=== PATIENT | female | born 1975 | race Caucasian/White ===

== ENCOUNTER 2017-06-15 11:17 | Emergency (ER) | payer SELFPAY ==
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
== END 2017-06-15 14:43 | disposition home or self-care (01) ==
LOC: ER 11:17
DX: M54.2 Cervicalgia (principal); M25.552 Pain in left hip; V49.49XA Driver injured in collision with other motor vehicles in traffic accident, initial encounter; F17.210 Nicotine dependence, cigarettes, uncomplicated; Z88.5 Allergy status to narcotic agent
CPT/HCPCS: 72125; 72131; 99284

== ENCOUNTER 2019-09-17 10:24 | Emergency (ER) | payer SELFPAY ==
[2019-09-17] MEDS ORDERED: FENTANYL CITR 100 MCG/2 ML ONE ×2 (11:01→12:01)
[2019-09-17] MEDS ORDERED: ONDANSETRON 4 MG/2 ML VIAL ONE (11:01)
[2019-09-17] MEDS ORDERED: NA CHLORIDE 0.9% 1,000 ML ONE (11:01)
[2019-09-17 11:02] LABS: Absolute Lymphocytes (CBC) 1.5 K/uL (0.7-4.9); Basophils % 1.3 % (0-1.3); Hematocrit 40.7 % (36.0-45.0); Lymphocytes % 18.3 % (15.3-44.8); MPV 8.9 fL (7.6-11.3); RBC Red Blood Cell Count 5.29 M/uL (3.86-4.86)
[2019-09-17 11:21] LABS: Albumin 3.8 g/dL (3.4-5.0); Bilirubin Direct 2.2 mg/dL (0-0.2); Bilirubin Total 2.7 mg/dL (0.2-1.0); Protein, Total 7.3 g/dL (6.4-8.2)
--- NOTE | 2019-09-17 11:24 | RAD REPORT ---
EXAM DESCRIPTION: US - Abdomen Exam Limited - 09/17/2019 11:18 am CLINICAL HISTORY: ABD PAIN COMPARISON: No comparisons FINDINGS: Numerous small less than 5 mm gallstones are present collecting in the dependent portion o f the gallbladder wall. There is no wall thickening or pericholecystic fluid. No common duct stone or biliary tree dilatation identified. IMPRESSION: Numerous small gallstones with no acute gallbladder wall finding. No duct stone or biliary tree dilatation identifiable.
[2019-09-17] MEDS ORDERED: PROMETHAZINE INJ 25 MG/ML AMP ONE ×2 (11:59→15:04)
[2019-09-17] MEDS ORDERED: NA CHLORIDE 0.9% 250 ML ONE (12:02)
--- NOTE | 2019-09-17 12:24 | EDPHYS ---
Physician Documentation [facility] Name: Rachel King Age: 43 yrs Sex: Female : 1975 Arrival Date: 09/17/2019 Time: 10:26 Bed 16 Private MD: ED Physician Todd Pool HPI: 09/16 11:55 This 43 yrs old Female presents to ER via Ambulatory with complaints of kb Abdominal Pain, Nausea/Vomiting. 11:55 The patient presents with abdominal pain in the right upper quadrant. Onset: The kb symptoms/episode began/occurred 2 day(s) ago. The symptoms radiate to right back. Associated signs and symptoms: Pertinent positives: nausea and vomiting, Pertinent negatives: anorexia, blood in stools, chest pain, constipation, diarrhea, dysuria, fever, headache, hematuria, palpitations, shortness of breath, vaginal discharge, vomiting blood. The symptoms are described as constant. Modifying factors: The symptoms are alleviated by nothing, the symptoms are aggravated by pressure. Severity of pain: At its worst the pain was severe in the emergency department the pain is unchanged. The patient has not experienced similar symptoms in the past. The patient has been recently seen by a physician: the ER physician, out of Town, yesterday, with similar presenting complaints, and apparently given a diagnosis of gallstones. 12:03 Pt reports RUQ pain that radiates to back, nausea and vomiting. States she was seen at [facility] ER last night and discharged with gallstones. States pain has been unbearable today and she has been unable to tolerate anything by mouth. . Historical: - Allergies: 11:11 Codeine; jr10 - Home Meds: 11:11 levothyroxine oral [Active]; jr10 - PMHx: 11:11 Thyroid problem; jr10 - Immunization history:: Adult Immunizations up to date. - Social history:: Smoking status: Patient reports the use of cigarette tobacco products, smokes one pack cigarettes per day. ROS: 11:53 Constitutional: Negative for fever, chills, and weight loss, Cardiovascular: Negative kb for chest pain, palpitations, and edema, Respiratory: Negative for shortness of breath, cough, wheezing, and pleuritic chest pain, Back: Negative for injury and pain, MS/Extremity: Negative for injury and deformity, Skin: Negative for injury, rash, and discoloration, Neuro: Negative for headache, weakness, numbness, tingling, and seizure. 11:53 Abdomen/GI: Positive for abdominal pain, nausea and vomiting, Negative for diarrhea, constipation, abdominal cramps, abdominal distension, anorexia. Exam: 11:53 Head/Face: Normocephalic, atraumatic. Chest/axilla: Normal chest wall appearance and kb motion. Nontender with no deformity. No lesions are appreciated. Cardiovascular: Regular rate and rhythm with a normal S1 and S2. No gallops, murmurs, or rubs. Normal PMI, no JVD. No pulse deficits. Respiratory: Lungs have equal breath sounds bilaterally, clear to auscultation and percussion. No rales, rhonchi or wheezes noted. No increased work of breathing, no retractions or nasal flaring. Skin: Warm, dry with normal turgor. Normal color with no rashes, no lesions, and no evidence of cellulitis. MS/ Extremity: Pulses equal, no cyanosis. Neurovascular intact. Full, normal range of motion. Neuro: Awake and alert, GCS 15, oriented to person, place, time, and situation. Cranial nerves II-XII grossly intact. Motor strength 5/5 in all extremities. Sensory grossly intact. Cerebellar exam normal. Normal gait. 11:53 Constitutional: The patient appears alert, awake, in obvious pain, uncomfortable. 11:53 Abdomen/GI: Inspection: abdomen appears normal, Bowel sounds: normal, in all quadrants, Palpation: soft, in all quadrants, moderate abdominal tenderness, in the right upper quadrant. 18:36 ECG was reviewed by the Attending Physician. kdr Vital Signs: 10:40 BP 146 / 71; Pulse 44; Resp 20; Temp 98.2(O); Pulse Ox 100% on R/A; Pain 10/10; jr10 11:59 BP 180 / 84; Pulse 44; Resp 24; Pulse Ox 100% on R/A; Pain 8/10; jr10 12:36 BP 156 / 94; Pulse 48; Resp 18; Pulse Ox 100% on R/A; ks7 12:42 Pulse Ox 100% ; ks7 13:18 BP 105 / 93; Pulse 46; Resp 24; Pulse Ox 100% on R/A; Pain 9/10; jr10 14:30 BP 110 / 95; Pulse 46; Resp 20; Pulse Ox 100% on R/A; Pain 8/10; jr10 MDM: 10:32 Patient medically screened. 11:42 Data reviewed: vital signs, nurses notes. Data interpreted: Pulse oximetry: on room air kb is 100 %. Interpretation: normal. Physician consultation: German Torres MD was contacted at 11:35, regarding consult, patient's condition, and will see patient in inpatient room. 11:43 Physician consultation: Geremias Pickard MD was contacted at 11:40, regarding admission, kb to the medical/surgical unit. patient's condition, would like consultation with . Wants me to confirm that Marcel will consult prior to admitting pt. 11:43 Physician consultation: He Rod MD was contacted at 11:42, regarding consult, kb patient's condition, message left with staff, awaiting call back. 11:51 Physician consultation: He Rod MD was contacted at 11:51, after a discussion of kb the case, a recommendation for transfer for higher level of care is made, Dr Rod states pt has obstructive jaundice and needs an ERCP. He is unable to do ERCP and requests pt be transferred. 11:52 Counseling: I had a detailed discussion with the patient and/or guardian regarding: the kb historical points, exam findings, and any diagnostic results supporting the discharge/admit diagnosis, lab results, radiology results, the need to transfer to another facility, for higher level of care, [facility] does not immediately have the required specialist. 12:42 ED course: Pt accepted for transfer by [facility] hospitalist and for consult by [facility] GI. Hospitalist wants pt swabbed for COVID here and swab sent with pt to be tested at their facility. . 09/16 10:42 Order name: Basic Metabolic Panel; Complete Time: 11:35 09/16 10:42 Order name: CBC with Diff; Complete Time: 11:17 kb 09/16 10:42 Order name: Hepatic Function; Complete Time: 11:35 kb 09/16 10:42 Order name: Lipase; Complete Time: 11:35 09/16 12:45 Order name: COVID-19 09/16 10:42 Order name: US Abdomen Limited; Complete Time: 11:35 09/16 10:42 Order name: IV Saline Lock; Complete Time: 11:11 kb 09/16 10:42 Order name: Labs collected and sent; Complete Time: 11:11 kb 09/16 13:12 Order name: EKG; Complete Time: 13:12 jr10 09/16 13:12 Order name: EKG - Nurse/Tech; Complete Time: 13:12 jr10 EC:36 Rate is 45 beats/min. Rhythm is regular, Sinus bradycardia with No ectopy. QRS [place] is kdr Normal. AL interval is normal. QRS interval is normal. QT interval is normal. No Q waves. Clinical impression: Sinus bradycardia. Administered Medications: 10:56 Drug: NS 0.9% 1000 ml Route: IV; Rate: 1000 ml; Site: left forearm; jr10 14:10 Follow up: Response: No adverse reaction; IV Status: Completed infusion jr10 10:56 Drug: Zofran (Ondansetron) 4 mg Route: IVP; Site: left forearm; jr10 11:25 Follow up: Response: No adverse reaction jr10 11:11 Drug: fentaNYL (PF) 50 mcg Route: IVP; Site: left forearm; jr10 11:25 Follow up: Response: No adverse reaction jr10 11:58 Drug: Phenergan 12.5 mg Route: IVP; Site: left forearm; jr10 12:42 Follow up: Pulse Ox 100% ; pt still nauseous ks7 13:17 Follow up: Response: No adverse reaction jr10 11:58 Drug: fentaNYL (PF) 50 mcg Route: IVP; Site: left forearm; jr10 13:17 Follow up: Response: No adverse reaction jr10 12:55 Drug: Zosyn 3.375 grams Route: IVPB; Infused Over: 60 mins; Site: left forearm; jr10 14:10 Follow up: Response: No adverse reaction; IV Status: Completed infusion jr10 14:55 Drug: Phenergan 12.5 mg {Note: given via AQUILES Michael.} Route: IVP; Site: left forearm; jr10 Disposition: 16:34 Co-signature as Attending Physician, Todd Pool MD I agree with the assessment and kdr plan of care. Disposition: 09/17/19 12:23 Transfer ordered to [facility]. Diagnosis are Cholelithiasis, Abnormal results of liver function studies. - Reason for transfer: Higher level of care. - Accepting physician is [facility]. - Condition is Stable. - Problem is new. - Symptoms are unchanged. Signatures: Dispatcher [employer] Charity Sheikh, UNDERGRADUATE ADVISOR-C UNDERGRADUATE ADVISOR-Todd Loya MD MD kdr Rivera, Jessica RN RN jr10 Iliana Palumbo RN ks7 Corrections: (The following items were deleted from the chart) 14:57 12:23 09/17/2019 12:23 Transfer ordered to [facility]. jr10 Diagnosis is Cholelithiasis; Abnormal results of liver function studies. Reason for transfer: Higher level of care. Accepting physician is [facility]. Condition is Stable. Problem is new. Symptoms are unchanged. kb
--- NOTE | 2019-09-17 12:24 | ER ---
Nurse's Notes [facility] Name: Rachel King Age: 43 yrs Sex: Female : 1975 Arrival Date: 09/17/2019 Time: 10:26 Bed 16 Private MD: Diagnosis: Cholelithiasis;Abnormal results of liver function studies Presentation: 09/16 10:40 Chief complaint: Patient states: Pt presents to the ED from home with c/o RUQ abd pain jr10 and n/v x2 days. States that she was seen at [facility] yesterday and dx with gallstones. Reports hx of gallstones and has been unable to follow up with general surgeon. Coronavirus screen: Client denies travel out of the [place] in the last 14 days. At this time, the client does not indicate any symptoms associated with coronavirus-19. Ebola Screen: No symptoms or risks identified at this time. Initial Sepsis Screen: Does the patient meet any 2 criteria? No. Patient's initial sepsis screen is negative. Does the patient have a suspected source of infection? No. Patient's initial sepsis screen is negative. Risk Assessment: Do you want to hurt yourself or someone else? Patient reports no desire to harm self or others. Onset of symptoms was September 15, 2019. 10:40 Method Of Arrival: Ambulatory jr10 10:40 Acuity: TWILA 2 jr10 Historical: - Allergies: 11:11 Codeine; jr10 - Home Meds: 11:11 levothyroxine oral [Active]; jr10 - PMHx: 11:11 Thyroid problem; jr10 - Immunization history:: Adult Immunizations up to date. - Social history:: Smoking status: Patient reports the use of cigarette tobacco products, smokes one pack cigarettes per day. Screenin:40 Abuse screen: Denies threats or abuse. Denies injuries from another. Nutritional jr10 screening: No deficits noted. Tuberculosis screening: No symptoms or risk factors identified. Fall Risk No fall in past 12 months (0 pts). No secondary diagnosis (0 pts). IV access (20 points). Ambulatory Aid- None/Bed Rest/Nurse Assist (0 pts). Gait- Normal/Bed Rest/Wheelchair (0 pts) Mental Status- Oriented to own ability (0 pts). Assessment: 10:40 General: Appears distressed, uncomfortable, Behavior is restless. Pain: Complains of jr10 pain in posterior aspect of right lateral abdomen and right upper quadrant Pain radiates to right mid back and right low back Pain currently is 10 out of 10 on a pain scale. Quality of pain is described as crampy, Pain began 2-3 days ago. Is continuous, Alleviated by nothing. Noted to be grimacing, guarding, moaning, restless, Also complains of nausea, diaphoresis. Neuro: No deficits noted. Cardiovascular: No deficits noted. Respiratory: No deficits noted. Airway is patent Respiratory effort is even, unlabored, Respiratory pattern is regular, symmetrical. GI: Abdomen is non-distended, Bowel sounds present X 4 quads. Abd is soft Abdomen is tender to palpation in right upper quadrant Guarding noted Reports intolerance of fluids, intolerance of food, nausea, vomiting, since x2 days. : No deficits noted. No signs and/or symptoms were reported regarding the genitourinary system. EENT: No deficits noted. No signs and/or symptoms were reported regarding the EENT system. Derm: Skin is intact, Skin is clammy, Skin is pale. Musculoskeletal: No deficits noted. No signs and/or symptoms reported regarding the musculoskeletal system. Vital Signs: 10:40 BP 146 / 71; Pulse 44; Resp 20; Temp 98.2(O); Pulse Ox 100% on R/A; Pain 10/10; jr10 11:59 BP 180 / 84; Pulse 44; Resp 24; Pulse Ox 100% on R/A; Pain 8/10; jr10 12:36 BP 156 / 94; Pulse 48; Resp 18; Pulse Ox 100% on R/A; ks7 12:42 Pulse Ox 100% ; ks7 13:18 BP 105 / 93; Pulse 46; Resp 24; Pulse Ox 100% on R/A; Pain 9/10; jr10 14:30 BP 110 / 95; Pulse 46; Resp 20; Pulse Ox 100% on R/A; Pain 8/10; jr10 ED Course: 10:26 Patient arrived in ED. ag5 10:31 Char[facility] Westbrook [facility]C [facility] kb 10:31 Todd Pool MD is Attending Physician. kb 10:35 Supriya Scruggs RN is Primary Nurse. jr10 10:40 Arm band placed on. jr10 10:40 Patient has correct armband on for positive identification. Bed in low position. Call jr10 light in reach. Side rails up X2. Pulse ox on. NIBP on. 10:40 Inserted saline lock: 20 gauge in left forearm, using aseptic technique. IV is patent, jr10 is intact, with good blood return, Flushed. 11:00 Triage completed. jr10 11:14 No provider procedures requiring assistance completed. jr10 11:18 US Abdomen Limited In Process Unspecified. EDMS 14:56 Patient transferred, IV remains in place. intact, No redness/swelling at site. Pressure jr10 dressing applied. Administered Medications: 10:56 Drug: NS 0.9% 1000 ml Route: IV; Rate: 1000 ml; Site: left forearm; jr10 14:10 Follow up: Response: No adverse reaction; IV Status: Completed infusion jr10 10:56 Drug: Zofran (Ondansetron) 4 mg Route: IVP; Site: left forearm; jr10 11:25 Follow up: Response: No adverse reaction jr10 11:11 Drug: fentaNYL (PF) 50 mcg Route: IVP; Site: left forearm; jr10 11:25 Follow up: Response: No adverse reaction jr10 11:58 Drug: Phenergan 12.5 mg Route: IVP; Site: left forearm; jr10 12:42 Follow up: Pulse Ox 100% ; pt still nauseous ks7 13:17 Follow up: Response: No adverse reaction jr10 11:58 Drug: fentaNYL (PF) 50 mcg Route: IVP; Site: left forearm; jr10 13:17 Follow up: Response: No adverse reaction jr10 12:55 Drug: Zosyn 3.375 grams Route: IVPB; Infused Over: 60 mins; Site: left forearm; jr10 14:10 Follow up: Response: No adverse reaction; IV Status: Completed infusion jr10 14:55 Drug: Phenergan 12.5 mg {Note: given via RN. Alec} Route: IVP; Site: left forearm; jr10 Intake: Outcome: 12:23 ER care complete, transfer ordered by MD. flores 14:55 Transferred by [facility] to [facility], Transfer form completed. jr10 14:55 Condition: stable 14:55 Instructed on the need for transfer, Demonstrated understanding of instructions. 14:57 Patient left the ED. jr10 Signatures: Dispatcher [employer] EDMS Charity Westbrook, [employer]-C [employer]-Bia Cary ag5 Iliana Palumbo, RN RN ks7 Supriya Scruggs RN RN jr10
[2019-09-17] MEDS ORDERED: PIPER/TAZO/NS 3.375gm 3.375 GM/100 ML BAG ONE (12:53)
--- OUTSIDE RECORDS SUMMARY | 2019-09-17 13:09 | XMS REPORT | Continuity of Care Document ---
:1975 Author Organization [facility] t Address [address] [place] [address] Care Team Providers Name Role Phone Doctor Unassigned, Name Attending Clinician Unavailable Zarate DO Attending Clinician Problems This patient has no known problems. Allergies, Adverse Reactions, Alerts This patient has no known allergies or adverse reactions. Medications This patient has no known medications. Procedures This patient has no known procedures. Encounters Start End Encounter Admission Attending Care Care Encounter Source Date/Time Date/Time Type Type Clinicians Facility Department ID 2018-10-03 2018-10-03 Orders Doctor ARNOLD [id number] 00:00:00 00:00:00 Only Unassigned, ABRIL [id number] [facility] [id number] 2018-09-16 2018-09-16 Emergency BERNADINE Zarate [id number] 08:27:28 11:43:00 Georges Finnegan [id number] [place] [id number] [place] [id number] Results This patient has no known results.
[2019-09-17 15:03] VITALS: TEMP 98.2; O2SAT 100
[2019-09-17 15:09] VITALS: BP 110/95
== END 2019-09-17 14:57 | disposition short-term general hospital (02) ==
LOC: ER 10:24
DX: K80.20 Calculus of gallbladder without cholecystitis without obstruction (principal); Z20.828 Contact with and (suspected) exposure to other viral communicable diseases; E07.9 Disorder of thyroid, unspecified; F17.210 Nicotine dependence, cigarettes, uncomplicated; Z88.5 Allergy status to narcotic agent
CPT/HCPCS: 36415; 76705; 80048; 80076; 83690; 85025; 93005; 96361; 96365; 96375; 99285; J2405; J2543; J2550; J3010; J7030; J7050; U0003

== ENCOUNTER 2019-10-30 17:03 | Emergency (ER) | payer SELFPAY ==
--- OUTSIDE RECORDS SUMMARY | 2019-10-30 17:05 | XMS REPORT | Clinical Summary ---
:1975 Author Organization [facility] Address [address] [place] [address] Care Team Providers Name Role Phone Unavailable Primary Care Provider Unavailable Allergies Active Allergy Reactions Severity Noted Date Comments Codeine Itching 09/17/2019 Per pt takes be nadryl with med Medications Medication Sig Dispensed Refills Start Date End Date Status ferrous sulfate 325 Take 1 tablet 60 tablet 0 09/23/201909/221 Active (65 FE) MG EC (325 mg tablet total) by mouth 2 (two) times daily. levothyroxine Take 300 mcg 0 09/23/2019 Di scontinued (SYNTHROID, by mouth LEVOTHROID) 300 MCG Every morning tablet on an empty stomach. levothyroxine Take 4 30 tablet 0 09/23/2019 09/23/2019 Disc ontinued (SYNTHROID, tablets (300 LEVOTHROID) 75 MCG mcg total) by tablet mouth Every morning on an empty stomach. promethazine Take 1 tablet 30 tablet 0 09/23/2019 09/30/2019 E xpired (PHENERGAN) 12.5 MG (12.5 mg tablet total) by mouth every 6 (six) hours as needed for Nausea for up to 7 days. docusate sodium Take 1 10 capsule 0 09/23/2019 10/03/2019 E xpired (COLACE) 100 MG capsule (100 capsule mg total) by mouth 2 (two) times daily for 10 days. levothyroxine Take 1 tablet 30 tablet 0 09/23/2019 10/23/2019 (SYNTHROID, (125 mcg LEVOTHROID) 125 MCG total) by tablet mouth Every morning on an empty stomach for 30 days. Active Problems Problem Noted Date Choledocholithiasis 09/17/2019 Encounters Date Type Specialty Care Team Description 09/22/2019 Anesthesia Event Eric Toledo, ALENA 09/22/2019 Surgery Robin Mack LAPAROSCOPY, C HOLECYS MD TECTOMY 09/18/2019 Anesthesia Event Gastroenterology Darrell Mehta MD 09/18/2019 Surgery Gastroenterology Rafael Patrick ERCP,PANC STEVE Corona MD STENT 09/18/2019 Travel 09/17/2019 [facility] Internal Athreya, Choledochol ithiasis; - Encounter Medicine Meng Hypothyroidism (acquired) 09/23/2019 MD Karma Vera Fang-Ying, MD Adio, Debbie Knapp MD after 10/29/2018 Family History Medical History Relation Name Comments Diabetes Father Cancer Maternal Grandmother Diabetes Maternal Grandmother Diabetes Mother Relation Name Status Comments Father Maternal Grandmother Mother Social History Tobacco Use Types Packs/Day Years Used Date Current Every Day Smoker 1 30 Smokeless Tobacco: Never Used Tobacco Cessation: Counseling Given: No Comments: Pt willing to quit as verbaliz ed. Alcohol Use Drinks/Week oz/Week Comments No Alcohol Habits Answer Date Recorded How often do you have a drink containing alcohol? Never 09/17/2019 How many drinks containing alcohol do you have on a typical Not asked day when you are drinking? How often do you have six or more drinks on one occasion? No t asked Sex Assigned at Date Recorded Not on file Job Start Date Occupation Industry Not on file Not on file Not on file Travel History Travel Start Travel End No recent travel history available. 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 HEPATIC FUNCTION Routine 09/23/2019 4:19 Results for this PANEL AM CDT procedure are i n the results section. CBC W/PLT COUNT & Routine 09/23/2019 4:19 Result s for this AUTO DIFFERENTIAL AM CDT procedure are in the results section. BASIC METABOLIC PANEL Routine 09/23/2019 4:19 Re sults for this (7) AM CDT procedure are i n the results section. TRANSFUSION SERVICE 09/22/2019 6:00 REPORT - SCAN PM CDT TISSUE EXAM AP Routine 09/22/2019 3:43 Results for this PM CDT procedure are i n the results section. LAPAROSCOPY,CHOLECYST 09/22/2019 2:00 Choledoch olithiasis ECTOMY PM CDT Choledochitis (CELLAVISION MANUAL Routine 09/22/2019 4:38 Resu lts for this DIFF) AM CDT procedure are i n the results section. CBC WITH PLATELET Routine 09/22/2019 4:38 Result s for this COUNT + MANUAL DIFF AM CDT procedur e are in the results section. PROTHROMBIN TIME/INR Routine 09/22/2019 4:38 Res ults for this AM CDT procedure are i n the results section. HEPATIC FUNCTION Routine 09/22/2019 4:38 Results for this PANEL AM CDT procedure are i n the results section. BASIC METABOLIC PANEL Routine 09/22/2019 4:38 Re sults for this (7) AM CDT procedure are i n the results section. CBC W/PLT+MANUAL DIFF Routine 09/22/2019 4:38 Re sults for this AM CDT procedure are i n the results section. TYPE AND SCREEN, Routine 09/21/2019 5:36 Results for this AUTOMATED PM CDT procedure are i n the results section. T4, FREE Routine 09/21/2019 5:36 Results for this PM CDT procedure are i n the results section. BASIC METABOLIC PANEL Routine 09/21/2019 5:20 Re sults for this (7) AM CDT procedure are i n the results section. HEPATIC FUNCTION Routine 09/21/2019 5:20 Results for this PANEL AM CDT procedure are i n the results section. TRANSFUSION SERVICE 09/20/2019 6:01 REPORT - SCAN PM CDT COMPREHENSIVE Routine 09/20/2019 5:23 Results fo r this METABOLIC PANEL AM CDT procedure ar e in the results section. CBC (HEMOGRAM ONLY) Routine 09/20/2019 5:23 Resu lts for this AM CDT procedure are i n the results section. FERRITIN Routine 09/20/2019 5:23 Results for this AM CDT procedure are i n the results section. IRON, TIBC, % SAT. Routine 09/20/2019 5:23 Resul ts for this (WITHOUT FERRITIN) AM CDT procedure are in the results section. T4, FREE Routine 09/20/2019 5:23 Results for this AM CDT procedure are i n the results section. TRANSFUSION SERVICE 09/19/2019 6:01 REPORT - SCAN PM CDT XR CHEST 1 VIEW Routine 09/19/2019 3:49 Results for this PORTABLE/BEDSIDE PM CDT procedure a re in the results section. CBC (HEMOGRAM ONLY) Routine 09/19/2019 4:34 Resu lts for this AM CDT procedure are i n the results section. ABORH, MANUAL STAT 09/19/2019 4:33 Results fo r this AM CDT procedure are i n the results section. HEPATIC FUNCTION Routine 09/19/2019 4:33 Results for this PANEL AM CDT procedure are i n the results section. BASIC METABOLIC PANEL Routine 09/19/2019 4:33 Re sults for this (7) AM CDT procedure are i n the results section. FL ERCP Routine 09/18/2019 6:10 Results for this PM CDT procedure are i n the results section. ERCP,BALLOON SWEEPING 09/18/2019 3:00 Imaging abnorma lity PM CDT ERCP,PAPILLOTOMY 09/18/2019 3:00 Imaging abnormality PM CDT PROCEDURE W/ C-ARM 09/18/2019 3:00 Imaging abnormalit y PM CDT ERCP,PANCREATIC STENT 09/18/2019 3:00 Imaging abnorma lity PM CDT ECG 12-LEAD Routine 09/18/2019 12:01 Results for this PM CDT procedure are i n the results section. CBC W/PLT COUNT & Routine 09/18/2019 5:25 Result s for this AUTO DIFFERENTIAL AM CDT procedure are in the results section. TYPE AND SCREEN, Routine 09/18/2019 5:25 Results for this AUTOMATED AM CDT procedure are i n the results section. T4, FREE Routine 09/18/2019 5:25 Results for this AM CDT procedure are i n the results section. TSH/FREE T4 IF Routine 09/18/2019 5:25 Results f or this INDICATED AM CDT procedure are i n the results section. CBC W/PLT COUNT & Routine 09/18/2019 5:25 Result s for this AUTO DIFFERENTIAL AM CDT procedure are in the results section. HEPATIC FUNCTION Routine 09/18/2019 5:25 Results for this PANEL AM CDT procedure are i n the results section. BASIC METABOLIC PANEL Routine 09/18/2019 5:25 Re sults for this (7) AM CDT procedure are i n the results section. SARS-COV2/RT-PCR Routine 09/18/2019 12:57 Results for this ([facility] REF LAB[facility]) AM CDT procedure are in the results section. SCREEN, Routine 09/18/2019 12:14 Result s for this URINE AM CDT procedure are i n the results section. COMPREHENSIVE Routine 09/17/2019 5:39 Results fo r this METABOLIC PANEL PM CDT procedure ar e in the results section. CBC (HEMOGRAM ONLY) Routine 09/17/2019 5:39 Resu lts for this PM CDT procedure are i n the results section. after 10/29/2018 Results REPORT OF PROCEDURE - ENDOSCOPY URL (10/01/2019 2:25 PM CDT) Narrative Performed At This result has an attachment that is no t available. RHYTHM STRIP - SCAN (09/24/2019 1:40 PM CDT) Narrative Performed At This result has an attachment that is no t available. CBC with platelet count + automated diff (09/23/2019 4:19 AM CDT)Only the most recent of2 resultswithin the time period is included. WBC 9.0 3.5 - 10.5 K/L [facility] RBC 4.69 3.93 - 5.22 M/L [facility] Hemoglobin 11.4 11.2 - 15.7 GM/DL [facility] Hematocrit 38.8 34.1 - 44.9 % [facility] CENTER MCV 82.7 79.4 - 94.8 fL [facility] MCH 24.3 (L) 25.6 - 32.2 pg [facility] MCHC 29.4 (L) 32.2 - 35.5 GM/DL [facility] RDW 18.0 (H) 11.7 - 14.4 % [facility] CENTER Platelets 180 150 - 450 K/CU MM [facility] MPV 10.4 9.4 - 12.3 fL [facility] nRBC 0 0 - 0 /100 WBC [facility] % Neutros 79 % [facility] % Lymphs 12 % [facility] % Monos 7 % [facility] CENTER % Eos 0 % [facility] % Baso 1 % [facility] # Neutros 7.11 (H) 1.56 - 6.13 K/L [facility] # Lymphs 1.10 (L) 1.18 - 3.74 K/L [facility] # Monos 0.65 (H) 0.24 - 0.36 K/L [facility] # Eos 0.03 (L) 0.04 - 0.36 K/L [facility] # Baso 0.08 0.01 - 0.08 K/L [facility] Immature Granulocytes-Relative 0 0 - 1 % C HI [facility] Specimen Blood Performing Organization Address City/State/Zipcode Phone Number [facility] [address] [place] [address] CENTER Hepatic function panel (09/23/2019 4:19 AM CDT)Only the most recent of5 results within the time period is included. Protein, Total 6.5 6.0 - 8.3 gm/dL [facility] Albumin 4.1 3.5 - 5.0 g/dL [facility] Total Bilirubin 0.5 0.2 - 1.2 mg/dL [facility] Bilirubin, Direct 0.3 0.1 - 0.5 mg/dL [facility] Alkaline Phosphatase 105 40 - 150 U/L [facility] AST 27 5 - 34 U/L [facility] ALT 95 (H) 6 - 55 U/L [facility] Specimen Blood Narrative Performed At Section Hand ID - HALI [facility] Performing Organization Address City/State/Zipcode Phone Number [facility] [address] [place] [address] CENTER Basic Metabolic Panel (09/23/2019 4:19 AM CDT)Only the most recent of5 results within the time period is included. Sodium 138 136 - 145 meq/L [facility] Potassium 4.4 3.5 - 5.1 meq/L [facility] Chloride 106 98 - 107 meq/L [facility] CO2 25 22 - 29 meq/L [facility] BUN 5 (L) 7 - 21 mg/dL [facility] Creatinine 0.79 0.57 - 1.25 mg/dL [facility] Glucose 109 (H) 70 - 105 mg/dL [facility] Calcium 9.5 8.4 - 10.2 mg/dL [facility] EGFR 79Comment: ESTIMATED GFR IS mL/min/1.73 sq m [facility] NOT ACCURATE CREATININE [facility] CLEARANCE IN PREDICTING GLOMERULAR FILTRATION RATE. ESTIMATED GFR IS NOT APPLICABLE FOR DIALYSIS PATIENTS. Specimen Blood Narrative Performed At Section Hand ID - HALI [facility] Performing Organization Address City/State/Zipcode Phone Number [facility] [address] [place], [place] [phone] CENTER TRANSFUSION SERVICE REPORT - SCAN (09/22/2019 6:00 PM CDT)Only the most recent of3 resultswithin the time period is included. Narrative Performed At This result has an attachment that is no t available. Tissue Exam (09/22/2019 3:43 PM CDT) Case Report Surgical Pathology Report Case: [id number] [facility] Authorizing Provider:Robin Arauz MDCollected: 09/22/2019 03:43 PM [facility] Ordering Location: [facility] Received:09/22/2019 06:13 PM SERVICES Pathologist: Elio Cox MD Specimen:Gallbladder DIAGNOSIS A. GALLBLADDER, CHOLECYSTECTOMY: [facility] - CHRONIC CHOLECYSTITIS [facility] - NEGATIVE FOR DYSPLASIA OR MALIGNANCY Signing Pathologist Direct Phone Line: [phone] CPT Code(s) 35012 [facility] ER CLINICAL HISTORY Choledochitis, choledocholithiasis. [facility] SPECIMEN SOURCE Gallbladder [facility] ER GROSS DESCRIPTION Received in formalin labeled C [facility] with the patient's name, [facility] accession number and "gallbladder" is a 6.7 x 2.1 x 1.5 cm intact gallbladder with a 0.2 cm in length x 0.2 cm in diameter attached cystic duct. The serosa is martin-yellow, smooth and hyperemic. The specimen is opened to reveal approximately 4 mL of yellow sludge-like bile. Calculi are not identified. The mucosa is martin and trabeculated. The wall measures 0.2 cm thick. [employer] sections are submitted in A1-A2, with the inked cystic duct margin in A1. PA/ew MICROSCOPIC DESCRIPTION Performed. [facility] ER Specimen Tissue Performing Organization Address City/State/Zipcode Phone Number [facility] [address] [place] [address] [place] CBC with platelet count + manual diff (09/22/2019 4:38 AM CDT) WBC 5.0 3.5 - 10.5 K/L [facility] RBC 4.26 3.93 - 5.22 M/L [facility] Hemoglobin 10.6 (L) 11.2 - 15.7 GM/DL [facility] Hematocrit 35.3 34.1 - 44.9 % [facility] MCV 82.9 79.4 - 94.8 fL [facility] MCH 24.9 (L) 25.6 - 32.2 pg [facility] MCHC 30.0 (L) 32.2 - 35.5 GM/DL [facility] RDW 17.7 (H) 11.7 - 14.4 % [facility] Platelets 179 150 - 450 K/CU MM [facility] MPV 11.3 9.4 - 12.3 fL [facility] nRBC 0 0 - 0 /100 WBC [facility] Specimen Blood Performing Organization Address City/State/Zipcode Phone Number [facility] [address] [place] [address] [place] Manual Differential (09/22/2019 4:38 AM CDT) % Neutros 57 % [facility] % Lymphs 29 % [facility] % Monos 7 % [facility] % Eos 1 % [facility] % Bands 6 0 - 10 % [facility] % Atypical Lymphs 2 (H) 0 - 0 % [facility] # Neutros 2.85 1.56 - 6.13 K/ul [facility] # Lymphs 1.45 1.18 - 3.74 K/ul [facility] # Monos 0.35 0.24 - 0.36 K/uL [facility] # Eos 0.05 0.04 - 0.36 K/uL [facility] # Bands 0.30 0.00 - 0.80 K/uL [facility] # Atypical Lymphs 0.10 (H) 0.00 - 0.00 K/uL [facility] Total Counted 100 [facility] RBC Morphology Normal [facility] WBC Morphology Normal [facility] Platelet Morphology Normal [facility] Artifact Present [facility] Platelet Conc Adequate [facility] Specimen Blood Narrative Performed At Section Hand ID - Marleni Overholt [facility] User comments: Slide comments: Performing Organization Address City/State/Zipcode Phone Number [facility] [address] [place] [address] CENTER Prothrombin time/INR (09/22/2019 4:38 AM CDT) Protime 13.8 11.9 - 14.2 seconds [facility] INR 1.09 <=5.90 [facility] Specimen Blood Narrative Performed At Effective 07/03/2018: PT Reference Range [facility] Change New: 11.9-14.2Previous: 11.7-14.7 RECOMMENDED COUMADIN/WARFARIN INR THERAPY RANGES STANDARD DOSE: 2.0-3.0Includes: PROPHYLAXIS for venous thrombosis, systemic embolization; TREATMENT for venous thrombosis and/or pulmonary embolus. HIGH RISK: Target INR is 2.5-3.5 for patients wiht mechanical heart valves. Performing Organization Address [facility] Phone Number [address] [address] CENTER Type and screen, automated (09/21/2019 5:36 PM CDT)Only the most recent of2 resultswithin the time period is included. ABO/RH AUTOMATED (BEAKER) O POSITIVE [facility] Ab Scrn NEGATIVE [facility] Specimen Blood Performing Organization Address [facility] Phone Number [address] [address] T4, free (09/21/2019 5:36 PM CDT)Only the most recent of3 resultswithin the time period is included. Free T4 0.67 (L) 0.70 - 1.48 ng/dL [facility] Specimen Blood Narrative Performed At Section Hand ID - DB [facility] Performing Organization Address [facility] Phone Number [address] [address] CENTER Iron, TIBC, % sat. (without ferritin) (09/20/2019 5:23 AM CDT) Iron 20.0 (L) 40.0 - 160.0 ug/dL [facility] TIBC 305 250 - 450 ug/dL [facility] Iron % Saturation 7 (L) 20 - 55 % [facility] Specimen Blood Narrative Performed At Section Hand ID - LORELEI M [facility] Performing Organization Address [facility] Phone Number [place] [phone] [place] [address] [place] CBC (Hemogram only) (09/20/2019 5:23 AM CDT)Only the most recent of3 results within the time period is included. WBC 6.0 3.5 - 10.5 K/L [facility] RBC 4.27 3.93 - 5.22 M/L [facility] Hemoglobin 10.4 (L) 11.2 - 15.7 GM/DL [facility] Hematocrit 34.9 34.1 - 44.9 % [facility] MCV 81.7 79.4 - 94.8 fL [facility] MCH 24.4 (L) 25.6 - 32.2 pg [facility] MCHC 29.8 (L) 32.2 - 35.5 GM/DL [facility] RDW 17.3 (H) 11.7 - 14.4 % [facility] Platelets 184 150 - 450 K/CU MM [facility] MPV 10.7 9.4 - 12.3 fL [facility] nRBC 0 0 - 0 /100 WBC [facility] Specimen Blood Performing Organization Address City/[facility]/Zipcode Phone Number [address] [address] CENTER Ferritin (09/20/2019 5:23 AM CDT) Ferritin 8.29 5.00 - 275.00 ng/mL [facility] Specimen Blood Narrative Performed At Section Hand SANTIAGO Mercedes [facility] Performing Organization Address City/[facility]/Zipcode Phone Number [address] [address] CENTER Comprehensive metabolic panel (09/20/2019 5:23 AM CDT)Only the most recent of2 resultswithin the time period is included. Protein, Total 5.3 (L) 6.0 - 8.3 gm/dL [facility] Albumin 3.3 (L) 3.5 - 5.0 g/dL [facility] Alkaline Phosphatase 122 40 - 150 U/L [facility] Total Bilirubin 0.5 0.2 - 1.2 mg/dL [facility] Sodium 138 136 - 145 meq/L [facility] Potassium 3.8 3.5 - 5.1 meq/L [facility] Chloride 112 (H) 98 - 107 meq/L [facility] CO2 19 (L) 22 - 29 meq/L [facility] BUN 10 7 - 21 mg/dL [facility] Creatinine 0.74 0.57 - 1.25 mg/dL [facility] ER Glucose 74 70 - 105 mg/dL [facility] Calcium 8.0 (L) 8.4 - 10.2 mg/dL [facility] AST 33 5 - 34 U/L [facility] ALT 179 (H) 6 - 55 U/L [facility] EGFR 85Comment: ESTIMATED GFR mL/min/1.73 sq m [facility] IS NOT ACCURATE [facility] CREATININE CLEARANCE IN PREDICTING GLOMERULAR FILTRATION RATE. ESTIMATED GFR IS NOT APPLICABLE FOR DIALYSIS PATIENTS. Specimen Blood Narrative Performed At Section Hand SANTIAGO - LORELEI Mercedes [facility] CENTER Performing Organization Address City/State/Zipcode Phone Number [facility] [address] [place] [address] CENTER XR chest 1 view portable / bedside (09/19/2019 3:49 PM CDT) Specimen Narrative Performed At FINAL REPORT [facility] TECHNIQUE: Frontal view of the chest. INDICATION: pre-op screening with h/o to bacco COMPARISON:None DISCUSSION: Limited evaluation due to portable techn ique. Lines and hardware: None Heart and mediastinum: Unremarkable Lungs and pleura: No focal airspace cons olidation. No pleural effusion. No pneumothorax. Soft tissues and bones: No acute abnorma lity. IMPRESSION: Negative for acute intrathoracic process . Signed: Kim Mcneill MD Report Verified Date/Time:09/19/2019 16:03:48 Reading Location: [address] Reading Room Procedure Note Interface, External Ris In - 09/19/2019 4:06 PM CDT FINAL REPORT TECHNIQUE: Frontal view of the chest. INDICATION: pre-op screening with h/o to bacco COMPARISON:None DISCUSSION: Limited evaluation due to portable techn ique. Lines and hardware: None Heart and mediastinum: Unremarkable Lungs and pleura: No focal airspace cons olidation. No pleural effusion. No pneumothorax. Soft tissues and bones: No acute abnorma lity. IMPRESSION: Negative for acute intrathoracic process . Signed: Kim Mcneill MD Report Verified Date/Time: 09/19/2019 1 6:03:48 Reading Location: [address] Reading Room Performing Organization Address City/State/Zipcode Phone Number RIS ABORH, manual (09/19/2019 4:33 AM CDT) ABO Grouping O [facility] Rh Factor POS [facility] Specimen Blood Performing Organization Address City/[facility]/Zipcode Phone Number [facility] [address] [place] [address] [place] Endoscopic Retrograde Cholangiopancreatography (09/18/2019 6:10 PM CDT) Specimen Narrative Performed At Fluoroscopic unit utilized for a procedure performed i n the OR.No GE RIS interpretation was requested.Refer to the operativ e report for findings.Refer to PACS for patient radiation dose information. Procedure Note Interface, External Ris In - 09/18/2019 6:38 PM CDT Fluoroscopic unit utilized for a procedu re performed in the OR. No interpretation was requested. Refer to the operative r eport for findings. Refer to PACS for patient radiation dose information. Performing Organization Address City/[facility] Phone Number GE RIS ECG 12 lead (09/18/2019 12:01 PM CDT) Specimen Narrative Performed At Ventricular Rate 51 BPM GE MUSE Atrial Rate 51 BPM P-R Interval 136 ms QRS Duration 88 ms Q-T Interval 496 ms QTC Calculation(Bazett) 457 ms P [place] 66 degrees R [place] 61 degrees T [place] 55 degrees Sinus bradycardia Otherwise normal ECG No previous ECGs available Confirmed by MD Park Roberto ([id number]) on 09/17 2:22:36 PM Procedure Note Interface, External Ris In - 09/18/2019 2:22 PM CDT Ventricular Rate 51 BPM Atrial Rate 51 BPM P-R Interval 136 ms QRS Duration 88 ms Q-T Interval 496 ms QTC Calculation(Bazett) 457 ms P [place] 66 degrees R [place] 61 degrees T [place] 55 degrees Sinus bradycardia Otherwise normal ECG No previous ECGs available Confirmed by MD Park Roberto ([id number]) on 09/18/2019 2:22:36 PM Performing Organization Address [facility] Phone Number GE MUSE TSH/Free T4 If Indicated (09/18/2019 5:25 AM CDT) TSH 8.511 (H) 0.350 - 4.940 uIU/mL [facility] Specimen Blood Narrative Performed At Section Hand ID - [facility]AL [facility]ENTER Performing Organization Address [facility]/Zipcode Phone Number [facility] MEDICAL [address] [place] [phone] CENTER SARS-CoV2/RT-PCR (Asymptomatic ONLY) (09/18/2019 12:57 AM CDT) SARS-COV2/RT-PCR Negative Not Detected, Negative, [facility] See external report for MEDICAL CENTER linked test SARS-COV-2 PERFORMING LAB [facility] Specimen Other Narrative Performed At Negative result for this test determines that [facility] SARS-CoV-2 RNA was not present in the specimen above the Limit of Detection (LOD).However, Negative results do not preclude SARS-CoV-2 infection and should not be used as the sole basis for treatment or patient management decisions. Negative results must be combined with clinical observations, patient history, and epidemiological information. A false negative result may occur if a specimen is improperly collected, transported or handled.A false negative result should be considered if patient's recent exposures or clinical presentation indicate that COVID-19 (SARS-CoV-2) is likely and diagnostic tests for other causes of illness are negative.Re-testing should be considered in cases of suspected false negatives. The limit of detection for this assay is 800 copies/mL. This SARS CoV-2 test is a real-time RT-PCR test intended for the qualitative detection of nucleic acid from SARS-CoV-2 in a nasopharyngeal swab specimen collected from individuals suspected of COVID-19 by their healthcare provider. This test has not been Food and Drug Administration (FDA) cleared or approved.This is a modified version of an approved Emergency Use Authorization (EUA) and is in the process of review by the FDA. Once authorized by the FDA, the issued EUA will be effective until the declaration that circumstances exist justifying the authorization of the emergency use of in vitro diagnostic tests for detection and/or diagnosis of COVID-19 is terminated under Section 564(b)(2) of the Act or the EUA is revoked under Section 564(g) of the Act. Fact Sheet for Healthcare Providers: https://www.[employer].com/sites/default/files/pro duct/documents/Fact_Sheet_HC_Providers_Lyra_SA RS-CoV-2.pdf Fact Sheet for Healthcare Patients: https://www.[employer].com/sites/default/files/pro duct/documents/Fact_Sheet_Patients_Lyra_SARS-C oV-2.pdf Performing Laboratory: [place] [address] [place] [address] Performing Organization Address City/State/Zipcode Phone Number [facility] [address] [place] [address] [place] Screen, urine (09/18/2019 12:14 AM CDT) Preg Test, Ur Negative [facility] Specimen Urine Performing Organization Address [facility]/Zipcode Phone Number [facility] [address] [place] [address] [place] after 10/29/2018 Insurance Payer Benefit Plan / Group Subscriber ID Type Phone A ddress CDC REVIEW CDC REVIEW xxxxxxxx [address] [place], [place] [phone] Advance Directives For more information, please contact:[address] [phone] Code Status Date Activated Date Inactivated Comments Full Code 09/17/2019 5:09 PM 09/23/2019 4:14 PM This code status was determined by: Patient
--- OUTSIDE RECORDS SUMMARY | 2019-10-30 17:07 | XMS REPORT | Continuity of Care Document ---
:1975 Author Organization [facility] t Address [address] [place] [address] Care Team Providers Name Role Phone JODY MIN Attending Clinician Unavailable Jody Min MD Attending Clinician Jayson SHAVER Attending Clinician Jordan SHAVER, RVenkatesh Attending Clinician Paris CARVAJAL Attending Clinician Martina SHAVER Attending Clinician Segundo Mehta MD Attending Clinician Cj Patrick MD Attending Clinician Doctor Unassigned, Name Attending Clinician Unavailable Singer MIN Attending Clinician JAYSON Admitting Clinician Unavailable Payers Payer Name Policy Type Policy Number Effective Date Expiration Date S ource [facility] REVIEWCDC xxxxxxxx [facility] RE[facility]PO Located within [facility] [id number] Center Problems Condition Condition Condition Status Onset Resolution Last Treating Co mments Source Name Details Category Date Date Treatment Clinician Date Choledocho Choledocho Disease Active C [facility] lithiasis lithiasis 09-16 [facility] - 00:00: Medical 00 Center Allergies, Adverse Reactions, Alerts Allergy Allergy Status Severity Reaction(s) Onset Inactive Treating Comm ents Source Name Type Date Date Clinician Codemeron Propensi Active Itching 2020-[address] [address] [facility] - adverse 00:00: benadryl Medical reaction 00 with [facility] s Family History Family Member Diagnosis Comments Start Date Stop Date Source Natural father Diabetes [facility] Maternal grandmother Cancer [facility] Maternal grandmother Diabetes [facility] Natural mother Diabetes [facility] Social History Social Habit Start Date Stop Date Quantity Comments [facility] History SDOH [facility] - Alcohol Binge Medical [facility] Sex Assigned At [facility] Cigarettes smoked 2019-09-23 2019-09-23 [facility] - current (pack per 00:00:00 00:00:00 [facility] Center day) - Reported Cigarette 2019-09-23 2019-09-23 [facility] - pack-years 00:00:00 00:00:00 [facility] Tobacco Comment 2019-09-18 2019-09-18 Pt willing to [facility] - 00:00:00 00:00:00 quit as [facility] Center verbalized. History SDOH 2019-09-17 2019-09-[address] [facility] - Alcohol Frequency 00:00:00 00:00:00 [facility] Smoking Status Start Date Stop Date Source Current every day smoker 2019-09-23 00:00:00 [facility] Medications Ordered Filled Start Stop Current Ordering Indication Dosage Frequency Signature Comments Components Source Medication Medication Date Date Medication? Clinician (SIG) Name Name levothyroxi 2020- No 300ug Take [address] ne 09-22 mcg by [facility] - (SYNTHROID, 11:39: 00:00 mouth Medi gian LEVOTHROID) 20 :00 [facility] 300 MCG morning on tablet an empty stomach. ferrous 2020- Yes 325mg Q.5D Take [address] sulfate 325 09-22 tablet [facility] - (65 FE) MG 00:00: 23:59 (325 mg Med ical EC tablet 00 :00 total) by Cente r mouth 2 (two) times daily. levothyroxi 2020- No 125ug Take [address] ne 09-22 tablet [facility] - (SYNTHROID, 00:00: 23:59 (125 mcg M edical LEVOTHROID) 00 :00 total) by [facility]ha ter 125 MCG mouth tablet Every morning on an empty stomach for 30 days. docusate No 100mg Q.5D Take 1 [facility] sodium 09-22 capsule [facility] - (COLACE) 00:00: 23:59 (100 mg Medic al 100 MG 00 :00 total) by Center capsule mouth 2 (two) times daily for 10 days. promethazin No 12.5mg Take [address] e 09-22 tablet [facility] - (PHENERGAN) 00:00: 23:59 (12.5 mg M edical 12.5 MG 00 :00 total) by Center tablet mouth every 6 (six) hours as needed for Nausea for up to 7 days. levothyroxi No 300ug Take [address] ne 09-22 tablets [facility] - (SYNTHROID, 00:00: 00:00 (300 mcg M edical LEVOTHROID) 00 :00 total) by [facility] ter 75 MCG mouth tablet Every morning on an empty stomach. Vital Signs Vital Name Observation Time Observation Value Comments Source Respiratory rate 2019-09-23 13:36:00 18 /min [facility] Oxygen saturation in 2019-09-23 13:36:00 97 /min [facility] Arterial blood by Medical Ce nter Pulse oximetry Systolic blood 2019-09-23 11:37:00 123 mm[Hg] [facility] Diastolic blood 2019-09-23 11:37:00 64 mm[Hg] [facility] Heart rate 2019-09-23 11:37:00 61 /min [facility] Body temperature 2019-09-23 11:37:00 36.39 Gela [facility] Body height 2019-09-18 14:25:00 167.6 cm [facility] Body weight Measured 2019-09-18 14:25:00 80.831 kg [facility] BMI 2019-09-18 14:25:00 28.76 kg/m2 [facility] Procedures Procedure Date / Time Performed Performing Clinician [facility] e REPORT OF PROCEDURE - 2019-10-01 14:25:33 Rafael Patrick [facility] ENDOSCOPY [facility] RHYTHM STRIP - SCAN 2019-09-24 13:40:36 Provider, Default [facility] BASIC METABOLIC PANEL (7) 2019-09-23 04:19:00 Debbie Ortega [facility] HEPATIC FUNCTION PANEL 2019-09-23 04:19:00 Kunal Smith [facility] CBC W/PLT COUNT & AUTO 2019-09-23 04:19:00 Debbie Ortega [facility] TRANSFUSION SERVICE 2019-09-22 18:00:34 Provider, Default [facility] REPORT - SCAN [facility] TISSUE EXAM 2019-09-22 15:43:00 Robin Mack [facility] LAPAROSCOPY,CHOLECYSTECTO 2019-09-22 14:00:00 Robin Mack [facility] CBC W/PLT+MANUAL DIFF 2019-09-22 04:38:00 [facility] BASIC METABOLIC PANEL (7) 2019-09-22 04:38:00 Anahi Metz [facility] HEPATIC FUNCTION PANEL 2019-09-22 04:38:00 [facility]/INR 2019-09-22 04:38:00 [facility] WITH PLATELET COUNT + 2019-09-22 04:38:00 [facility]FF [facility] (CELLAVISION MANUAL DIFF) 2019-09-22 04:38:00 Anahi Metz [facility] T4, FREE 2019-09-21 17:36:00 Al-ZamudioCaitlin [facility] TYPE AND SCREEN, 2019-09-21 17:36:00 Isaías [facility] AUTOMATED [facility] HEPATIC FUNCTION PANEL 2019-09-21 05:20:00 Isaías [facility] BASIC METABOLIC PANEL (7) 2019-09-21 05:20:00 Stas Parada [facility] TRANSFUSION SERVICE 2019-09-20 18:01:24 Provider, Default [facility] REPORT - SCAN Scanning [facility] T4, FREE 2019-09-20 05:23:00 Isabella, Ana [facility] IRON, TIBC, % SAT. 2019-09-20 05:23:00 Stas Parada [facility] (WITHOUT FERRITIN) Medical Cente r FERRITIN 2019-09-20 05:23:00 JaysonStas [facility] CBC (HEMOGRAM ONLY) 2019-09-20 05:23:00 Jayson WilliammarcellaBetsey [facility] COMPREHENSIVE METABOLIC 2019-09-20 05:23:00 Stas Parada [facility] TRANSFUSION SERVICE 2019-09-19 18:01:56 Provider, Default [facility] REPORT - SCAN Scanning [facility] XR CHEST 1 VIEW 2019-09-19 15:49:00 JaysonStas [facility] PORTABLE/BEDSIDE Medical Center CBC (HEMOGRAM ONLY) 2019-09-19 04:34:00 JaysonStas [facility] BASIC METABOLIC PANEL (7) 2019-09-19 04:33:00 JaysonRejiBetsey I [facility] HEPATIC FUNCTION PANEL 2019-09-19 04:33:[address] [facility] S [facility] ABORH, MANUAL 2019-09-19 04:33:00 Jo Ann Chavira [facility] [place] ERCP 2019-09-18 18:10:00 Easton Murry [facility] ERCP,PANCREATIC STENT 2019-09-18 15:00:00 Rafael Patrick [facility] PROCEDURE W/ C-ARM 2019-09-18 15:00:00 Raafel Patrick [facility] ERCP,PAPILLOTOMY 2019-09-18 15:00:00 Rafael Patrick [facility] ERCP,BALLOON SWEEPING 2019-09-18 15:00:00 Rafael Patrick [place] [facility] ECG 12-LEAD 2019-09-18 12:01:19 Stas Parada [facility] BASIC METABOLIC PANEL (7) 2019-09-18 05:25:00 William ParadaOralia SNEED I [facility] HEPATIC FUNCTION PANEL 2019-09-18 05:25:00 William [facility] TSH/FREE T4 IF INDICATED 2019-09-18 05:25:00 [facility] T4, FREE 2019-09-18 05:25:00 Jayson [facility] TYPE AND SCREEN, 2019-09-18 05:25:00 Easton Murry [facility] CBC W/PLT COUNT & AUTO 2019-09-18 05:25:00 [facility] SARS-COV2/RT-PCR ([facility] & 2019-09-18 00:57:00 Mason Murry [facility] REF LABS) [facility] SCREEN, URINE 2019-09-18 00:14:00 William ParadaBetsey [facility] CBC (HEMOGRAM ONLY) 2019-09-17 17:39:00 William ParadaBetsey [facility] COMPREHENSIVE METABOLIC 2019-09-17 17:39:00 Jayson [facility] Encounters Start End Encounter Admission Attending Care Care Encounter Source Date/Time Date/Time Type Type Clinicians Facility Department ID 2018-10-03 2018-10-03 Orders Doctor CLAYTON [id number] 00:00:00 00:00:00 Only Unassigned, ABRIL [id number] [place] [facility] [id number] 2018-09-16 2018-09-16 Emergency Zarate, [facility] [id number] 08:27:28 11:43:00 Georges Finnegan [id number] [place] [id number] [place] [id number] Results Test Description Test Time Test Comments Results Result Comments Source Tissue Exam 2019-09-26 09:38:00 Test Item Value Reference Range Interpretation Comme nts Case Report (test code = 104) Surgical Pathology Report Case: [id number] Authorizing Provider: Robin Mack MD Collected: 09/22/2019 03:43 PM Ordering Location: [facility] Received: 09/22/2019 06:13 PM SERVICES Pathologist: Elio Cox MD Specimen: Gallbladder DIAGNOSIS (test code = 3220) j5inrZXyDADzs0tfUEDesFLhXwVyVsEwSbFsHe pc xLZuMSulzeMyCKncn5XmQ9MeZxJoOVsooyRjCEBz EwhknrakODWrGAI7wlQsJLKkOEjsMXDiZPqnOr4j qSTrxNuoXyRxLXRza8qbupROrqkmkCh6zMsyI43b j8N3VfmyW7xrJBEmHPIaE2BmKI0cKIMnUlz4IWF6 ZNZ5VNIwFDKrR2WsVA6iQFNjwKCjMNc0e8bszOth VGUrFNR5f5zvDVbysqWjOF3koa2skSc2d7zzbrQz HYOvSNZrfUJABMDfF0OczZusJs4kuWc2sWayXivv DKN9Ztd1XJ2qey95ugj1iSraRYQdgtyeBsZ2QVmg GESvlgsqDJl4QXxnRDVdiBdmOQveEBFyeprvKJnu TFVdiZfbDHryMSZmAmpbQRscZWMiYTJ4GAesu607 WSO3CAqho7zgo5ouvOZfGxk3WRTsIyMiRfreDAhe p7Qrk5hrYNDnwy4xMNL0jMBdkKoao4G4qXKkMYLu fBEepqFdMFAbFmO5VBgcYP5ows47NGTeBKG6zw0t dBFpuRqcrtGhmRIoLDamA5IpGWPap018MHOxU5Vl OMJco5G0tzErUuAiEDOhgXG8sjO6ROFhMQn6hZTi nvD2ssYuzWRzJ9auyF49EmVrwEHyL3QzlR43DvEp kOJfC9CtfZ44AkMkxOFtJ7MzpX36DaDguSMyUICo aFBaNo0ocRKhsTRrl4VuqQRuDWggR77et430GQNk ucKyX3emsSIjvdjwlVKvfegbLXsdpyB0UHYvHQFx YWluXGYwXGZzMjBcbGFuZzEwMzNcaGljaFxmMFxk MlYyPRChTFhwJ0rwJyIlOdZtKAESVmWOMMvVRrkJ LVXGGuwrM0cQRPAYRQKVYTBZU38POfiiQKAbXJ1s BFDIGa0NAZVcI0yIVYCTVXULFTOXBrBfqUWmFLNn WJNAIZnVVTuMJLKIV5XbTItLAJkSA3bEVJ3KFG9R TDeIGnXUR9jajXRsJWDdwu09VEA6EnHhi3X5MJL8 RYJqLXCvh0goWRCbvHUzAbOoZaTwKvSvJnrenVKj VUYsLiOlr1ltj921vMSis3wqBKZvWjV6iOIxMTMp bSRxB301DNVxWTghl9yqx4VrIWTdqQNaa6N9KYUO seizzDl8qUfzL70bd0K8TiipT9ssBHLrGDThN2Pw IW3sOHEfVni8ATG5HTB2RHTpPJEzK5CrFF1hWMNh eADiZMj7a1szhOzbAEDrAQC9u0xaKXarpeZpZW4j fz8hgZv8e8okljVlNLCiNLEhhZRFGDUoW5RvzFmv Nv6duZg0mUcdTtbuUEH4Bmh4MV9qgw69dnc6zWig PUXhgeutTtD9QPsxEECbffecZAj1FXjfQUAjzCI5 DVRtzTSkB7RyROOvEZ9nqrv1KHU7ONwwKDNrFlQ4 CRMyzOEjFCAdgYceBDdeq563EEO7PqHdYD8eB1Ph g4S0mF7foQFlEKVpgYZzYhJmDWVaxy6kmOVwCAgp d3DoFQN1guY2mFNwgHEqSFCiBvG4CUnxGH5baj20 QAZjRKQ5vp4ymDMuzLjrxqAsvIQdWRhdU0TjVUFm o564DXFnK5PmVXVbd9W8wiUqNoGdBMBffJB1axV4 TDTlFL7ntiesx2omUZdeKNmnITVmozV4hqT5NLGy oSDuR3YjqM5qCWAnCA8ojjjtu7zvDQR4XTleCIMu NYN1XhBoNOZvv7Srgpq3KnJgt2KbsKDiLKmpV23q t577ZZUyhlIxX4aqrUTnsfqhxTPnlfxnOQljguB1 FKHaYMhruivrWYDrFUlvB5bcTgJhGJZbpEegCQoc m3TpHJZsETJvOdGwzXYkTIScZxh3MLAgqUBpHTTy RdPeQ5rogmymQwUVYSSba2hdU7mzjVVDyJVsO3Ym KKijdrJzQKypDVajFTBzRLH2EG3lNNCkEGMsxf15 CPT Code(s) (test code = 3357) e0yimBCoHQWhoOXfSlMpHNSzUPQfq6ouMRYy bGFu ZyJbHpLuPiSgSsrsmCBsFZLjKhYwr2flh755pCAo j4ieUQKlVeB6rMMzJJXzrDEhK982w0daj6avvxOv eTN4FJUbHZK6VXeanjDxqmD1SAfqbFBeUqN2AEvm xyRwDAwhmnYlxiKfRrt2UBYzL012WNX4tFzht4cu KRK6HBKmZWVaVkQuEz6maBSpW309ELJvZYZHTCKh eWe8VLAgwuSaykEroXWVz027T657g1wsOKUxhsNm yMxGdoecy6qiQ060AGDdaWNhviVxGhVuBNAhdHPo cQB2CAGkJP9zqpieZtYjJI2fcxlsQpOvAM2kbfp3 JsYsCP2wpzroLjHlSRkoCIWkgswxFNBfq7Zggmsj QY7jM5Yra5L9gU6siONpICYyoWYvXbXzGDLwme4v fUNyGOkfb1FhVDZ7riO7nGXazJFmLHRbHT79Ahhp m3UaNjtyCBQ2JFUlvxYjz0Bre5jlTmMuyjGgF3no G9UrBEMkUMTaJIQwLeClinZlj0Rmw8WvaYXhoQp0 a3sjXGEcCRCpoOnqj0mxMYT0CGLiQ9N8aDOso7zo RQqrTCTvtPO1piuzRWhcXSWfyyP4hygvCKqiXXEn fSQ7qaghRVmhNVJgJhU9isjtMHcqKEUjVBL6CMcy a120TXD2DBnvRbwaLKvwLDWcsqOkcxMulEtuSQPv ODTtOEjbPOFkKJsyBAXiSLQhMmWquWuxqXukaI9r DoJdCxKqGLwdXA4mTNOxV7zroUJyEPJxDXSlW6kr CyUyuP0mkQznTCprknOvMPn9FpD4PGEuud4= CLINICAL HISTORY (test code = 3356) i4dqhWEkCKZcsLDsSxJyBCHvRVNhn2h cZGVmbGFu ShFpBqFvVoHfIvlxkJZgZWBoOxPwc2cwo936iYUx r9swQJElIoW8zEEmLGRigVEnU890i0ctb9ipbyOo jMP0FAQcSXQ7SPtpmqLyuxY8RZtdxSKzLhN5KPvt wuXtKCiowxQtcwFgIhg3QFXcS486ETI7aEzlw1kj YIM9KWBsNLCrCuAiSe8zsYDpH743VGXkHSUUAETy dYk2NTQafeKjjsWqyYFQi171Z000j4jfNDNbcdSq aNqUbszsv0hnK082LKLpeDKjnxZhFpAyWWEsrEJx dIE8QDOuEQ0mdmsjYhJlZZ2xldwxMhUnUB2ovil0 QjWuSU7klogxTuQyFMsjBVXurrxtFQXnf3Ryndlr LU0uE3Sym2T4dJ5voVBePCTbqFKzUaYpMLCzuq1x uVApHYvmk4CwSBN3bhL4bEAbqWNsSCUsIN72Ojaa o7JgNgqiUNK1JNZekcXvx3Ryu3iqEfVrndIoM7sr V7QfFRMoUAThEOZfVvUcmeHom3Lsm5FrwUFjbWr8 t8wvQKJaHICwrYouj4mqSBU7TLMlT9X8yKHzy2uz QKlyTMXbsVP5dsofXKqcEVJiriJ3zrrkZSoxEZMi xEG2ycoxQPdlJIZrPyF3qxloBElfTOVaDQI1USqg s692LWM7KSzyGifbZNhzVQDlpkRftcRrqFhfTBAx RFFlQQlaGPCjZDpzEWKaVUVmHnQcfYghoRrgsJ4q OxTjAfGgNSwaWW6eBNOgR8koaLHtPXAlIDFlU0ky UsZjhH7wsEmaAOrebaTcAVGdr2vkIA9dkYb9rSQi GBYlt0ieOB4uoW9hlIWznLSyvEZpVMGnmf2= SPECIMEN SOURCE (test code = 3377) r4fqdNGbYXMgaGKfEwLcKMOzINHnv9rw ZGVmbGFu LdNeKuGdOuYkFqpxlKAoTOQqUyWyt2qij154bCFk y8uvYAEyMmS4dWQbKCOyrMEiN370o1itl3wxrzNk eFF2QZRzBNU9FFvgweNmmrR4DYszhGLqCkK4WSvp qaQyCMvpovEikfHrQdk8XNMtI028MFP6oPnfu2yl RUS9TBVsWRCiEfNgHj8pzLLyK291XXQwKWRSTUDy aUy2STKjedEcoxQxkXXDd853A698i1mnWHVcyePp aEcOualkp9pjF583XBEpfXSnlpZgYlMnKLZxdDEy dUL2VEDsSB2xgbpiRgWaCI6enhmaFyIgBI3saxu3 JzKgIU7jyemnMrXgKVumCHHehusaHJKca5Rfbgfb RT1qS9Zvh9B7tM2zcMMlKCDucOJaWsLuFPDmhz9o iAYoRDswe6SiGUV8mgN1wGUhkQZsRFGnBT34Nvjd t2TzCzaiASJ3FPJdwrQbf4Kre1fmPiUpwxLmX4jx L3GvSLHvLNNzGCOdPmVqghLap5Gtu3OubGXngFu7 m9zpIZQzQVNrfLwbn0xkMQP6AMHrH2H4pMUnc7lq BSnvDRDstQI1zybpECuqJFIxqkA5ylnaXWqhUWQr rSJ2fvwmAMsfPQMzBkU1ocvbSFrcJELpXSR6EHyl j070VSY6EKbmSpkpFGqcVMOgrzSickPjmNtwNKNb HPUeWCzwSZSzELdmJENoKBEaWiHyeYbadFlieY5h HfCrCjZkUSysHL7vDLYjK4ydsZOhSZThAXVeR1ue AuWhwR7jeLeoQZsqrxSfOKbwdKmpaXXvNIUmIGsh YXJ9 GROSS DESCRIPTION (test code = 3366) d1qewJAcRXIwxWTgRvLbDQKeSHThu2 lcZGVmbGFu [file] sUW9NE2cabyfegRxmdNFMP6tADXiQGxiVDPojh8= MICROSCOPIC DESCRIPTION (test code = v7rqdYSePCRzsJBmHkJuVNLqBPFnh3 [place] [address]) YyXqLrRjHiDaUisjfIZuQMUsUbFid7gwv291vCNk s6odJVFoSmF6kACpRIVmpDCmW423VELtYYhwh4tq v7DuPNNmzMGxp6F0LCGDoymiwVe3qIqcL61ut7L7 TyltT3shAJQjQFviQOOuRHytsSTcWAL4RABmQEG9 DIrtrgSnjrD7VVcetHAsPkO1MVs0e1zqwJedQHRm OGU3b6hnQUzlitAmCX4phb6ytFu3s5ndirYpSDNv LXUmsIVUQBTxD5NodBupSe5axRz1qPokMtnbBNG1 Sre1PD3gxm67gxt2qYphUFKpzrfcSwV3FXkzPTEf ntimQNc1JCttXKXiuMdcPZpfHVWrcjzcSNeyBVKc qLxkIMruJQTcQvhrODofTXWySCN1DSetg980DQU2 AMsla2pmj5efcIOtWwf9UHMdArVpGckpCQpoo4Ja d0ucTXMpnc4pOIR9bUBvyGlbh0D9kDDsBOSxiQJa lwZpAIBecm06sPBnwZGsiBXldy9afkKikCZijOCa MEQ4zQDhhzBoRCJsvGEvJEEeVE1xdBMkMMMqaL2c ifcwFYYyBrPkqadlRGQuuNhlelQnHp4baMbuFBE6 XIydB9htoT1jKeP1WSpvT6hjdH7sQTj9ZApgqLQ8 DCEadR7jTS1ibtkwl0skHiIbWH3lntqfp2yaHcKv BQ0lyzx9m7hcAuMzNP4oxqpez2emWtBcGArhCKXc bdpvABJvj5TgibchIIYow7WdU7PivLwjH06ozEwo T03mSSIbuXvshK7joFvlsE2lNuVdCyKhWBzxxStl bGFpblxmMFxmczIwXHBsYWluXGYxXGZzMjAgUGVy Dv4prHTsLyqnOCLdeVTseV== [facility] [id number] 09:38:00Surgical Pathology Report Case: [id number] Authorizing Provider: Robin Mack MD Collected: 09/22/2019 03:43 PM Ordering Location: [facility] Received: 09/22/2019 06:13 PM SERVICES Pathologist: Elio Cox MD Specimen: Gallbladder A. GALLBLADDER, CHOLECYSTECTOMY: - CHRONIC CHOLECYSTITIS - NEGATIVE FOR DYSPLASIA OR MALIGNANCY Signing Pathologist Direct Phone Line: [phone] signed by Elio Cox MD on 09/26/2019 at 9:38 [id number], choledocholithiasis.Gallbladder Received in formalin labeled with the patient's name, accession number and "gallbladder" is a 6.7 x 2.1 x 1.5 cm intact gallbladder with a 0.2 cm in length x 0.2 cm in diameter attached cystic duct. The serosa is martin-yellow, smooth and hyperemic. The specimen is opened to reveal approximately 4 mL of yellow sludge-like bile. Calculi are notidentified. The mucosa is martin and trabeculated. The wall measures 0.2 cm thick. Gis Engineer sections are submitted in A1-A2, with the inked cystic duct margin in A1. PA/ew Performed.Basic Metabolic [id number] 05:15:00 Test Item Value Reference Range Interpretation Comments Sodium (test code = 138 meq/L 589-082 3116-2) Potassium (test code = 4.4 meq/L 3.5-5.1 2823-3) Chloride (test code = 106 meq/L 98-107 2075-0) CO2 (test code = 25 meq/L 22-29 8-9) BUN (test code = 5 mg/dL 7-21 L 3094-0) Creatinine (test code 0.79 mg/dL 0.57-1.25 = 2160-0) Glucose (test code = 109 mg/dL 70-105 H 2345-7) Calcium (test code = 9.5 mg/dL 8.4-10.2 88626-9) EGFR (test code = 79 mL/min/1.73 sq m [place] [address]-0) NOT ACCURATE CREATININE CLEARANCE IN PREDICTING GLOMERULAR FILTRATION RATE . ESTIMATED GFR I S NOT APPLICABLE FOR DIALYSIS PATIENTS. LUL (test code = LUL) Handle Maker ID - EDASI Lab Interpretation Abnormal (test code = 05744-6) [facility] [id number] 05:15:00 Test Item Value Reference Range Interpretation Comments Protein, Total (test code 6.5 6.0- 8.3 gm/dL = 2885-2) Albumin (test code = 4.1 g/dL 3.5-5 22551-8) Total Bilirubin (test code 0.5 mg/dL 0.2-1.2 = 1974-2) Bilirubin, Direct (test 0.3 mg/dL 0.1-0.5 code = 1967-7) Alkaline Phosphatase (test 105 U/L 40-150 code = 6768-6) AST (test code = 1920-8) 27 U/L 5-34 ALT (test code = 1742-6) 95 U/L 6-55 H LUL (test code = LUL) Handle Maker ID - EDASI Lab Interpretation (test Abnormal code = 20321-6) [facility] [id number] 05:15:00 Test Item Value Reference Range Interpretation Comments TOTAL PROTEIN (BEAKER) (test code = 6.5 gm/dL 6.0-8.3 770) ALBUMIN (BEAKER) (test code = 1145) 4.1 g/dL 3.5-5.0 BILIRUBIN TOTAL (BEAKER) (test code 0.5 mg/dL 0.2-1.2 = 377) BILIRUBIN DIRECT (BEAKER) (test 0.3 mg/dL 0.1-0.5 code = 706) ALKALINE PHOSPHATASE (BEAKER) (test 105 U/L 40-150 code = 346) AST (SGOT) (BEAKER) (test code = 27 U/L 5-34 353) ALT (SGPT) (BEAKER) (test code = 95 U/L 6-55 H 347) Handle Maker ID - EDASIBASIC METABOLIC [id number] 05:15:00 Test Item Value Reference Range Interpretation Comments SODIUM (BEAKER) 138 meq/L 136-145 (test code = 381) POTASSIUM (BEAKER) 4.4 meq/L 3.5-5.1 (test code = 379) CHLORIDE (BEAKER) 106 meq/L 98-107 (test code = 382) CO2 (BEAKER) (test 25 meq/L 22-29 code = 355) BLOOD UREA NITROGEN 5 mg/dL 7-21 L (BEAKER) (test code = 354) CREATININE (BEAKER) 0.79 mg/dL 0.57-1.25 (test code = 358) GLUCOSE RANDOM 109 mg/dL 70-105 H (BEAKER) (test code = 652) CALCIUM (BEAKER) 9.5 mg/dL 8.4-10.2 (test code = 697) EGFR (BEAKER) (test 79 mL/min/1.73 ESTIMA ADOLPH GFR IS code = 1092) sq m NOT ACCURATE CREATININE CLEARANCE IN PREDICTING GLOMERULAR FILTRATION RATE . ESTIMATED GFR I S NOT APPLICABLE FOR DIALYSIS PATIEN TS. Handle Maker ID - EDASICBC with platelet count + automated [id number] 04:51:00 Test Item Value Reference Range Interpretation Comments WBC (test code = 6690-2) 9.0 3.5- 10.5 K/L RBC (test code = 789-8) 4.69 3.93- 5.22 M/L MCHC (test code = 786-4) 29.4 32.2- 35.5 GM/DL L Hematocrit (test code = 4544-3) 38.8 % 34.1-44.9 MCV (test code = 787-2) 82.7 fL 79.4-94.8 MCH (test code = 785-6) 24.3 pg 25.6-32.2 L RDW (test code = 788-0) 18.0 % 11.7-14.4 H Platelets (test code = 777-3) 180 150- 450 K/CU MM MPV (test code = 75348-2) 10.4 fL 9.4-12.3 nRBC (test code = 413) 0 0- 0 /100 WBC % Neutros (test code = 429) 79 % % Lymphs (test code = 430) 12 % % Monos (test code = 431) 7 % % Eos (test code = 432) 0 % % Baso (test code = 437) 1 % # Neutros (test code = 670) 7.11 1.56- 6.13 K/L H # Lymphs (test code = 414) 1.10 1.18- 3.74 K/L L # Monos (test code = 415) 0.65 0.24- 0.36 K/L H # Eos (test code = 416) 0.03 0.04- 0.36 K/L L # Baso (test code = 417) 0.08 0.01- 0.08 K/L Immature Granulocytes-Relative 0 % 0-1 (test code = 2801) Lab Interpretation (test code = Abnormal 69402-1) [facility] W/PLT COUNT & AUTO [id number] 04:51:00 Test Item Value Reference Range Interpretation Comments WHITE BLOOD CELL COUNT (BEAKER) 9.0 K/ L 3.5-10.5 (test code = 775) RED BLOOD CELL COUNT (BEAKER) 4.69 M/ L 3.93-5.22 (test code = 761) HEMOGLOBIN (BEAKER) (test code = 11.4 GM/DL 11.2-15.7 410) HEMATOCRIT (BEAKER) (test code = 38.8 % 34.1-44.9 411) MEAN CORPUSCULAR VOLUME (BEAKER) 82.7 fL 79.4-94.8 (test code = 753) MEAN CORPUSCULAR HEMOGLOBIN 24.3 pg 25.6-32.2 L (BEAKER) (test code = 751) MEAN CORPUSCULAR HEMOGLOBIN CONC 29.4 GM/DL 32.2-35.5 L (BEAKER) (test code = 752) RED CELL DISTRIBUTION WIDTH 18.0 % 11.7-14.4 H (BEAKER) (test code = 412) PLATELET COUNT (BEAKER) (test 180 K/CU MM 150-450 code = 756) MEAN PLATELET VOLUME (BEAKER) 10.4 fL 9.4-12.3 (test code = 754) NUCLEATED RED BLOOD CELLS 0 /100 WBC 0-0 (BEAKER) (test code = 413) NEUTROPHILS RELATIVE PERCENT 79 % (BEAKER) (test code = 429) LYMPHOCYTES RELATIVE PERCENT 12 % (BEAKER) (test code = 430) MONOCYTES RELATIVE PERCENT 7 % (BEAKER) (test code = 431) EOSINOPHILS RELATIVE PERCENT 0 % (BEAKER) (test code = 432) BASOPHILS RELATIVE PERCENT 1 % (BEAKER) (test code = 437) NEUTROPHILS ABSOLUTE COUNT 7.11 K/ L 1.56-6.13 H (BEAKER) (test code = 670) LYMPHOCYTES ABSOLUTE COUNT 1.10 K/ L 1.18-3.74 L (BEAKER) (test code = 414) MONOCYTES ABSOLUTE COUNT (BEAKER) 0.65 K/ L 0.24-0.36 H (test code = 415) EOSINOPHILS ABSOLUTE COUNT 0.03 K/ L 0.04-0.36 L (BEAKER) (test code = 416) BASOPHILS ABSOLUTE COUNT (BEAKER) 0.08 K/ L 0.01-0.08 (test code = 417) IMMATURE GRANULOCYTES-RELATIVE 0 % 0-1 PERCENT (BEAKER) (test code = 2801) Manual [id number] 10:54:00 Test Item Value Reference Range Interpretation Comments % Neutros (test code = 57 % 6) % Lymphs (test code = 29 % 7) % Monos (test code = 7 % 8) % Eos (test code = 2819) 1 % % Bands (test code = 6 % 0-10 2825) % Atypical Lymphs (test 2 % 0-0 H code = 2829) # Neutros (test code = 2.85 K/ul 1.56-6.13 2830) # Lymphs (test code = 1.45 K/ul 1.18-3.74 2831) # Monos (test code = 0.35 K/uL 0.24-0.36 2832) # Eos (test code = 2834) 0.05 K/uL 0.04-0.36 # Bands (test code = 0.30 K/uL 0-0.8 2840) # Atypical Lymphs (test 0.10 K/uL 0-0 H code = 2858) Total Counted (test code 100 = 1351) RBC Morphology (test Normal code = 762) WBC Morphology (test Normal code = 487) Platelet Morphology Normal (test code = 486) Artifact (test code = Present 3432) Platelet Conc (test code Adequate = 3438) LUL (test code = LUL) Handle Maker ID - Marleni OverholtUser comments: Slide comments: Lab Interpretation (test Abnormal code = 84129-6) [facility](CELLAVISION MANUAL DIFF)2019-09-22 10:54:00 Test Item Value Reference Range Interpretation Comments NEUTROPHILS - REL 57 % (CELLAVISION)(BEAKER) (test code = 2816) LYMPHOCYTES - REL 29 % (CELLAVISION)(BEAKER) (test code = 2817) MONOCYTES - REL 7 % (CELLAVISION)(BEAKER) (test code = 2818) EOSINOPHILS - REL 1 % (CELLAVISION)(BEAKER) (test code = 2819) BANDS - REL (CELLAVISION)(BEAKER) 6 % 0-10 (test code = 2826) ATYPICAL LYMPHOCYTES - REL 2 % 0-0 H (CELLAVISION)(BEAKER) (test code = 2829) NEUTROPHILS - ABS 2.85 K/ul 1.56-6.13 (CELLAVISION)(BEAKER) (test code = 2830) LYMPHOCYTES - ABS 1.45 K/ul 1.18-3.74 (CELLAVISION)(BEAKER) (test code = 2831) MONOCYTES - ABS 0.35 K/uL 0.24-0.36 (CELLAVISION)(BEAKER) (test code = 2832) EOSINOPHILS - ABS 0.05 K/uL 0.04-0.36 (CELLAVISION)(BEAKER) (test code = 2834) BANDS - ABS (CELLAVISION)(BEAKER) 0.30 K/uL 0.00-0.80 (test code = 2840) ATYPICAL LYMPHOCYTES - ABS 0.10 K/uL 0.00-0.00 H (CELLAVISION)(BEAKER) (test code = 2858) TOTAL COUNTED (BEAKER) (test code = 100 1351) RBC MORPHOLOGY (BEAKER) (test code Normal = 762) WBC MORPHOLOGY (BEAKER) (test code Normal = 487) PLT MORPHOLOGY (BEAKER) (test code Normal = 486) ARTIFACT (CELLAVISION)(BEAKER) Present (test code = 3432) PLATELET CONCENTRATION Adequate (CELLAVISION)(BEAKER) (test code = 3438) Handle Maker ID - Marleni OverholtUser comments: Slide comments:HEPATIC FUNCTION PANEL 2019-09-22 06:01:00 Test Item Value Reference Range Interpretation Comments TOTAL PROTEIN (BEAKER) (test code = 5.8 gm/dL 6.0-8.3 L 770) ALBUMIN (BEAKER) (test code = 1145) 3.6 g/dL 3.5-5.0 BILIRUBIN TOTAL (BEAKER) (test code 0.5 mg/dL 0.2-1.2 = 377) BILIRUBIN DIRECT (BEAKER) (test 0.2 mg/dL 0.1-0.5 code = 706) ALKALINE PHOSPHATASE (BEAKER) (test 98 U/L 40-150 code = 346) AST (SGOT) (BEAKER) (test code = 19 U/L 5-34 353) ALT (SGPT) (BEAKER) (test code = 102 U/L 6-55 H 347) Handle Maker ID - EDASIBASIC METABOLIC [id number] 06:01:00 Test Item Value Reference Range Interpretation Comments SODIUM (BEAKER) 140 meq/L 136-145 (test code = 381) POTASSIUM (BEAKER) 3.5 meq/L 3.5-5.1 (test code = 379) CHLORIDE (BEAKER) 108 meq/L 98-107 H (test code = 382) CO2 (BEAKER) (test 23 meq/L 22-29 code = 355) BLOOD UREA NITROGEN 5 mg/dL 7-21 L (BEAKER) (test code = 354) CREATININE (BEAKER) 0.77 mg/dL 0.57-1.25 (test code = 358) GLUCOSE RANDOM 83 mg/dL 70-105 (BEAKER) (test code = 652) CALCIUM (BEAKER) 8.7 mg/dL 8.4-10.2 (test code = 697) EGFR (BEAKER) (test 81 mL/min/1.73 ESTIMA ADOLPH GFR IS code = 1092) sq m NOT ACCURATE CREATININE CLEARANCE IN PREDICTING GLOMERULAR FILTRATION RATE . ESTIMATED GFR I S NOT APPLICABLE FOR DIALYSIS PATIEN TS. Handle Maker ID - EDASIProthrombin time/[id number] 05:46:00 Test Item Value Reference Range Interpretation Comments Protime (test code = 13.8 11.9- 14.2 5902-2) seconds INR (test code = 1.09 <=5.90 6301-6) LUL (test code = LUL) Effective 07/03/2018: PT Reference Range ChangeNew: 11.9-14.2 Previous: 11.7-14.7 RECOMMENDED COUMADIN/WARFARIN INR THERAPY RANGESSTANDARD DOSE: 2.0-3.0 Includes: PROPHYLAXIS for venous thrombosis, systemic embolization; TREATMENT for venous thrombosis and/or pulmonary embolus.HIGH RISK: Target INR is 2.5-3.5 for patients wiht mechanical heart valves. Lab Interpretation Normal (test code = 29644-1) [facility]PROT[facility]OM[facility]/[id number] 05:46:00 Test Item Value Reference Range Interpretation Comments PROTIME (BEAKER) (test code = 13.8 seconds 11.9-14.2 759) INR (BEAKER) (test code = 370) 1.09 <=5.90 Effective 07/03/2018: PT Reference Range ChangeNew: 11.9-14.2 Previous: 11.7- 14.7RECOMMENDED COUMADIN/WARFARIN INR THERAPY RANGESSTANDARD DOSE: 2.0-3.0 Includes: PROPHYLAXIS for venous thrombosis, systemic embolization; TREATMENT for venous thrombosis and/or pulmonary embolus.HIGH RISK: Target INR is2.5-3.5 for patients wiht mechanical heart valves.CBC with platelet count + manual diff 2019-09-22 05:29:00 Test Item Value Reference Range Interpretation Comments WBC (test code = 6690-2) 5.0 3.5- 10.5 K/L RBC (test code = 789-8) 4.26 3.93- 5.22 M/L MCHC (test code = 786-4) 30.0 32.2- 35.5 GM/DL L Hematocrit (test code = 4544-3) 35.3 % 34.1-44.9 MCV (test code = 787-2) 82.9 fL 79.4-94.8 MCH (test code = 785-6) 24.9 pg 25.6-32.2 L RDW (test code = 788-0) 17.7 % 11.7-14.4 H Platelets (test code = 777-3) 179 150- 450 K/CU MM MPV (test code = 90341-3) 11.3 fL 9.4-12.3 nRBC (test code = 413) 0 0- 0 /100 WBC Lab Interpretation (test code = Abnormal 91334-7) [facility] WITH PLATELET COUNT + MANUAL [id number] 05:29:00 Test Item Value Reference Range Interpretation Comments WHITE BLOOD CELL COUNT (BEAKER) 5.0 K/ L 3.5-10.5 (test code = 775) RED BLOOD CELL COUNT (BEAKER) 4.26 M/ L 3.93-5.22 (test code = 761) HEMOGLOBIN (BEAKER) (test code = 10.6 GM/DL 11.2-15.7 L 410) HEMATOCRIT (BEAKER) (test code = 35.3 % 34.1-44.9 411) MEAN CORPUSCULAR VOLUME (BEAKER) 82.9 fL 79.4-94.8 (test code = 753) MEAN CORPUSCULAR HEMOGLOBIN 24.9 pg 25.6-32.2 L (BEAKER) (test code = 751) MEAN CORPUSCULAR HEMOGLOBIN CONC 30.0 GM/DL 32.2-35.5 L (BEAKER) (test code = 752) RED CELL DISTRIBUTION WIDTH 17.7 % 11.7-14.4 H (BEAKER) (test code = 412) PLATELET COUNT (BEAKER) (test 179 K/CU MM 150-450 code = 756) MEAN PLATELET VOLUME (BEAKER) 11.3 fL 9.4-12.3 (test code = 754) NUCLEATED RED BLOOD CELLS 0 /100 WBC 0-0 (BEAKER) (test code = 413) Type and screen, [id number] 19:19:00 Test Item Value Reference Range Interpretation Comments ABO/RH AUTOMATED (BEAKER) (test O POSITIVE code = 2260) Ab Scrn (test code = 890-4) NEGATIVE [facility]4, [id number] 18:30:00 Test Item Value Reference Range Interpretation Comments Free T4 (test code = 3024-7) 0.67 ng/dL 0.7-1.48 L LUL (test code = LUL) Handle Maker ID - DB Lab Interpretation (test Abnormal code = 11039-9) [facility], [id number] 18:30:00 Test Item Value Reference Range Interpretation Comments FREE T4 (BEAKER) (test code = 655) 0.67 ng/dL 0.70-1.48 L Handle Maker ID - DBHEPATIC FUNCTION [id number] 07:34:00 Test Item Value Reference Range Interpretation Comments TOTAL PROTEIN (BEAKER) (test code = 5.3 gm/dL 6.0-8.3 L 770) ALBUMIN (BEAKER) (test code = 1145) 3.3 g/dL 3.5-5.0 L BILIRUBIN TOTAL (BEAKER) (test code 0.4 mg/dL 0.2-1.2 = 377) BILIRUBIN DIRECT (BEAKER) (test 0.3 mg/dL 0.1-0.5 code = 706) ALKALINE PHOSPHATASE (BEAKER) (test 99 U/L 40-150 code = 346) AST (SGOT) (BEAKER) (test code = 20 U/L 5-34 353) ALT (SGPT) (BEAKER) (test code = 124 U/L 6-55 H 347) Handle Maker ID - PIAYA LBASIC METABOLIC [id number] 07:34:00 Test Item Value Reference Range Interpretation Comments SODIUM (BEAKER) 138 meq/L 136-145 (test code = 381) POTASSIUM (BEAKER) 3.4 meq/L 3.5-5.1 L (test code = 379) CHLORIDE (BEAKER) 109 meq/L 98-107 H (test code = 382) CO2 (BEAKER) (test 20 meq/L 22-29 L code = 355) BLOOD UREA NITROGEN 5 mg/dL 7-21 L (BEAKER) (test code = 354) CREATININE (BEAKER) 0.82 mg/dL 0.57-1.25 (test code = 358) GLUCOSE RANDOM 108 mg/dL 70-105 H (BEAKER) (test code = 652) CALCIUM (BEAKER) 8.0 mg/dL 8.4-10.2 L (test code = 697) EGFR (BEAKER) (test 75 mL/min/1.73 ESTIMA ADOLPH GFR IS code = 1092) sq m NOT ACCURATE CREATININE CLEARANCE IN PREDICTING GLOMERULAR FILTRATION RATE . ESTIMATED GFR I S NOT APPLICABLE FOR DIALYSIS PATIEN TS. Handle Maker ID - PIAYA LComprehensive metabolic [id number] 07:34:00 Test Item Value Reference Range Interpretation Comments Protein, Total (test 5.3 6.0- 8.3 gm/dL L code = 2885-2) Albumin (test code = 3.3 g/dL 3.5-5 L 11789-0) Alkaline Phosphatase 122 U/L 40-150 (test code = 6768-6) Total Bilirubin (test 0.5 mg/dL 0.2-1.2 code = 1975-2) Sodium (test code = 138 meq/L 618-341 6606-2) Potassium (test code = 3.8 meq/L 3.5-5.1 2823-3) Chloride (test code = 112 meq/L 98-107 H 2075-0) CO2 (test code = 19 meq/L 22-29 L 2028-9) BUN (test code = 10 mg/dL 7-21 3094-0) Creatinine (test code 0.74 mg/dL 0.57-1.25 = 2160-0) Glucose (test code = 74 mg/dL 70-105 2345-7) Calcium (test code = 8.0 mg/dL 8.4-10.2 L 54899-2) AST (test code = 33 U/L 5-34 1920-8) ALT (test code = 179 U/L 6-55 H 1742-6) EGFR (test code = 85 mL/min/1.73 [place] [address]-7) NOT ACCURATE CREATININE CLEARANCE IN PREDICTING GLOMERULAR FILTRATION RATE . ESTIMATED GFR I S NOT APPLICABLE FOR DIALYSIS PATIENTS. LUL (test code = LUL) Handle Maker ID - LORELEI M Lab Interpretation Abnormal (test code = 79849-1) [facility] HospitalCOMPREHENSIVE METABOLIC [id number] 07:34:00 Test Item Value Reference Range Interpretation Comments TOTAL PROTEIN 5.3 gm/dL 6.0-8.3 L (BEAKER) (test code = 770) ALBUMIN (BEAKER) 3.3 g/dL 3.5-5.0 L (test code = 1145) ALKALINE PHOSPHATASE 122 U/L 40-150 (BEAKER) (test code = 346) BILIRUBIN TOTAL 0.5 mg/dL 0.2-1.2 (BEAKER) (test code = 377) SODIUM (BEAKER) (test 138 meq/L 136-145 code = 381) POTASSIUM (BEAKER) 3.8 meq/L 3.5-5.1 (test code = 379) CHLORIDE (BEAKER) 112 meq/L 98-107 H (test code = 382) CO2 (BEAKER) (test 19 meq/L 22-29 L code = 355) BLOOD UREA NITROGEN 10 mg/dL 7-21 (BEAKER) (test code = 354) CREATININE (BEAKER) 0.74 mg/dL 0.57-1.25 (test code = 358) GLUCOSE RANDOM 74 mg/dL 70-105 (BEAKER) (test code = 652) CALCIUM (BEAKER) 8.0 mg/dL 8.4-10.2 L (test code = 697) AST (SGOT) (BEAKER) 33 U/L 5-34 (test code = 353) ALT (SGPT) (BEAKER) 179 U/L 6-55 H (test code = 347) EGFR (BEAKER) (test 85 mL/min/1.73 ESTIMA ADOLPH GFR IS code = 1092) sq m NOT ACCURATE CREATININE CLEARANCE IN PREDICTING GLOMERULAR FILTRATION RATE . ESTIMATED GFR I S NOT APPLICABLE FOR DIALYSIS PATIEN TS. Handle Maker SANTIAGO MOSELEY [id number] 07:12:00 Test Item Value Reference Range Interpretation Comments Ferritin (test code = 8.29 ng/mL 5-275 2276-4) LUL (test code = LUL) Handle Maker SANTIAGO Sanderson LORELEI Mercedes Lab Interpretation (test Normal code = 09990-6) [facility], [id number] 07:12:00 Test Item Value Reference Range Interpretation Comments FREE T4 (BEAKER) (test code = 655) 0.49 ng/dL 0.70-1.48 L Handle Maker ID Maria E MOSELEY [id number] 07:12:00 Test Item Value Reference Range Interpretation Comments FERRITIN (BEAKER) (test code = 8.29 ng/mL 5.00-275.00 361) Handle Maker ID - LORELEI Rupa, TIBC, % sat. (without ferritin)2019-09-20 06:49:00 Test Item Value Reference Range Interpretation Comments Iron (test code = 2498-4) 20.0 ug/dL 40-160 L TIBC (test code = 2500-7) 305 ug/dL 250-450 Iron % Saturation (test 7 % 20-55 L code = 2502-3) LUL (test code = LUL) Handle Maker ID Maria E MOSELEY M Lab Interpretation (test Abnormal code = 96429-5) [facility] % SAT. (WITHOUT FERRITIN)2019-09-20 06:49:00 Test Item Value Reference Range Interpretation Comments IRON (BEAKER) (test code = 547) 20.0 ug/dL 40.0-160.0 L TOTAL IRON BINDING CAPACITY 305 ug/dL 250-450 (BEAKER) (test code = 769) IRON % SATURATION (2) (BEAKER) 7 % 20-55 L (test code = 2590) Handle Maker ID Maria E MOSELEY [facility] (Hemogram only)2019-09-20 06:23:00 Test Item Value Reference Range Interpretation Comments WBC (test code = 6690-2) 6.0 3.5- 10.5 K/L RBC (test code = 789-8) 4.27 3.93- 5.22 M/L MCHC (test code = 786-4) 29.8 32.2- 35.5 GM/DL L Hematocrit (test code = 4544-3) 34.9 % 34.1-44.9 MCV (test code = 787-2) 81.7 fL 79.4-94.8 MCH (test code = 785-6) 24.4 pg 25.6-32.2 L RDW (test code = 788-0) 17.3 % 11.7-14.4 H Platelets (test code = 777-3) 184 150- 450 K/CU MM MPV (test code = 01097-1) 10.7 fL 9.4-12.3 nRBC (test code = 413) 0 0- 0 /100 WBC Lab Interpretation (test code = Abnormal 48970-0) [facility] (HEMOGRAM ONLY)2019-09-20 06:23:00 Test Item Value Reference Range Interpretation Comments WHITE BLOOD CELL COUNT (BEAKER) 6.0 K/ L 3.5-10.5 (test code = 775) RED BLOOD CELL COUNT (BEAKER) 4.27 M/ L 3.93-5.22 (test code = 761) HEMOGLOBIN (BEAKER) (test code = 10.4 GM/DL 11.2-15.7 L 410) HEMATOCRIT (BEAKER) (test code = 34.9 % 34.1-44.9 411) MEAN CORPUSCULAR VOLUME (BEAKER) 81.7 fL 79.4-94.8 (test code = 753) MEAN CORPUSCULAR HEMOGLOBIN 24.4 pg 25.6-32.2 L (BEAKER) (test code = 751) MEAN CORPUSCULAR HEMOGLOBIN CONC 29.8 GM/DL 32.2-35.5 L (BEAKER) (test code = 752) RED CELL DISTRIBUTION WIDTH 17.3 % 11.7-14.4 H (BEAKER) (test code = 412) PLATELET COUNT (BEAKER) (test 184 K/CU MM 150-450 code = 756) MEAN PLATELET VOLUME (BEAKER) 10.7 fL 9.4-12.3 (test code = 754) NUCLEATED RED BLOOD CELLS 0 /100 WBC 0-0 (BEAKER) (test code = 413) RAD, CHEST, 1 VIEW, NON [id number] 16:03:00Reason for exam:->pre-op screening with h/o tobaccoShould this be performed at the bedside?->YesFINAL REPORT TECHNIQUE: Frontal view of the chest. INDICATION: pre-op screening with h/o tobacco COMPARISON:None DISCUSSION:Limited evaluation due to portable technique. Lines and hardware: NoneHeart and mediastinum: UnremarkableLungs and pleura: No focal airspace consolidation.No pleural effusion. No pneumothorax.Soft tissues and bones: No acute abnormality. IMPRESSION:Negative for acute intrathoracic process. Signed: Kim Mcneill MDReport Verified Date/Time: 09/19/2019 16:03:48 Reading Location: [facility] B1 C013T Transitional Reading Room XR chest 1 view portable / [id number] 16:03:00 Interface, External Ris In - 09/19/2019 4:06 PM CDTFINAL REPORT TECHNIQUE: Frontal view of the chest. INDICATION: pre-op screening with h/o tobacco COMPARISON:None DISCUSSION:Limited evaluation due to portable technique. Lines and hardware: NoneHeart and mediastinum: UnremarkableLungs and pleura: No focal airspace consolidation. No pleural effusion. No pneumothorax.Soft tissues and bones: No acute abnormality. IMPRESSION:Negative for acute intrathoracic process. Signed: Kim Mcneill MDReport Verified Date/Time: 09/19/2019 16:03:48 Reading Location: [facility] C013T Transitional Reading Room [facility]2019-09-19 06:39:00 Test Item Value Reference Range Interpretation Comments WHITE BLOOD CELL COUNT (BEAKER) 7.6 K/ L 3.5-10.5 (test code = 775) RED BLOOD CELL COUNT (BEAKER) 4.04 M/ L 3.93-5.22 (test code = 761) HEMOGLOBIN (BEAKER) (test code = 10.1 GM/DL 11.2-15.7 L 410) HEMATOCRIT (BEAKER) (test code = 33.4 % 34.1-44.9 L 411) MEAN CORPUSCULAR VOLUME (BEAKER) 82.7 fL 79.4-94.8 (test code = 753) MEAN CORPUSCULAR HEMOGLOBIN 25.0 pg 25.6-32.2 L (BEAKER) (test code = 751) MEAN CORPUSCULAR HEMOGLOBIN CONC 30.2 GM/DL 32.2-35.5 L (BEAKER) (test code = 752) RED CELL DISTRIBUTION WIDTH 17.0 % 11.7-14.4 H (BEAKER) (test code = 412) PLATELET COUNT (BEAKER) (test 191 K/CU MM 150-450 code = 756) MEAN PLATELET VOLUME (BEAKER) 10.7 fL 9.4-12.3 (test code = 754) NUCLEATED RED BLOOD CELLS 0 /100 WBC 0-0 (BEAKER) (test code = 413) BASIC METABOLIC [id number] 06:03:00 Test Item Value Reference Range Interpretation Comments SODIUM (BEAKER) 137 meq/L 136-145 (test code = 381) POTASSIUM (BEAKER) 3.4 meq/L 3.5-5.1 L (test code = 379) CHLORIDE (BEAKER) 110 meq/L 98-107 H (test code = 382) CO2 (BEAKER) (test 22 meq/L 22-29 code = 355) BLOOD UREA NITROGEN 9 mg/dL 7-21 (BEAKER) (test code = 354) CREATININE (BEAKER) 0.77 mg/dL 0.57-1.25 (test code = 358) GLUCOSE RANDOM 106 mg/dL 70-105 H (BEAKER) (test code = 652) CALCIUM (BEAKER) 7.9 mg/dL 8.4-10.2 L (test code = 697) EGFR (BEAKER) (test 81 mL/min/1.73 ESTIMA ADOLPH GFR IS code = 1092) sq m NOT ACCURATE CREATININE CLEARANCE IN PREDICTING GLOMERULAR FILTRATION RATE . ESTIMATED GFR I S NOT APPLICABLE FOR DIALYSIS PATIEN TS. Handle Maker ID - LORELEI MABORH, [id number] 06:01:00 Test Item Value Reference Range Interpretation Comments ABO Grouping (test code = 2588) O Rh Factor (test code = 2589) POS [facility] [id number] 05:55:00 Test Item Value Reference Range Interpretation Comments TOTAL PROTEIN (BEAKER) (test code = 5.4 gm/dL 6.0-8.3 L 770) ALBUMIN (BEAKER) (test code = 1145) 3.4 g/dL 3.5-5.0 L BILIRUBIN TOTAL (BEAKER) (test code 0.7 mg/dL 0.2-1.2 = 377) BILIRUBIN DIRECT (BEAKER) (test 0.5 mg/dL 0.1-0.5 code = 706) ALKALINE PHOSPHATASE (BEAKER) (test 148 U/L 40-150 code = 346) AST (SGOT) (BEAKER) (test code = 74 U/L 5-34 H 353) ALT (SGPT) (BEAKER) (test code = 249 U/L 6-55 H 347) Handle Maker SANTIAGO GUTIERREZ, [id number] 18:10:00Reason for exam:->ercp Fluoroscopic unit utilized for a procedure performed in the OR. No interpretation was requested. Refer to the operative report for findings. Refer to PACS for patient radiation dose information.FL Endoscopic Retrograde [id number] 18:10:00Interface, External Ris In 09/18/2019 6:38 PM CDTFluoroscopic unit utilized for a procedure performed in the OR. No interpretation was requested. Refer to the operative report for findings. Referto PACS for patient radiation dose information.[facility] HospitalECG 12 [id number] 14:22:38Interface, External Ris In 09/18/2019 2:22 PM CDTVentricular Rate 51 BPMAtrial Rate 51 BPMP-R Interval 136 msQRS Duration 88 msQ-T Interval 496 msQTC Calculation(Bazett) 457 msP [place] 66 degreesR [place] 61 degreesT [place] 55 degreesSinus bradycardiaOtherwise normal ECGNo previous ECGs availableConfirmedby MD Park Roberto ([id number]) on 09/18/2019 2:22:36 [facility] (Asymptomatic ONLY)2019-09-18 09:39:00 Test Item Value Reference Range Interpretation Comments SARS-COV2/RT-PCR Negative Not Detected, (test code = Negative, See 23557-2) external report for linked test SARS-COV-2 [facility] PERFORMING LAB (test code = 40708-9) LUL (test code = Negative result for this LUL) test determines that SARS-CoV-2 RNA was not present in the specimen above the Limit of Detection (LOD). However, Negative results do not preclude SARS-CoV-2 infection and should not be used as the sole basis for treatment or patient management decisions. Negative results must be combined with clinical observations, patient history, and epidemiological information. A false negative result may occur if a specimen is improperly collected, transported or handled. A false negative result should be considered if patient's recent exposures or clinical presentation indicate that COVID-19 (SARS-CoV-2) is likely and diagnostic tests for other causes of illness are negative. Re-testing should be considered in cases of suspected [...] Food and Drug Administration (FDA) cleared or approved. This is a modified version of an approved [...] of the Act. Fact Sheet for Healthcare Providers:https://www.[employer]/sites/default/f hilario/product/documents/F act_Sheet_HC_Providers_L lne_TWYA-FjD-7.pdf Fact Sheet for Healthcare Patients:https://www.[employer]/sites/default/fi les/product/documents/Fa ct_Sheet_Patients_Lyra_S ARS-CoV-2.pdf [place] [place] [place] [address] [facility] ([facility])2019-09-18 09:39:00 Test Item Value Reference Range Interpretation Comments SARS-COV2/RT-PCR (test Negative Not Detected, Negative, code = 2483037) See external report for linked test SARS-COV-2 PERFORMING LAB [facility] (test code = 3767152) Negative result for this test determines that SARS-CoV-2 RNA was not present in the specimen above the Limit of Detection (LOD). However, Negative results do not preclude SARS-CoV-2 infection and should not be used as the sole basis for treatment or patient management decisions. Negative results mustbe combined with clinical observations, patient history, and epidemiological information. A false negative result may occur if a specimen is improperly collected, transported or handled. A false negative result should be considered if patient's recent exposures or clinical presentation indicate that COVID-19 (SARS-CoV-2) is likely and diagnostic tests for other causes of illness are negative. Re-testing should be considered in cases of suspected false negatives.The limit of detection for this assay is 800 copies/mL.This SARS CoV-2 test is a real-time RT-PCR test intended for the qualitative detection of nucleic acid from SARS-CoV-2 in a nasopharyngeal swab specimen collected from individuals suspected of COVID-19 by their healthcare provider.This test has not been Food and Drug Administration (FDA) cleared or approved. This is a modified version of an approved [...] is revoked under Section 564(g) of the Act.Fact Sheet for Healthcare Providers:https://www.EVIIVO.[employer]/sites/default/files/product/documents/Fact_Shee c_MU_Kffguvcpw_Fgzc_DAMA-TsM-7.pdfFact Sheet for Healthcare Patients:https://www.[employer]/sites/default/files/product/ documents/Qoqd_Mpnov_Kkhczmup_Ilhm_ILRJ-EhV-1.pdfPerforming Laboratory[place] [place] [place], [place] [address], [place] [address]L6, [id number] 08:39:00 Test Item Value Reference Range Interpretation Comments FREE T4 (BEAKER) (test code = 655) 0.60 ng/dL 0.70-1.48 L Handle Maker ID - ROSIANGTSH/Free T4 If [id number] 07:14:00 Test Item Value Reference Range Interpretation Comments TSH (test code = 8.511 0.350- 4.940 uIU/mL H 96354-3) LUL (test code = LUL) Handle Maker ID - ROSIANG Lab Interpretation (test Abnormal code = 70535-6) [facility]/FREE T4 IF [id number] 07:14:00 Test Item Value Reference Range Interpretation Comments THYROID STIMULATING HORMONE 8.511 uIU/mL 0.350-4.940 H (BEAKER) (test code = 772) Handle Maker ID - ROSIANEPATIC FUNCTION [id number] 06:15:00 Test Item Value Reference Range Interpretation Comments TOTAL PROTEIN (BEAKER) (test code = 6.2 gm/dL 6.0-8.3 770) ALBUMIN (BEAKER) (test code = 1145) 3.9 g/dL 3.5-5.0 BILIRUBIN TOTAL (BEAKER) (test code 2.2 mg/dL 0.2-1.2 H = 377) BILIRUBIN DIRECT (BEAKER) (test 1.5 mg/dL 0.1-0.5 H code = 706) ALKALINE PHOSPHATASE (BEAKER) (test 198 U/L 40-150 H code = 346) AST (SGOT) (BEAKER) (test code = 283 U/L 5-34 H 353) ALT (SGPT) (BEAKER) (test code = 427 U/L 6-55 H 347) Handle Maker ID - ASBASIC METABOLIC [id number] 06:15:00 Test Item Value Reference Range Interpretation Comments SODIUM (BEAKER) 136 meq/L 136-145 (test code = 381) POTASSIUM (BEAKER) 3.4 meq/L 3.5-5.1 L (test code = 379) CHLORIDE (BEAKER) 108 meq/L 98-107 H (test code = 382) CO2 (BEAKER) (test 20 meq/L 22-29 L code = 355) BLOOD UREA NITROGEN 6 mg/dL 7-21 L (BEAKER) (test code = 354) CREATININE (BEAKER) 0.79 mg/dL 0.57-1.25 (test code = 358) GLUCOSE RANDOM 91 mg/dL 70-105 (BEAKER) (test code = 652) CALCIUM (BEAKER) 8.3 mg/dL 8.4-10.2 L (test code = 697) EGFR (BEAKER) (test 79 mL/min/1.73 ESTIMA ADOLPH GFR IS code = 1092) sq m NOT ACCURATE CREATININE CLEARANCE IN PREDICTING GLOMERULAR FILTRATION RATE . ESTIMATED GFR I S NOT APPLICABLE FOR DIALYSIS PATIEN TS. Handle Maker ID - ASCBC W/PLT COUNT & AUTO [id number] 05:57:00 Test Item Value Reference Range Interpretation Comments WHITE BLOOD CELL COUNT (BEAKER) 12.7 K/ L 3.5-10.5 H (test code = 775) RED BLOOD CELL COUNT (BEAKER) 4.80 M/ L 3.93-5.22 (test code = 761) HEMOGLOBIN (BEAKER) (test code = 11.6 GM/DL 11.2-15.7 410) HEMATOCRIT (BEAKER) (test code = 38.8 % 34.1-44.9 411) MEAN CORPUSCULAR VOLUME (BEAKER) 80.8 fL 79.4-94.8 (test code = 753) MEAN CORPUSCULAR HEMOGLOBIN 24.2 pg 25.6-32.2 L (BEAKER) (test code = 751) MEAN CORPUSCULAR HEMOGLOBIN CONC 29.9 GM/DL 32.2-35.5 L (BEAKER) (test code = 752) RED CELL DISTRIBUTION WIDTH 17.8 % 11.7-14.4 H (BEAKER) (test code = 412) PLATELET COUNT (BEAKER) (test 256 K/CU MM 150-450 code = 756) MEAN PLATELET VOLUME (BEAKER) 10.4 fL 9.4-12.3 (test code = 754) NUCLEATED RED BLOOD CELLS 0 /100 WBC 0-0 (BEAKER) (test code = 413) NEUTROPHILS RELATIVE PERCENT 80 % (BEAKER) (test code = 429) LYMPHOCYTES RELATIVE PERCENT 11 % (BEAKER) (test code = 430) MONOCYTES RELATIVE PERCENT 7 % (BEAKER) (test code = 431) EOSINOPHILS RELATIVE PERCENT 0 % (BEAKER) (test code = 432) BASOPHILS RELATIVE PERCENT 1 % (BEAKER) (test code = 437) NEUTROPHILS ABSOLUTE COUNT 10.21 K/ L 1.56-6.13 H (BEAKER) (test code = 670) LYMPHOCYTES ABSOLUTE COUNT 1.44 K/ L 1.18-3.74 (BEAKER) (test code = 414) MONOCYTES ABSOLUTE COUNT (BEAKER) 0.82 K/ L 0.24-0.36 H (test code = 415) EOSINOPHILS ABSOLUTE COUNT 0.04 K/ L 0.04-0.36 (BEAKER) (test code = 416) BASOPHILS ABSOLUTE COUNT (BEAKER) 0.07 K/ L 0.01-0.08 (test code = 417) IMMATURE GRANULOCYTES-RELATIVE 1 % 0-1 PERCENT (BEAKER) (test code = 2801) Screen, [id number] 00:51:00 Test Item Value Reference Range Interpretation Comments Preg Test, Ur (test code = 2112-1) Negative [facility] [id number] 00:51:00 Test Item Value Reference Range Interpretation Comments TEST URINE (BEAKER) (test Negative code = 583) COMPREHENSIVE METABOLIC [id number] 18:51:00 Test Item Value Reference Range Interpretation Comments TOTAL PROTEIN 6.4 gm/dL 6.0-8.3 (BEAKER) (test code = 770) ALBUMIN (BEAKER) 4.0 g/dL 3.5-5.0 (test code = 1145) ALKALINE PHOSPHATASE 205 U/L 40-150 H (BEAKER) (test code = 346) BILIRUBIN TOTAL 3.8 mg/dL 0.2-1.2 H (BEAKER) (test code = 377) SODIUM (BEAKER) (test 137 meq/L 136-145 code = 381) POTASSIUM (BEAKER) 3.6 meq/L 3.5-5.1 (test code = 379) CHLORIDE (BEAKER) 110 meq/L 98-107 H (test code = 382) CO2 (BEAKER) (test 15 meq/L 22-29 L code = 355) BLOOD UREA NITROGEN 5 mg/dL 7-21 L (BEAKER) (test code = 354) CREATININE (BEAKER) 0.74 mg/dL 0.57-1.25 (test code = 358) GLUCOSE RANDOM 116 mg/dL 70-105 H (BEAKER) (test code = 652) CALCIUM (BEAKER) 9.2 mg/dL 8.4-10.2 (test code = 697) AST (SGOT) (BEAKER) 467 U/L 5-34 H (test code = 353) ALT (SGPT) (BEAKER) 526 U/L 6-55 H (test code = 347) EGFR (BEAKER) (test 85 mL/min/1.73 ESTIMA ADOLPH GFR IS code = 1092) sq m NOT ACCURATE CREATININE CLEARANCE IN PREDICTING GLOMERULAR FILTRATION RATE . ESTIMATED GFR I S NOT APPLICABLE FOR DIALYSIS PATIEN JUSTIN. Handle Maker ID - [id number] CSpecimen slightly ictericCBC (HEMOGRAM ONLY)2019-09-17 18:14:00 Test Item Value Reference Range Interpretation Comments WHITE BLOOD CELL COUNT (BEAKER) 8.6 K/ L 3.5-10.5 (test code = 775) RED BLOOD CELL COUNT (BEAKER) 4.73 M/ L 3.93-5.22 (test code = 761) HEMOGLOBIN (BEAKER) (test code = 11.5 GM/DL 11.2-15.7 410) HEMATOCRIT (BEAKER) (test code = 38.0 % 34.1-44.9 411) MEAN CORPUSCULAR VOLUME (BEAKER) 80.3 fL 79.4-94.8 (test code = 753) MEAN CORPUSCULAR HEMOGLOBIN 24.3 pg 25.6-32.2 L (BEAKER) (test code = 751) MEAN CORPUSCULAR HEMOGLOBIN CONC 30.3 GM/DL 32.2-35.5 L (BEAKER) (test code = 752) RED CELL DISTRIBUTION WIDTH 17.2 % 11.7-14.4 H (BEAKER) (test code = 412) PLATELET COUNT (BEAKER) (test 230 K/CU MM 150-450 code = 756) MEAN PLATELET VOLUME (BEAKER) 10.6 fL 9.4-12.3 (test code = 754) NUCLEATED RED BLOOD CELLS 0 /100 WBC 0-0 (BEAKER) (test code = 413)
[2019-10-30] MEDS ORDERED: KETOROLAC 30 MG/ML INJ ONE (17:52)
--- NOTE | 2019-10-30 17:57 | RAD REPORT ---
EXAM DESCRIPTION: CT - Stone Protocol - 10/30/2019 5:40 pm CLINICAL HISTORY: Abdominal pain./flank pain COMPARISON: September 2019 TECHNIQUE: Computed axial tomography of the abdomen pelvis was obtained without oral or IV contrast. Lack of IV and oral contrast limits evaluation of solid organs, bowel, and vessels. Coronal reformat scarlett images were obtained and reviewed. All CT scans are performed using dose optimization technique as appropriate and may include automated exposure control or mA/KV adjustment according to patient size. FINDINGS: 4.5 centimeters cystic mass right kidney. Additional smaller cystic mass contains a puncta te calcification. A renal calculus is not seen. Hydronephrosis. A ureteral calculus is not visualized. No bladder calcu mindi The liver, spleen, pancreas and adrenals appear grossly normal There is no evidence of diverticulitis. The appendix appears normal Cholecystectomy IMPRESSION: Cystic renal masses probably benign. Follow up renal ultrasound in 3 months recommended for re-evaluation
[2019-10-30 18:13] LABS: Absolute Lymphocytes (CBC) 3.3 K/uL (0.7-4.9); Hematocrit 43.1 % (36.0-45.0); Lymphocytes % 30.4 % (15.3-44.8); MPV 8.1 fL (7.6-11.3); RBC Red Blood Cell Count 5.03 M/uL (3.86-4.86)
[2019-10-30 18:21] LABS: Potassium 3.4 mmol/L (3.5-5.1)
--- NOTE | 2019-10-30 18:27 | EDPHYS ---
Physician Documentation [facility] Name: Rachel King Age: 43 yrs Sex: Female : 1975 Arrival Date: 10/30/2019 Time: 17:05 Bed 7 Private MD: Miah Ojeda ED Physician Jose Richardson HPI: 10/29 17:56 This 43 yrs old Female presents to ER via Ambulatory with complaints of kb Abdominal Pain. 17:56 The patient complains of pain in the right flank. The pain radiates to the groin. kb Onset: The symptoms/episode began/occurred 1 week(s) ago. Modifying factors: The symptoms are alleviated by nothing. the symptoms are aggravated by nothing. Associated signs and symptoms: The patient has no apparent associated signs or symptoms. Severity of pain: At its worst the pain was moderate in the emergency department the pain is unchanged. The patient has not experienced similar symptoms in the past. The patient has not recently seen a physician. Pt reports right flank pain that radiates to right groin for one week. Denies urinary symptoms. States she went to [place] ER last night and they said she pulled a muscle, but didn't do anything. States she doesn't think that is what it is so she came here to get checked out. States she has been moving stuff recently. [employer]: 17:27 LMP 10/30/2019 ss Historical: - Allergies: 17:27 Codeine; ss - PMHx: 17:27 Chronic pain; Thyroid problem; ss - Immunization history:: Adult Immunizations up to date. - Social history:: Smoking status: Patient reports the use of cigarette tobacco products, smokes one pack cigarettes per day. ROS: 17:55 Constitutional: Negative for fever, chills, and weight loss, Cardiovascular: Negative kb for chest pain, palpitations, and edema, Respiratory: Negative for shortness of breath, cough, wheezing, and pleuritic chest pain, Abdomen/GI: Negative for abdominal pain, nausea, vomiting, diarrhea, and constipation, : Negative for injury, bleeding, discharge, and swelling, MS/Extremity: Negative for injury and deformity, Skin: Negative for injury, rash, and discoloration, Neuro: Negative for headache, weakness, numbness, tingling, and seizure. 17:55 Back: Positive for flank pain, on the right, radiated pain. Exam: 17:55 Constitutional: This is a well developed, well nourished patient who is awake, alert, kb and in no acute distress. Head/Face: Normocephalic, atraumatic. Chest/axilla: Normal chest wall appearance and motion. Nontender with no deformity. No lesions are appreciated. Cardiovascular: Regular rate and rhythm with a normal S1 and S2. No gallops, murmurs, or rubs. Normal PMI, no JVD. No pulse deficits. Respiratory: Lungs have equal breath sounds bilaterally, clear to auscultation and percussion. No rales, rhonchi or wheezes noted. No increased work of breathing, no retractions or nasal flaring. Abdomen/GI: Soft, non-tender, with normal bowel sounds. No distension or tympany. No guarding or rebound. No evidence of tenderness throughout. Skin: Warm, dry with normal turgor. Normal color with no rashes, no lesions, and no evidence of cellulitis. MS/ Extremity: Pulses equal, no cyanosis. Neurovascular intact. Full, normal range of motion. Neuro: Awake and alert, GCS 15, oriented to person, place, time, and situation. Cranial nerves II-XII grossly intact. Motor strength 5/5 in all extremities. Sensory grossly intact. Cerebellar exam normal. Normal gait. 17:55 Back: pain, that is moderate, of the right flank, ROM is normal, normal spinal alignment noted, CVA tenderness, that is moderate, is noted on the right. Vital Signs: 17:26 BP 122 / 77; Pulse 54; Resp 16; Temp 96.9(TE); Pulse Ox 98% on R/A; Weight 77.11 kg; ss Height 5 ft. 6 in. (167.64 cm); Pain 8/10; 18:05 BP 112 / 82; Pulse 56; Resp 16; Pulse Ox 98% ; Pain 8/10; jl7 18:37 BP 121 / 98; Pulse 59; Resp 17; Pulse Ox 98% on R/A; tw2 17:26 Body Mass Index 27.44 (77.11 kg, 167.64 cm) MDM: 17:28 Patient medically screened. kb 17:54 Data reviewed: vital signs, nurses notes. Data interpreted: Pulse oximetry: on room air kb is 98 %. Interpretation: normal. 18:26 Counseling: I had a detailed discussion with the patient and/or guardian regarding: the kb historical points, exam findings, and any diagnostic results supporting the discharge/admit diagnosis, lab results, radiology results, the need for outpatient follow up, a family practitioner, to return to the emergency department if symptoms worsen or persist or if there are any questions or concerns that arise at home. 10/29 17: Order name: Basic Metabolic Panel; Complete Time: 18:25 kb 10/29 17:28 Order name: CBC with Diff kb 10/29 17: Order name: CT Stone Protocol; Complete Time: 18:03 kb 10/29 18:05 Order name: Urine Dipstick--Ancillary (enter results) em1 10/29 18:05 Order name: Urine --Ancillary (enter results) em1 10/29 17: Order name: IV Saline Lock; Complete Time: 18:00 kb 10/29 17: Order name: Labs collected and sent; Complete Time: 18:00 kb 10/29 17:28 Order name: Urine Dipstick-Ancillary (obtain specimen); Complete Time: 18:00 kb Administered Medications: 18:00 Drug: TORadol - Ketorolac 15 mg Route: IVP; Site: right antecubital; jl7 18:36 Follow up: Response: No adverse reaction tw2 18:36 Follow up: Response: Pain is decreased tw2 Disposition: 18:44 Co-signature as Attending Physician, Jose Richardson MD. rn Disposition: 10/30/19 18:26 Discharged to Home. Impression: Low back pain. - Condition is Stable. - Discharge Instructions: Musculoskeletal Pain, Back Exercises, Gcnd-qm-Mint. - Prescriptions for Cyclobenzaprine 10 mg Oral Tablet - take 1 tablet by ORAL route every 8 hours As needed; 21 tablet. Diclofenac Sodium 75 mg Oral Tablet, Delayed Release (E.C.) - take 1 tablet by ORAL route 2 times per day As needed; 30 tablet. - Medication Reconciliation Form, Thank You Letter, Antibiotic Education, Prescription Opioid Use form. - Follow up: Emergency Department; When: As needed; Reason: Worsening of condition. Follow up: Private Physician; When: 2 - 3 days; Reason: Recheck today's complaints, Continuance of care, Re-evaluation by your physician. Signatures: Dispatcher [employer] [facility] Charity Westbrook, CUTTING MACHINE OPERATOR-C CUTTING MACHINE OPERATOR-Ckb Jose Richardson MD MD rn Iveth Bell RN RN ss Rasheeda Alva RN RN tw2 Wendi Palomares RN RN jl7 Corrections: (The following items were deleted from the chart) 18:38 18:26 10/30/2019 18:26 Discharged to Home. Impression: Low back pain. Condition is tw2 Stable. Forms are Medication Reconciliation Form, Thank You Letter, Antibiotic Education, Prescription Opioid Use. Follow up: Emergency Department; When: As needed; Reason: Worsening of condition. Follow up: Private Physician; When: 2 - 3 days; Reason: Recheck today's complaints, Continuance of care, Re-evaluation by your physician. kb
--- NOTE | 2019-10-30 18:27 | ER ---
Nurse's Notes [facility] Name: Rachel King Age: 43 yrs Sex: Female : 1975 Arrival Date: 10/30/2019 Time: 17:05 Bed 7 Private MD: Miah Ojeda Diagnosis: Low back pain Presentation: 10/29 17:26 Chief complaint: Patient states: R flank pain that radiates towards RLQ x 1 week. ss Coronavirus screen: Client denies travel out of the [place] in the last 14 days. Ebola Screen: Patient denies exposure to infectious person. Patient denies travel to an Ebola-affected area in the 21 days before illness onset. Initial Sepsis Screen: Does the patient meet any 2 criteria? No. Patient's initial sepsis screen is negative. Does the patient have a suspected source of infection? No. Patient's initial sepsis screen is negative. Risk Assessment: Do you want to hurt yourself or someone else? Patient reports no desire to harm self or others. Onset of symptoms was November 02, 2019. 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 - Social history:: Smoking status: Patient reports the use of cigarette tobacco products, smokes one pack cigarettes per day. Screenin:05 Abuse screen: Denies threats or abuse. Denies injuries from another. Nutritional jl7 screening: No deficits noted. Tuberculosis screening: No symptoms or risk factors identified. Fall Risk IV access (20 points). Total Irene Fall Scale indicates No Risk (0-24 pts). Assessment: 17:45 General: Appears in no apparent distress. uncomfortable, Behavior is calm, cooperative, jl7 appropriate for age. Pain: Complains of pain in right lower quadrant Pain radiates to pelvis and right flank Pain currently is 8 out of 10 on a pain scale. Pain began x 1 week Is continuous. Neuro: Level of Consciousness is awake, alert, obeys commands, Oriented to person, place, time, situation. Cardiovascular: Patient's skin is warm and dry. Respiratory: Airway is patent Respiratory effort is even, unlabored, Respiratory pattern is regular, symmetrical. GI: Abdomen is non-distended, Abd is soft X 4 quads Abdomen is tender to palpation in right lower quadrant. : Denies burning with urination, pain. Derm: Skin is pink, warm \T\ dry. 17:45 GI: Bowel sounds present X 4 quads. tw2 18:37 Reassessment: Patient appears in no apparent distress at this time. No changes from tw2 previously documented assessment. Patient and/or family updated on plan of care and expected duration. Pain level reassessed. Patient is alert, oriented x 3, equal unlabored respirations, skin warm/dry/pink. Vital Signs: 17:26 BP 122 / 77; Pulse 54; Resp 16; Temp 96.9(TE); Pulse Ox 98% on R/A; Weight 77.11 kg; ss Height 5 ft. 6 in. (167.64 cm); Pain 8/10; 18:05 BP 112 / 82; Pulse 56; Resp 16; Pulse Ox 98% ; Pain 8/10; jl7 18:37 BP 121 / 98; Pulse 59; Resp 17; Pulse Ox 98% on R/A; tw2 17:26 Body Mass Index 27.44 (77.11 kg, 167.64 cm) ED Course: 17:05 Patient arrived in ED. ag5 17:05 Miah Ojeda DO is Private Physician. ag5 17:27 Triage completed. ss 17:27 Arm band placed on right wrist. ss 17:28 Charity Westbrook F[facility]-C [facility]. kb 17:28 Jose Richardson MD is Attending Physician. kb 17:39 Wendi Palomares RN is Primary Nurse. jl7 17:39 CT Stone Protocol In Process Unspecified. EDMS 17:55 Inserted saline lock: 20 gauge in right antecubital area, using aseptic technique. kj1 Blood collected. 17:55 Initial lab(s) drawn, sent to lab. kj1 17:55 Urine collected: clean catch specimen, clear. kj1 18:05 Patient has correct armband on for positive identification. Placed in gown. Bed in low jl7 position. Call light in reach. Side rails up X 1. Pulse ox on. NIBP on. 18:05 Warm blanket given. jl7 18:36 No provider procedures requiring assistance completed. IV discontinued, intact, tw2 bleeding controlled, No redness/swelling at site. Pressure dressing applied. Administered Medications: 18:00 Drug: TORadol - Ketorolac 15 mg Route: IVP; Site: right antecubital; jl7 18:36 Follow up: Response: No adverse reaction tw2 18:36 Follow up: Response: Pain is decreased tw2 Outcome: 18:26 Discharge ordered by MD. flores 18:36 Discharged to home ambulatory. tw2 18:36 Condition: stable 18:36 Discharge instructions given to patient, Instructed on discharge instructions, follow up and referral plans. no drinking with medication, no driving heavy equipment, medication usage, Demonstrated understanding of instructions, follow-up care, medications, Prescriptions given X 2. 18:38 Patient left the ED. tw2 Signatures: Dispatcher [employer] EDMS Charity Westbrook, BAYRON ARREDONDO-Iveth Landers RN RN ss Wise, Tara RN RN tw2 Wendi Palomares RN RN jl7 Bia Pitts ag5 Trena Westbrook kj1 Corrections: (The following items were deleted from the chart) 17:28 17:26 Pulse 54bpm; Resp 16bpm; Temp 96.9F Temporal; ss ss 18:04 18:03 Initial lab(s) drawn, sent to lab. kj1 kj1 18:06 18:05 BP 112 / 82; Pulse 56bpm; Resp 56bpm; Pulse Ox 98%; Pain 8/10; jl7 jl7
[2019-10-30 18:46] VITALS: TEMP 96.9; O2SAT 98
[2019-10-30 18:49] VITALS: BP 121/98
[2019-10-30 18:56] LABS: Urine Blood 3+ (NEG); Urine Glucose NEGATIVE (NEG); Urine Protein NEGATIVE (NEG); Urine Specific Gravity 1.015 (1.005-1.030); Urine pH 6.5 (5.0-7.0)
[2019-10-30 20:08] LABS: Anisocytosis SLIGHT; Blood Morphology Comment NOTED (NOT SEEN); Platelet Estimate ADEQ; White Blood Cell Scan OK (OK)
== END 2019-10-30 18:38 | disposition home or self-care (01) ==
LOC: ER 17:03
DX: M54.5 Low back pain (principal); F17.210 Nicotine dependence, cigarettes, uncomplicated; Z88.5 Allergy status to narcotic agent
CPT/HCPCS: 36415; 74176; 76377; 80048; 81003; 81025; 85025; 96374; 99284

== ENCOUNTER 2020-07-03 12:09 | Emergency (ER) | payer SELFPAY ==
--- OUTSIDE RECORDS SUMMARY | 2020-07-03 12:14 | XMS REPORT | Continuity of Care Document ---
:1975 Author Organization [facility] t Address [address] [place] [address] Care Team Providers Name Role Phone Kalpana Salvador MD Attending Clinician Bernardo Ojeda Attending Clinician [phone] JODY MIN Attending Clinician Unavailable Jody Min MD Attending Clinician aJyson SHAVER Attending Clinician Ra Ortega MD Attending Clinician Gabriel Monroy MD Attending Clinician Paris CARVAJAL Attending Clinician Martina SHAVER Attending Clinician Trisha Pryor MD Attending Clinician Segundo Mehta MD Attending Clinician Cj Patrick MD Attending Clinician JAYSON Admitting Clinician Unavailable Problems Condition Condition Condition Status Onset Resolution Last Treating Co mments Source Name Details Category Date Date Treatment Clinician Date 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 lithiasis 09-16 [facility] - 00:[facility]: [facility] Center Allergies, Adverse Reactions, Alerts Allergy Allergy Status Severity Reaction(s) Onset Inactive Treating Comm ents Source Name Type Date Date Clinician Codeine Propensi Active Itching 2019- [facility] - adverse 00:00: benadryl Medical reaction 00 with med [facility] [facility] Family History Family Member Diagnosis Comments Start Date Stop Date Source Natural father Diabetes [facility] Maternal grandmother Cancer [facility] Maternal grandmother Diabetes [facility] Natural mother Diabetes [facility] Social History Social Habit Start Date Stop Date Quantity Comments Source History [facility] - Alcohol Std Drinks Medica Center History [facility] - Alcohol Binge Medical Sudha ter Sex Assigned At [facility] Cigarettes smoked 2019-09-23 2019-09-23 [facility] - current (pack per 00:00:00 00:00:00 [facility] day) - Reported Cigarette 2019-09-23 2019-09-23 [facility] - pack-years 00:00:00 00:00:00 [facility] Tobacco use and 2019-09-23 2019-09-23 Never used [facility] - exposure 00:00:00 00:00:00 [facility] Alcohol intake 2019-09-23 2019-09-23 Current [facility] - 00:00:00 00:00:00 non-drinker of Medical Ce nter alcohol (finding) Tobacco Comment 2019-09-18 2019-09-18 Pt willing to [facility] - 00:00:00 00:00:00 quit as [facility] verbalized. [facility] 2019-09-17 2019-09-[address] [facility] - Alcohol Frequency 00:00:00 00:00:00 [facility] Smoking Status Start Date Stop Date Source Current every day smoker 2019-09-23 00:00:00 [facility] Medications Ordered Filled Start Stop Current Ordering Indication Dosage Frequency Signature Comments Components Source Medication Medication Date Date Medication? Clinician (SIG) Name Name levothyroxi 2019- No 300ug Take [address] [facility] ne 09-22 mcg by [facility] - (SYNTHROID, 12:26: 00:00 mouth Medi gian LEVOTHROID) 50 :00 Every Center 300 MCG morning on tablet an empty stomach. ferrous 2020- No 325mg Q.5D Take [address] sulfate 325 09-22 tablet [facility] - (65 FE) MG 00:00: 23:59 (325 mg Med ical EC tablet 00 :00 total) by Cente r mouth 2 (two) times daily. levothyroxi No 125ug Take [address] ne 09-2217 tablet [facility] - (SYNTHROID, 00:00: 23:59 (125 [...] M edical LEVOTHROID) 00 :00 total) by [facility] ter 75 MCG mouth tablet Every morning on an empty stomach. Vital Signs Vital Name Observation Time Observation Value Comments Source Oxygen saturation in 2019-09-23 13:36:00 97 /min [facility] - Arterial blood by Medical Ce nter Pulse oximetry Respiratory rate 2019-09-23 13:36:00 18 /min [facility] Systolic blood 2019-09-23 11:37:00 123 mm[Hg] [facility] Diastolic blood 2019-09-23 11:37:00 64 mm[Hg] [facility] S t [facility] Heart rate 2019-09-23 11:37:00 61 /min [facility] Body temperature 2019-09-23 11:37:00 36.39 Gela [facility] Body height 2019-09-18 14:25:00 167.6 cm [facility] Body weight 2019-09-18 14:25:00 80.831 kg [facility] BMI 2019-09-18 14:25:00 28.76 kg/m2 [facility] Procedures Procedure Date / Time Performed Performing Clinician [facility] e REPORT OF PROCEDURE - 2019-10-01 14:25:33 Rafael Patrick [facility] ENDOSCOPY [facility] RHYTHM STRIP - SCAN 2019-09-24 13:40:36 Provider[facility] BASIC METABOLIC PANEL (7) 2019-09-23 04:19:00 Debbie Ortega [facility] CBC W/PLT COUNT & AUTO 2019-09-23 04:19:00 Debbie Ortega [facility] HEPATIC FUNCTION PANEL 2019-09-23 04:19:00 Kunal Smith [facility] TRANSFUSION SERVICE 2019-09-22 18:00:34 Provider, Default [facility] REPORT - SCAN [facility] TISSUE EXAM 2019-09-22 15:43:00 Robin Mack [facility] LAPAROSCOPY,CHOLECYSTECTO 2019-09-22 14:42:00 Robin Mack [facility] CBC WITH PLATELET COUNT + 2019-09-22 04:38:00 [facility] (CELLAVISION MANUAL DIFF) 2019-09-22 04:38[facility]UAL DIFF 2019-09-22 04:38:00 [facility]OLIC [facility]EL (7) 2019-09-22 04:38:00 Anahi Metz [facility] HEPATIC FUNCTION PANEL 2019-09-22 04:38:00 Isaías [facility] PROTHROMBIN TIME/INR 2019-09-22 04:38:00 Debbie Ortega [facility] TYPE AND SCREEN, 2019-09-21 17:36:00 [facility] T4, FREE 2019-09-21 17:36:00 Al-Caitlin Zamudio [facility] HEPATIC FUNCTION PANEL 2019-09-21 05:20:00 Isaías Anahi [facility] BASIC METABOLIC PANEL (7) 2019-09-21 05:20:00 Tanvir Paradag [facility] TRANSFUSION SERVICE 2019-09-20 18:01:24 Provider, Default [facility] REPORT - SCAN Scanning [facility] T4, FREE 2019-09-20 05:23:00 Isabella, Fnu [facility] IRON, TIBC, % SAT. 2019-09-20 05:23:00 JaysonStas [facility] (WITHOUT FERRITIN) Medical Cente r FERRITIN 2019-09-20 05:23:00 Stas Parada [facility] CBC (HEMOGRAM ONLY) 2019-09-20 05:23:00 Stas Parada [facility] COMPREHENSIVE METABOLIC 2019-09-20 05:23:00 Nazanin ParadaBebetog [facility] TRANSFUSION SERVICE 2019-09-19 18:01:56 Provider, Default [facility] REPORT - SCAN Scanning [facility] XR CHEST 1 VIEW 2019-09-19 15:49:00 Jayson Tanvirg [facility] CBC (HEMOGRAM ONLY) 2019-09-19 04:34:00 Stas Parada [facility] ABORH, MANUAL 2019-09-19 04:33:00 Jo Ann Chavira [facility] BASIC METABOLIC PANEL (7) 2019-09-19 04:33:00 Stas Parada [facility] HEPATIC FUNCTION PANEL 2019-09-19 04:33:00 Stas Parada [facility] FL ERCP 2019-09-18 18:10:00 Easton Murry [facility] ERCP,PANCREATIC STENT 2019-09-18 17:09:00 Rafael Patrick [facility] PROCEDURE W/ C-ARM 2019-09-18 17:09:00 Rafael Patrick [facility] ERCP,PAPILLOTOMY 2019-09-18 17:09:00 Rafael Patrick ousmane [facility] ERCP,BALLOON SWEEPING 2019-09-18 17:09:00 Rafael Patrick [facility] ECG 12-LEAD 2019-09-18 12:01:19 William ParadaOralia [facility] TYPE AND SCREEN, 2019-09-18 05:25:00 Easton Murry [facility] CBC W/PLT COUNT & AUTO 2019-09-18 05:25:00 William ParadaOralia [facility] BASIC METABOLIC PANEL (7) 2019-09-18 05:25:00 Stas Parada I [facility] HEPATIC FUNCTION PANEL 2019-09-18 05:25:00 Stas Parada [facility] TSH/FREE T4 IF INDICATED 2019-09-18 05:25:00 [facility] 2019-09-18 05:25:00 Jayson [facility] SARS-COV2/RT-PCR ([facility] & 2019-09-18 00:57:00 Mason Murry [facility] REF LABS) [facility] SCREEN, URINE 2019-09-18 00:14:00 William ParadaBetsey [facility] CBC (HEMOGRAM ONLY) 2019-09-17 17:39:00 Stas Parada [facility] COMPREHENSIVE METABOLIC 2019-09-17 17:39:00 [facility] Plan of Care Planned Activity Planned Date Details Comments Source Future Scheduled 2019-10-07 INFLUENZA VACCINE (#1) [facility]00 [code = INFLUENZA Medical Ce nter VACCINE (#1)] Future Scheduled [address] [facility] - Test 00:00:00 (procedure) [code = Medical Center 34226435] Future Scheduled [address] [facility] - Test 00:00:00 malignant neoplasm of Medica l Center cervix (procedure) [code = 138211588] Future Scheduled 1979-12-[address] [facility] - Test 00:00:00 0-64 YRS (1 of 1 - Medical C enter PPSV23) [code = PNEUMOCOCCAL VACCINE 0-64 YRS (1 of 1 - PPSV23)] Encounters Start End Encounter Admission Attending Care Care Encounter Source Date/Time Date/Time Type Type Clinicians Facility Department ID 2020-06-18 2020-06-18 Refill [facility] [id number] 00:00:00 00:00:00 [facility] [id number] Surgical [id number] Specialti [id number] [address] 2020-06-18 2020-06-18 Telephone [facility] [id number] 00:00:00 00:00:00 [facility] [id number] Surgical [id number] Specialti [id number] [address] 2020-04-20 2020-04-[address] [facility] [id number] 00:00:00 00:00:00 Miah [id number] Bernardo [id number] 2020-03-05 2020-03-[address] [facility] [id number] 00:00:00 00:00:00 Miah [id number] Bernardo [id number] 2020-01-28 2020-01-28 Office [facility] [id number] 14:57:23 15:28:32 [facility] [id number] Surgical [id number] Specialti [id number] [address] Results Test Description Test Time Test Comments Results Result Comments Source Tissue Exam 2019-09-26 09:38:00 Test Item Value Reference Range Interpretation Comme nts Case Report (test code = 104) Surgical Pathology Report Case: [id number] Authorizing Provider: Robin Mcak MD Collected: 09/22/2019 03:43 PM Ordering Location: [facility] PERIOPERATIVE Received: 09/22/2019 06:13 PM SERVICES Pathologist: Elio Cox MD Specimen: Gallbladder DIAGNOSIS (test code = 3220) w6hnnDYrZEVie0xyRJSwgXUmBzAeWhFxVfGgBy pc kHVrEIqetcBvINlid7QsM4YhVrYzCNndteEcZUMk UxmmwnikXYTcUKA1raHcODYeXGstYHEdSLwoHu4p ySDziSgqYiHePKMar3gqlmPWwzsmcIj4hYsiI19r f6Y1PlqgB9uwCYHhUNXvY0WsYQ2qFECzLtz8DUW8 UCB2USPyKKJpG3KeSQ9aCUKkaLRdFFu4o3vkwPpe JHOzIBT2l4uqTVjtynAuBM9dbs6thEq4s4lcbwOt EUFrFCXvjTPKYZKcY7MerMxoZt5zjWm5iHvfFilk GIZ1Oaq0LT3ndk45yvq9aVeyAPZwphpmWqS5WVaf GXLpubszOHu8UVguTVXniYuuNGfeLHHigbueLLeg CJJytTxtWRtvHFXpKeeeOLuxITVoSTH3NRudf270 RAA1DJydt6ype5meoDJlHng6GSRwYtXeZoaiVWcy u0Jwy3riOKTzuh5xJWG5uWSkyNssl3P5qIUzCUNd vXVpgnAiLYPjNxE2SNdfNW1qyr37GJRsIHH4fa5s bCMarDvhilFjjZAlRVwhA7JrMTTsi085ZRCsD6Ds RIPdc6D0kyDxLyRoPIKgaFW8weU9DRHuVVq7eAMi sjU7qnLknVXjR3itjD19CoTfzJWtR1NsyB97UtYr pBWnZ6YpxB08KjTqjMAlQ6SqpT93SsVgtLVnBAJt pLPuKs6lxRGhbPLcg8BbeDZyTYnmI74rx215RZDl frUpE7cjqMUmjyfonQWqthzdMPhrsvM0KBRsTKTv YWluXGYwXGZzMjBcbGFuZzEwMzNcaGljaFxmMFxk KfOvWIWjGUemV3ktGkDvHdHaWXBEFjKWEIvTZngU KHTLYanrS5pFUPXXOKNLQXJKX65XQnjjNIZfZJ2z XYOAJy5EKXGbU8pVLFOLEKXMBQJPZiHfkKWeFEOk VOCOWJiUJMyJYTUXM8NfAIpUMTaXF0jZAT5GOG3Z SYhGAxMEO0rihPSdJWPang69UOS4YjRox5F1XUB4 YLNeLEDxy2taMIAvnUXxUkWjSgCeLnRhKdnmlESd HWQeBaDii4fvd403xWOdk6enSSOiQkY5mUFvKGMv aJDaZ028QLZvWXwfq4qku8LkPWNqtRWrz6P2CUPJ mozjcPn9vXrqQ67vf8K5AtnsZ1zbDTGvLBPfY9Qn ZL5fGCEsItw0UOE2SIV9HZQpPBHmO1ErTI1uJWJh wDRtKSi1g2ndaJzaELNxIZP6e5ecGWvxmxWtZT1b yo7awVb3s7foyeOaLLDhXUUqpPHNAFHnJ1VaxZxk Fm7bhDw5aWqnDqtfDOS6Smk7JK5llf76cpp8wQfc QICltyreUhZ6LCnmJXObwiisMIf6OZtoKYBxtRE7 YPClzBFgH1LuEMIfID0cdnr3PRL3GGodAZCtDnG1 NISwzSRhLFOnqExgCKrmv952DGJ2DdDrIK6pC4Ad l5U6tL8sdXGiXLLthLJtRtMsGHXhaj7dsEDvTUvo r2BlXAN0lbM7uRNbqPLxNKPbGsA0UAvvXO8nkr21 TUBtOUK0tn6ezUFcxStnisHidEYoMVtdF8ZyIZWz m658JQZoT6GgDMYbi0G3eaDtJdHtLBVlqZA9lxT4 BAPuAN9fovdkz1jxMQdfURhbAGMzpoX0bwO1RDCl lBShS6QzqO2cGXLuHV5ctecjo1wkUGD3JAalLVKc MWM2GeZnYFTqt0Xowcr4IjFtt7IrwZYpMNlnO75b a267JVIsigGxN2trbVEopymesQPmjrrvVYgwkzB6 CWCmYDyehzmlWVQcPWqoN0fePiNjFGLczGjpRVfe u7EtIRHlMZMsHaDteJNgSUMtGin9OHMiwJBbEVDp WjWbL6mwduanJlTNPEDap1dcW1kepSNKaTYsY4Qr PTcucoLtFCfeJUeyWLEaUTX9UV9eVCGdZYVrrv42 CPT Code(s) (test code = 3357) d1vvlZHhGCYrwUMzQnJiVTXgXXCmc2wtVQAe bGFu QmAhRtJsMgGtMztufWBsBVIxNvFln3rvg410oVLt r6gxGESgQuA9mOJsHIIfgBSnS712g4aih5wiecAi qKE0AIUjWEI8MJkcfdEclaV3FStrsVDiFwX6YGyl zeYcTVrmfwLyipUzFcu6ERYbJ259XFN7hHqbr2hb XOU8RFArCXHuBzIwRh3kxREzN286EPNcKDFWCDLn qYt3VCKxezDetpHcdXNKs101L648i2vgTFThigHe bRmEluvnx2uqP839WEQpmVVrpbWiJzIkUZMabIFk nIX9NLVaNW3gzoonRaSzSC1jarpyRaWjPP5acgi7 MjNtDT0hmulkHrThOVdjXHKsgvwbCMNrh7Deosud AK3vX8Rmb7G7mI7jrYDhRZVjfAJsZtRfIAMwnl3h iMEnXDywf4SnPJB0onS7fBFjfCZaCZJiOJ30Cxjl v1NzKbcxGRW3PVLwtxBno0Odj1pgEfQrwxRjZ7oa V0RuGIJmSQAfSUDeKcGobfQzp0Vvn1LpfNVroKz0 z6efMJEcZOEtiPqrt1zdAOS7SBIiX1L3rWWzp7rq KLylQVVxfBE2hmpyHCtfSMKrrrM1eecuCKkgTJHz hQJ9slswIBosFHCaIoZ6wnkcCVcxPDSnLBW9NJay x697BSS5ILaiAfkqLBuiZATicuQlnkOxbYhwBOZq FPKhXSvlLBCcGWtvVXNnDFMpWhSvqEzriHtrsP9o JmLgBsHdQWdgHF9xHBWaF8dvfZAuYKLdGCBjL8et UcGtpQ8aoSyvZMgwroIsDIx1QyF6QPWnbi0= CLINICAL HISTORY (test code = 3356) o8mjtMZeJLRrgCTrTdHvVOXsMPUnn2c cZGVmbGFu DeZgPtVyMrMwWdwgzBCjFRXuEeWfx2idp461uYSj p6jgLRFhQzV2fFGyQNMtmZDtD130b4ptd0qjrrBz oND0FDPhAKZ4OAvjjiHsohO0YFvnxWQoDuH0OTwq taKbBLqafgHetrFoEev3NFAqF332OEZ1wSfhy3wg TRA6RQCcFHFaOiWrHu2wcJJyV050ZEFiCXPMOTLq qZv7CVKkgmOjpvFvwHBHy239L422k9wfAAZnhnDv oMhDbyjfj5ugR610SRCojAIvkeYhBcCvCVZzdNQl qZQ4FIIbXR1qsgkbObJrTI1cypedZgTbSB2lchj9 IeEqJB1ypnkdCwSbNHslFYOambptACBuc8Fxjpvy IU4uB1Oph3H2jQ6lcTZyHUBjuYPdRdRyQQOdic6n nCJeFKsdo3IaHLJ1qmV2zEJcoCQjCNUoUU03Mgeg z8YwIsumTCV6OADuvyKbp7Dyu4znEtArmzLmS5jy F4DcEMXcJFHfIWUhAzQuddEil6Dzs9UdaULolMk5 s5ukBQThFZGqhItvz3ywWQP1EYYiN4S0dTPyn0lp YJiqNYDuxUK7wnquMXztYNCitkU7diwkCOwtSOTf yWL9mdsgWPysWIZwByB7uhktEKbnDRLgDTB2FEkh m596ASO1KOgiIfmfFJnsTRSaurNfvmSzyOpcFUQw TDUoYOmrOXXjCRinNKDzSCThLsTumNgknRbfiG6s WdEkEpKfUIcmXY9aZTAxS1weuQBiSMSpFMGiR9ku YaCvkM5dsVjdEPzfisZjPMBzu8loXX9aaYy0mZGx FBLom6iaEX9qbD4soSFljOKraAHePIRiyw7= SPECIMEN SOURCE (test code = 3377) c2zjjECvSWBrjIXwPmHxRIMmDDFxh2aa ZGVmbGFu QzOiEqArGgAuMvddaGBzVYLvOuSdv9pon647dZWu h9rcIDFpFdW7fZDhTFRtjLFzO055j1vzs9cvorXy gTN9TNDbBSY7CKynrrQhhoO9JGhsuTYrWmV6GXyl yuIfRZhdguLnazWdIyw1HLZpX331ASE8cTvrl2hv BRV6IKZwWWJbWeMoQp1avZTdA521HFTiBOGCTLVs xSg7WZUbuaXipyLrbUNTg244Q455f0jeVVJtmyKc bJtRikrku4cpK184EQSzuOBkfyWrLuFvRASmvQCm fFZ6EWNxAD4mqrfjRxThIQ9otzieJlQkJU0rqnk6 CbQxEE8nsokgPcDmVAuaLTTmgzapEHRhf5Biartp GF5dW9Sdv0Y6nW7zzCYqFQRkpFHpGnEsSCYmbz1m nKSjTBjtr7YdSUI6dbF0hAOxfQKjGOQnIK77Ztfx d6AbMvvaAWB0XOEfpvJra6Cuv7dvMtCbbmBzU4lp X5CjJFMhJBWjFYGsSsYembKya6Cgi2XkbZKreUg2 f9yoVTXzKHDfxQiqe0kjNDM5LAXdN9O2iBFdk1hx FUinXGFnjHO2zyxaGUhdJNGozpS1cplhTVgcKSVk wER2euisMOsmBIWfMlQ0srclPOsoAGVoWTA4GKiu e024OAE2LLpfNszcHIdxIACginXbubQbeDafVQKg SLJbIAygHYDzKEfjCMOzRASlSxLnzZrcuGijeB9v FaTqVcJkPNwgVP7lBVVsV9ppkEFvUVWuCFYfA4bx LfFlrK2xhFnrIStrrlRmZAlwkNsenRIhJBEmBGiz YXJ9 GROSS DESCRIPTION (test code = 3366) r7xohQRcBWLrhTUuWjHxUWStWKNsh9 lcZGVmbGFu [file] gBJ8BO1klrnqrlRhquXBEV0pJKXwQSlnMTZhaf4= MICROSCOPIC DESCRIPTION (test code = u8ijpPMyIVLdwTMwKvYxUQDdEPDxu5 [place] [address]) QwKfHlPpUkQvRjuibFZiRYMwHeZod4lxy691qTIw p9fqVFBwDiJ3rPIgPIFhvYDcV545BSOkMKfjh5fe l9BiSHEosHWyt4K3KMLIxxkdlIy3gWbaI59iw5V5 GfvbA3pbFSIpLRglURPiTYkmwHMnTPA9KEUgKNL9 XJeaykOarsY3FRralYLaIuK9LLf4f0pxjBqjCGUi VTO6o5obBHmlarPvIS2att0meAx3c1lgmkCeSIBb YZAwpCPPTBYrM1QocWasWo4isIa9gWhcZbmvCOL1 Ubp4GQ7twe04zwf2nZvaRGXghzpzYtI1SCldGETi wajfPJo2BVmcNMAzdCdiSEqsLWGrkxnmFTqkYFPx zYlkCUpyKBNuWywgSIirPUNzGOB9FOphq149XAR2 MJygp3twy5fxtUXsAgw0KGFiOvOoZxjyKMtus5Us r4lkEQFgyh9fFGQ5zHDgeGbbw2S1zFUbTZXboPUx pdWhIIUkvf67lGTjtEBigWRasm9jrwDbmUAynXSg UIM6kEWikaPbEGTzgULfVBFeTZ6izNDwCBHbhM2n lvtxVVKjAnQirdppYCBjbVyzxcGrTj6qcWtqIUM7 FAqnL1jgaC0pHxF6AKqdA7kvjG8cQYc9ADzinXH5 NEZcxK0tAM9uydafq1nnIdQcLK2lgjiqy9paWqVd HZ1ekto8k0xaAeTbES6iwerhw3gaGwTcPEzoATVu ynfvRBDjn3UghxksXGYlj2EoH7QxuWbfY35iaKqz H39sXHMbhJluiU6suIsuyV4xRyExIdEiUKigkSuq bGFpblxmMFxmczIwXHBsYWluXGYxXGZzMjAgUGVy Hh1nwLZoRuqtYWMtzBOqiE== [id number] 09:38:00Surgical Pathology Report Case: [id number] Authorizing Provider: Robin Mack MD Collected: 09/22/2019 03:43 PM Ordering Location: [facility] PERIOPERATIVE Received: 09/22/2019 06:13 PM SERVICES Pathologist: Elio Cox MD Specimen: Jorge tejeda A. GALLBLADDER, CHOLECYSTECTOMY: - CHRONIC CHOLECYSTITIS - NEGATIVE FOR DYSPLASIA OR MALIGNANCY Signing Pathologist Direct Phone Line: [phone] signed by Elio Cox MD on 09/26/2019 at 9:38 [id number], choledocholithiasis.Gallbladder Received in formalin labeled with the [...] trabeculated. The wall measures 0.2 cm thick. Extension Agent sections are submitted in A1-A2, with the inked cystic duct margin in A1. PA/ew Performed.Basic Metabolic [id number] 05:15:00 Test Item Value Reference Range Interpretation Comments Sodium (test code = 138 meq/L 263-502 8779-2) Potassium (test code = 4.4 meq/L 3.5-5.1 2823-3) Chloride (test code = 106 meq/L 98-107 2075-0) CO2 (test code = 25 meq/L 22-29 8-9) BUN (test code = 5 mg/dL 7-21 L 3094-0) Creatinine (test code 0.79 mg/dL 0.57-1.25 = 2160-0) Glucose (test code = 109 mg/dL 70-105 H 2345-7) Calcium (test code = 9.5 mg/dL 8.4-10.2 78622-9) EGFR (test code = 79 mL/min/1.73 [place] [address]-2) NOT ACCURATE CREATININE CLEARANCE IN PREDICTING GLOMERULAR FILTRATION RATE . ESTIMATED GFR I S NOT APPLICABLE FOR DIALYSIS PATIENTS. LUL (test code = LUL) [employer] Superintendent ID - EDASI Lab Interpretation Abnormal (test code = 76030-3) [facility] [id number] 05:15:00 Test Item Value Reference Range Interpretation Comments Protein, Total (test 6.5 See_Comment [Autom ated code = 2885-2) message] The system which generated this result transmit adolph reference range : 6.0 - 8.3 gm/dL . The reference range was not u sed to interpret th is result as normal/abnormal . Albumin (test code = 4.1 g/dL 3.5-5 72609-6) Total Bilirubin (test 0.5 mg/dL 0.2-1.2 code = 1975-2) Bilirubin, Direct 0.3 mg/dL 0.1-0.5 (test code = 1968-7) Alkaline Phosphatase 105 U/L 40-150 (test code = 6768-6) AST (test code = 27 U/L 5-34 1920-8) ALT (test code = 95 U/L 6-55 H 1742-6) LUL (test code = LUL) [employer] Superintendent ID - EDASI Lab Interpretation Abnormal (test code = 60907-8) [facility] [id number] 05:15:00 Test Item Value Reference Range Interpretation [...] code = 95 U/L 6-55 H 347) [employer] Superintendent ID - EDASIBASIC METABOLIC [id number] 05:15:00 Test Item Value Reference Range Interpretation [...] S NOT APPLICABLE FOR DIALYSIS PATIEN TS. [employer] Superintendent ID - EDASICBC with platelet count + automated [id number] 04:51:00 Test Item Value Reference Range Interpretation Comments WBC (test code = 6690-2) 9.0 See_Comment [A utomated message] The system [employer] generated this result transmitted ref erence range: 3.5 - 10 .5 K/L. The refe rence range was not u sed to interpret this result as normal/abnor mal. RBC (test code = 789-8) 4.69 See_Comment [Au tomated message] The system [employer] generated this result transmitted ref erence range: 3.93 - 5 .22 M/L. The refe rence range was not u sed to interpret this result as normal/abnor mal. MCHC (test code = 786-4) 29.4 See_Comment L [A utomated message] The system [employer] generated this result transmitted ref erence range: 32.2 - 3 5.5 GM/DL. The refe rence range was not u sed to interpret this result as normal/abnor mal. Hematocrit (test code = 38.8 % 34.1-44.9 4544-3) MCV (test code = 787-2) 82.7 fL 79.4-94.8 MCH (test code = 785-6) 24.3 pg 25.6-32.2 L RDW (test code = 788-0) 18.0 % 11.7-14.4 H Platelets (test code = 180 See_Comment [Aut omated message] 777-3) The system [employer] generated this result transmitted ref erence range: 150 - 45 0 K/CU MM. The referen ce range was not u sed to interpret this result as normal/abnor mal. MPV (test code = 10.4 fL 9.4-12.3 23064-6) nRBC (test code = 413) 0 See_Comment [Aut omated message] The system [employer] generated this result transmitted ref erence range: 0 - 0 /1 00 WBC. The refere nce range was not u sed to interpret this result as normal/abnor mal. % Neutros (test code = 79 % 429) % Lymphs (test code = 12 % 430) % Monos (test code = 7 % 431) % Eos (test code = 432) 0 % % Baso (test code = 437) 1 % # Neutros (test code = 7.11 See_Comment H [Aut omated message] 670) The system [employer] generated this result transmitted ref erence range: 1.56 - 6 .13 K/L. The refe rence range was not u sed to interpret this result as normal/abnor mal. # Lymphs (test code = 1.10 See_Comment L [Auto mated message] 414) The system [employer] generated this result transmitted ref erence range: 1.18 - 3 .74 K/L. The refe rence range was not u sed to interpret this result as normal/abnor mal. # Monos (test code = 0.65 See_Comment H [Autom ated message] 415) The system [employer] generated this result transmitted ref erence range: 0.24 - 0 .36 K/L. The refe rence range was not u sed to interpret this result as normal/abnor mal. # Eos (test code = 416) 0.03 See_Comment L [Au tomated message] The system [employer] generated this result transmitted ref erence range: 0.04 - 0 .36 K/L. The refe rence range was not u sed to interpret this result as normal/abnor mal. # Baso (test code = 417) 0.08 See_Comment [A utomated message] The system [employer] generated this result transmitted ref erence range: 0.01 - 0 .08 K/L. The refe rence range was not u sed to interpret this result as normal/abnor mal. Immature 0 % 0-1 Granulocytes-Relative (test code = 2801) Lab Interpretation (test Abnormal code = 94081-8) [facility] W/PLT COUNT & AUTO [id number] 04:51:00 Test Item Value Reference Range Interpretation [...] PERCENT (BEAKER) (test code = 2801) Manual [id number] 10:54:00 Test Item Value Reference Range Interpretation Comments % Neutros (test code = 57 % 2816) % Lymphs (test code = 29 % 2817) % Monos (test code = 7 % 2818) % Eos (test code = 2819) 1 % % Bands (test code = 6 % 0-10 2826) % Atypical Lymphs (test 2 % 0-0 [...] = 3438) LUL (test code = LUL) [employer] Superintendent ID - Marleni OverholtUser comments: Slide comments: Lab Interpretation (test Abnormal code = 35557-4) [facility](CELLAVISION MANUAL DIFF)2019-09-22 10:54:00 Test Item Value Reference [...] CONCENTRATION Adequate (CELLAVISION)(BEAKER) (test code = 3438) [employer] Superintendent ID - Marleni OverholtUser comments: Slide comments:HEPATIC [...] code = 102 U/L 6-55 H 347) [employer] Superintendent ID - EDASIBASIC METABOLIC [id number] 06:01:00 Test Item Value Reference Range Interpretation [...] S NOT APPLICABLE FOR DIALYSIS PATIEN TS. [employer] Superintendent ID - EDASIProthrombin time/[id number] 05:46:00 Test Item Value Reference Interpretation Comments Range Protime (test code = 13.8 See_Comment [Autom ated 5902-2) message] The system which generated this result transmitted reference range : 11.9 - 14.2 seconds. The reference range was not used to interpret this result as normal/abnormal . INR (test code = 1.09 See_Comment [Automated 6301-6) message] The system which generated this result transmitted reference range : <=5.90. The reference range was not used to interpret this result as normal/abnormal . LUL (test code = Effective 07/03/2018: LUL) PT Reference Range ChangeNew: 11.9-14.2 Previous: 11.7-14.7 RECOMMENDED COUMADIN/WARFARIN INR THERAPY RANGESSTANDARD DOSE: 2.0-3.0 Includes: PROPHYLAXIS for venous thrombosis, systemic embolization; TREATMENT for venous thrombosis and/or pulmonary embolus.HIGH RISK: Target INR is 2.5-3.5 for patients wiht mechanical heart valves. Lab Interpretation Normal (test code = 26359-2) [facility][id number] 05:46:00 Test Item Value Reference Range Interpretation [...] Comments WBC (test code = 6690-2) 5.0 See_Comment [A utomated message] The system Lagou generated this result transmitted ref erence range: 3.5 - 10 .5 K/L. The refe rence range was not u sed to interpret this result as normal/abnor mal. RBC (test code = 789-8) 4.26 See_Comment [Au tomated message] The system Lagou generated this result transmitted ref erence range: 3.93 - 5 .22 M/L. The refe rence range was not u sed to interpret this result as normal/abnor mal. MCHC (test code = 786-4) 30.0 See_Comment L [A utomated message] The system Lagou generated this result transmitted ref erence range: 32.2 - 3 5.5 GM/DL. The refe rence range was not u sed to interpret this result as normal/abnor mal. Hematocrit (test code = 35.3 % 34.1-44.9 4544-3) MCV (test code = 787-2) 82.9 fL 79.4-94.8 MCH (test code = 785-6) 24.9 pg 25.6-32.2 L RDW (test code = 788-0) 17.7 % 11.7-14.4 H Platelets (test code = 179 See_Comment [Aut omated message] 517-3) The system Lagou generated this result transmitted ref erence range: 150 - 45 0 K/CU MM. The referen ce range was not u sed to interpret this result as normal/abnor mal. MPV (test code = 11.3 fL 9.4-12.3 73997-6) nRBC (test code = 413) 0 See_Comment [Aut omated message] The system Lagou generated this result transmitted ref erence range: 0 - 0 /1 00 WBC. The refere nce range was not u sed to interpret this result as normal/abnor mal. Lab Interpretation (test Abnormal code = 58636-1) [facility] WITH PLATELET COUNT + MANUAL [id number] 05:29:00 Test Item Value Reference Range Interpretation [...] (test code = 413) Type and screen, [id number] 19:19:00 Test Item Value Reference Range Interpretation Comments ABO/RH AUTOMATED (BEAKER) (test O POSITIVE code = 2260) Ab Scrn (test code = 890-4) NEGATIVE [place] [address], [id number] 18:30:00 Test Item Value Reference Range Interpretation Comments Free T4 (test code = 3024-7) 0.67 ng/dL 0.7-1.48 L LUL (test code = LUL) [employer] ID - DB Lab Interpretation (test Abnormal code = 25449-7) [place] [address], [id number] 18:30:00 Test Item Value Reference Range Interpretation Comments FREE T4 (BEAKER) (test code = 655) 0.67 ng/dL 0.70-1.48 L [employer] Superintendent ID - DBHEPATIC FUNCTION [id number] 07:34:00 Test Item Value Reference Range Interpretation [...] code = 124 U/L 6-55 H 347) [employer] Superintendent ID - PIAYA LBASIC METABOLIC [id number] 07:34:00 Test Item Value Reference Range Interpretation [...] S NOT APPLICABLE FOR DIALYSIS PATIEN TS. [employer] Superintendent ID - PIAYA LComprehensive metabolic [id number] 07:34:00 Test Item Value Reference Range Interpretation Comments Protein, Total (test 5.3 See_Comment L [Autom ated code = 2885-2) message] The system which generated this result transmit adolph reference range : 6.0 - 8.3 gm/dL . The reference range was not u sed to interpret th is result as normal/abnormal . Albumin (test code = 3.3 g/dL 3.5-5 L 52625-0) Alkaline Phosphatase 122 U/L 40-150 (test code = 6768-6) Total Bilirubin (test 0.5 mg/dL 0.2-1.2 code = 1974-2) Sodium (test code = 138 meq/L 704-942 2353-2) Potassium (test code 3.8 meq/L 3.5-5.1 = 2823-3) Chloride (test code = 112 meq/L 98-107 H 2075-0) CO2 (test code = 19 meq/L 22-29 L 8-9) BUN (test code = 10 mg/dL 7-21 3094-0) Creatinine (test code 0.74 mg/dL 0.57-1.25 = 2160-0) Glucose (test code = 74 mg/dL 70-105 2345-7) Calcium (test code = 8.0 mg/dL 8.4-10.2 L 67582-1) AST (test code = 33 U/L 5-34 1920-8) ALT (test code = 179 U/L 6-55 H 1742-6) EGFR (test code = 85 mL/min/1.73 [place] [address]-5) NOT ACCURATE CREATININE CLEARANCE IN PREDICTING GLOMERULAR FILTRATION RATE . ESTIMATED GFR I S NOT APPLICABLE FOR DIALYSIS PATIEN TSVenkatesh LUL (test code = LUL) [employer] Superintendent ID - LORELEI Mercedes Lab Interpretation Abnormal (test code = 55081-4) [facility] CenterCOM[facility] [id number] 07:34:00 Test Item Value Reference Range Interpretation [...] S NOT APPLICABLE FOR DIALYSIS PATIEN TS. [employer] Superintendent ID - LORELEI [id number] 07:12:00 Test Item Value Reference Range Interpretation Comments Ferritin (test code = 8.29 ng/mL 5-275 2276-4) LUL (test code = LUL) [employer] Superintendent ID - LORELEI M Lab Interpretation (test Normal code = 47134-8) [facility], [id number] 07:12:00 Test Item Value Reference Range Interpretation Comments FREE T4 (BEAKER) (test code = 655) 0.49 ng/dL 0.70-1.48 L [employer] Superintendent ID - LORELEI [id number] 07:12:00 Test Item Value Reference Range Interpretation Comments FERRITIN (BEAKER) (test code = 8.29 ng/mL 5.00-275.00 361) [employer] Superintendent ID - LORELEI Rupa, TIBC, % sat. (without ferritin)2019-09-20 06:49:00 Test Item Value Reference Range Interpretation Comments Iron (test code = 2498-4) 20.0 ug/dL 40-160 L TIBC (test code = 2500-7) 305 ug/dL 250-450 Iron % Saturation (test 7 % 20-55 L code = 2502-3) LUL (test code = LUL) [employer] Superintendent ID - LORELEI M Lab Interpretation (test Abnormal code = 30374-2) [facility] Center[facility], [facility]BC, % SAT. (WITHOUT FERRITIN)2019-09-20 06:49:00 Test Item Value Reference Range Interpretation Comments IRON (BEAKER) (test code = 547) 20.0 ug/dL 40.0-160.0 L TOTAL IRON BINDING CAPACITY 305 ug/dL 250-450 (BEAKER) (test code = 769) IRON % SATURATION (2) (BEAKER) 7 % 20-55 L (test code = 2590) [employer] Superintendent ID - LORELEI MCBC (Hemogram only)2019-09-20 06:23:00 Test Item Value Reference Range Interpretation Comments WBC (test code = 6690-2) 6.0 See_Comment [A utomated message] The system Lagou generated this result transmitted ref erence range: 3.5 - 10 .5 K/L. The refe rence range was not u sed to interpret this result as normal/abnor mal. RBC (test code = 789-8) 4.27 See_Comment [Au tomated message] The system Lagou generated this result transmitted ref erence range: 3.93 - 5 .22 M/L. The refe rence range was not u sed to interpret this result as normal/abnor mal. MCHC (test code = 786-4) 29.8 See_Comment L [A utomated message] The system Lagou generated this result transmitted ref erence range: 32.2 - 3 5.5 GM/DL. The refe rence range was not u sed to interpret this result as normal/abnor mal. Hematocrit (test code = 34.9 % 34.1-44.9 4544-3) MCV (test code = 787-2) 81.7 fL 79.4-94.8 MCH (test code = 785-6) 24.4 pg 25.6-32.2 L RDW (test code = 788-0) 17.3 % 11.7-14.4 H Platelets (test code = 184 See_Comment [Aut omated message] 777-3) The system Lagou generated this result transmitted ref erence range: 150 - 45 0 K/CU MM. The referen ce range was not u sed to interpret this result as normal/abnor mal. MPV (test code = 10.7 fL 9.4-12.3 33439-8) nRBC (test code = 413) 0 See_Comment [Aut omated message] The system Lagou generated this result transmitted ref erence range: 0 - 0 /1 00 WBC. The refere nce range was not u sed to interpret this result as normal/abnor mal. Lab Interpretation (test Abnormal code = 16731-5) [facility] (HEMOGRAM ONLY)2019-09-20 06:23:00 Test Item Value Reference [...] = 413) RAD, CHEST, 1 VIEW, NON [id number] 16:03:00Reason for exam:->pre-op screening with h/o tobaccoShould [...] MDReport Verified Date/Time: 09/19/2019 16:03:48 Reading Location: [facility] C013 Transitional Reading Room XR chest 1 view portable / [id number] 16:03:00 Interface, External Ris In - 09/19/2019 [...] MDReport Verified Date/Time: 09/19/2019 16:03:48 Reading Location: [facility] C013 Transitional Reading Room [facility] (HEMOGRAM ONLY)2019-09-19 06:39:00 Test Item Value Reference [...] (BEAKER) (test code = 413) BASIC METABOLIC [id number] 06:03:00 Test Item Value Reference Range Interpretation [...] S NOT APPLICABLE FOR DIALYSIS PATIEN TS. [employer] Superintendent ID - LORELEI MABORH, [id number] 06:01:00 Test Item Value Reference Range Interpretation Comments ABO Grouping (test code = 2588) O Rh Factor (test code = 2589) POS [facility] CenterHEPAT[facility] FUNCTION [id number] 05:55:00 Test Item Value Reference Range Interpretation [...] code = 249 U/L 6-55 H 347) [employer] Superintendent ID - LORELEI MFL, [id number] 18:10:00Reason for exam:->ercp Fluoroscopic unit utilized for a procedure performed in the OR. No interpretation was requested. Refer to the operative report for findings. Refer to PACS for patient radiation dose information.FL Endoscopic Retrograde [id number] 18:10:00Interface, External Ris In - 09/18/2019 6:38 PM CDTFluoroscopic unit utilized for a procedure performed in the OR. No interpretation was requested. Refer to the operative report for findings. Referto PACS for patient radiation dose information.[facility] CenterECG 12 [id number] 14:22:38Interface, External Ris In - 09/18/2019 2:22 PM CDTVentricular Rate 51 BPMAtrial Rate 51 BPMP-R Interval 136 msQRS Duration 88 msQ-T Interval 496 msQTC Calculation(Bazett) 457 msP [place] 66 degreesR [place] 61 degreesT [place] 55 degreesSinus bradycardiaOtherwise normal ECGNo previous ECGs availableConfirmedby MD Park Roberto ([id number]) on 09/18/2019 2:22:36 [facility] (Asymptomatic ONLY)2019-09-18 09:39:00 Test Item Value Reference Range Interpretation Comments SARS-COV2/RT-PCR Negative Not Detected, (test code = Negative, See 05513-2) external report for linked test SARS-COV-2 [facility] PERFORMING LAB (test code = 62954-2) LUL (test code = Negative result for [...] of the Act. Fact Sheet for Healthcare Providers:https://www.[employer]/sites/default/f hilario/product/documents/F act_Sheet_HC_Providers_L zpm_LMGZ-ElF-0.pdf Fact Sheet for Healthcare Patients:https://www.[employer]/sites/default/fi les/product/documents/Fa ct_Sheet_Patients_Lyra_S ARS-CoV-2.pdf Performing Laboratory:[facility] [place] [address] [facility] ([facility])2019-09-18 09:39:00 Test Item Value Reference Range Interpretation Comments SARS-COV2/RT-PCR (test Negative Not Detected, Negative, code = 1373342) See external report for linked test SARS-COV-2 PERFORMING LAB [facility] (test code = 8959939) Negative result for this test determines that [...] a nasopharyngeal swab specimen collected from individuals susp ected of COVID-19 by their healthcare provider.This test [...] 564(g) of the Act.Fact Sheet for Healthcare Providers:https://www.[employer].Lanzaloya.com/sites/default/files/product/documents/Fact_Shee q_VZ_Wsxggsbqt_Wogm_HPEY-UdS-8.pdfFact Sheet for Healthcare Patients:https://www.[employer].Lanzaloya.com/sites/default/files/product/ documents/Oufp_Yryry_Litpbqyh_Affg_LHTI-NwC-3.pdfPerforming Laboratory:[facility], [place] [address]A1, [id number] 08:39:00 Test Item Value Reference Range Interpretation Comments FREE T4 (BEAKER) (test code = 655) 0.60 ng/dL 0.70-1.48 L [employer] Superintendent ID - ROSIANGTSH/Free T4 If [id number] 07:14:00 Test Item Value Reference Range Interpretation Comments TSH (test code = 8.511 See_Comment H [Automated 65647-7) message] The system which generated this result transmit adolph reference range : 0.350 - 4.940 uIU/mL. The reference range was not used to interpret this result as normal/abnormal . LUL (test code = LUL) [employer] And [employer] Superintendent ID - ROSIANG Lab Interpretation Abnormal (test code = 12923-8) [facility] CenterTSH/FREE T4 IF [id number] 07:14:00 Test Item Value Reference Range Interpretation Comments THYROID STIMULATING HORMONE 8.511 uIU/mL 0.350-4.940 H (BEAKER) (test code = 772) [employer] And Gas Superintendent ID - [facility] [id number] 06:15:00 Test Item Value Reference Range Interpretation [...] code = 427 U/L 6-55 H 347) [employer] Superintendent ID - ASBASIC METABOLIC [id number] 06:15:00 Test Item Value Reference Range Interpretation [...] S NOT APPLICABLE FOR DIALYSIS PATIEN TS. [employer] Superintendent ID - ASCBC W/PLT COUNT & AUTO [id number] 05:57:00 Test Item Value Reference Range Interpretation [...] PERCENT (BEAKER) (test code = 2801) Screen, [id number] 00:51:00 Test Item Value Reference Range Interpretation Comments Preg Test, Ur (test code = 2112-1) Negative [facility] [id number] 00:51:00 Test Item Value Reference Range Interpretation Comments TEST URINE (BEAKER) (test Negative code = 583) COMPREHENSIVE METABOLIC [id number] 18:51:00 Test Item Value Reference Range Interpretation [...] S NOT APPLICABLE FOR DIALYSIS PATIEN TS. [employer] And [employer] Superintendent ID - HEATHER CSpecimen slightly ictericCBC (HEMOGRAM [...]
[2020-07-03 12:47] LABS: Urine Blood Negative (Negative); Urine Glucose Negative (Negative); Urine Protein Negative (Negative)
[2020-07-03 13:40] LABS: Urine Bacteria NONE SEEN /HPF (<20); Urine RBC <5 /HPF (NONE SEEN)
[2020-07-03 14:06] LABS: Absolute Lymphocytes (CBC) 1.9 K/uL (0.7-4.9); Basophils % 2.5 % (0-1.3); Hematocrit 33.8 % (36.0-45.0); Lymphocytes % 26.2 % (15.3-44.8); MPV 8.6 fL (7.6-11.3); RBC Red Blood Cell Count 4.23 M/uL (3.86-4.86)
[2020-07-03 14:19] LABS: ALT/SGPT 20 U/L (12-78); AST/SGOT 17 U/L (15-37); Albumin 3.6 g/dL (3.4-5.0); Alkaline Phosphatase 59 U/L (45-117); BUN Blood Urea Nitrogen 9 mg/dL (7-18); Bicarbonate 28 mmol/L (21-32); Bilirubin Direct < 0.1 mg/dL (0-0.2); Bilirubin Total 0.2 mg/dL (0.2-1.0); Glucose Level 95 mg/dL (74-106); Lipase 87 U/L (73-393); Protein, Total 6.5 g/dL (6.4-8.2); Sodium Level 142 mmol/L (136-145)
[2020-07-03] MEDS ORDERED: ONDANSETRON 4 MG/2 ML VIAL ONE (14:19)
[2020-07-03] MEDS ORDERED: KETOROLAC 30 MG/ML INJ ONE (14:19)
--- NOTE | 2020-07-03 14:34 | RAD REPORT ---
EXAM DESCRIPTION: CT - Stone Protocol - 07/03/2020 2:08 pm CLINICAL HISTORY: Abdominal pain. Left flank pain COMPARISON: 2019 TECHNIQUE: Computed axial tomography of the abdomen pelvis was obtained without oral or IV contrast. Lack of IV and oral contrast limits evaluation of solid organs, bowel, and vessels. Coronal reformat scarlett images were obtained and reviewed. All CT scans are performed using dose optimization technique as appropriate and may include automated exposure control or mA/KV adjustment according to patient size. FINDINGS: A renal calculus is not seen. An ureteral calculus is not noted. A bladder calculus is not present. 5.1 centimeter cystic mass right kidney mildly enlarged. 1.8 centimeter cystic structure ri ght kidney unchanged. It contains a punctate posterior calcification. This could potentially represen t a caliceal diverticulum. The liver, spleen, pancreas and adrenals appear grossly normal. Cholecystectomy There is no evidence of diverticulitis. The appendix appears normal IMPRESSION: Negative for a genitourinary calculus 5.1 centimeter cystic mass right kidney mildly enlarged probably a cyst. This should be confirmed wit h nonemergent ultrasound
--- NOTE | 2020-07-03 15:22 | ER ---
Nurse's Notes [facility] Name: Rachel King Age: 44 yrs Sex: Female : 1975 Arrival Date: 07/03/2020 Time: 12:20 Bed 7 Private MD: Diagnosis: Dysuria;Abdominal and pelvic pain Presentation: 07/03 12:33 Chief complaint: Patient states: L lower groin pain radiating to the LL back, Urinary ca1 urgency and frequency since this morning. Coronavirus screen: Client denies travel out of the [place] in the last 14 days. At this time, the client does not indicate any symptoms associated with coronavirus-19. Ebola Screen: Patient negative for fever greater than or equal to 101.5 degrees Fahrenheit, and additional compatible Ebola Virus Disease symptoms Patient denies exposure to infectious person. Patient denies travel to an Ebola-affected area in the 21 days before illness onset. No symptoms or risks identified at this time. Initial Sepsis Screen: Does the patient meet any 2 criteria? No. Patient's initial sepsis screen is negative. Does the patient have a suspected source of infection? No. Patient's initial sepsis screen is negative. Risk Assessment: Do you want to hurt yourself or someone else? Patient reports no desire to harm self or others. Onset of symptoms was July 03, 2020. 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 - Social history:: Smoking status: Patient reports the use of cigarette tobacco products, smokes one-half pack cigarettes per day. Screenin:19 Abuse screen: Denies threats or abuse. Nutritional screening: No deficits noted. jd3 Tuberculosis screening: No symptoms or risk factors identified. Fall Risk Ambulatory Aid- None/Bed Rest/Nurse Assist (0 pts). Gait- Normal/Bed Rest/Wheelchair (0 pts) Mental Status- Oriented to own ability (0 pts). Total Irene Fall Scale indicates No Risk (0-24 pts). Assessment: 13:00 General: Appears in no apparent distress. uncomfortable, Behavior is calm, cooperative, jd3 appropriate for age. Pain: Complains of pain in left flank Pain radiates to left lower quadrant Quality of pain is described as aching. Neuro: Level of Consciousness is awake, alert, obeys commands, Oriented to person, place, time, situation. Cardiovascular: Denies chest pain, Capillary refill < 3 seconds Patient's skin is warm and dry. Respiratory: Airway is patent Respiratory effort is even, unlabored, Respiratory pattern is regular, symmetrical, Denies cough, shortness of breath. GI: Abdomen is round non-distended, Abd is soft and non tender X 4 quads. Reports nausea. : No signs and/or symptoms were reported regarding the genitourinary system. EENT: No signs and/or symptoms were reported regarding the EENT system. Derm: Skin is intact, Skin is dry, Skin is normal, Skin temperature is warm. Musculoskeletal: Circulation, motion, and sensation intact. Range of motion: intact in all extremities. 14:14 Reassessment: Patient appears in no apparent distress at this time. Patient and/or jd3 family updated on plan of care and expected duration. Pain level reassessed. Patient is alert, oriented x 3, equal unlabored respirations, skin warm/dry/pink. Patient states feeling better. 15:32 Reassessment: Patient appears in no apparent distress at this time. No changes from jd3 previously documented assessment. Patient and/or family updated on plan of care and expected duration. Pain level reassessed. Patient is alert, oriented x 3, equal unlabored respirations, skin warm/dry/pink. report understanding of discharge instructions, even and steady gait upon discharge. Vital Signs: 12:33 BP 122 / 76; Pulse 78; Resp 16; Temp 97.5; Pulse Ox 100% on R/A; Weight 90.72 kg (R); ca1 Height 7 ft. 6 in. (228.60 cm) (R); Pain 10/10; 15:33 BP 127 / 88; Pulse 67; Resp 16 S; Pulse Ox 99% on R/A; jd3 12:33 Body Mass Index 17.36 (90.72 kg, 228.60 cm) ca1 ED Course: 12:20 Patient arrived in ED. ds1 12:35 Triage completed. ca1 12:35 Arm band placed on right wrist. ca1 12:39 Naresh Hall PA is PHCP. jr8 12:39 Sj Membreno MD is Attending Physician. jr8 12:45 Justin Guzman RN is Primary Nurse. jd3 14:00 Inserted saline lock: 20 gauge in left antecubital area, using aseptic technique. Blood jd3 collected. 14:08 CT Stone Protocol In Process Unspecified. EDMS 14:19 Patient has correct armband on for positive identification. Bed in low position. Call jd3 light in reach. Side rails up X 1. Pulse ox on. NIBP on. 15:20 Miah Ojeda DO is Referral Physician. jr8 15:32 No provider procedures requiring assistance completed. IV discontinued, intact, jd3 bleeding controlled, No redness/swelling at site. Pressure dressing applied. Administered Medications: 14:03 Drug: TORadol - (ketorolac) 15 mg Route: IVP; Site: left antecubital; jd3 15:00 Follow up: Response: No adverse reaction jd3 14:04 Drug: Zofran (Ondansetron) 4 mg Route: IVP; Site: left antecubital; jd3 15:00 Follow up: Response: No adverse reaction jd3 Outcome: 15:20 Discharge ordered by MD. jr8 15:33 Discharged to home ambulatory, with family. jd3 15:33 Condition: stable 15:33 Discharge instructions given to patient, Instructed on discharge instructions, follow up and referral plans. medication usage, Demonstrated understanding of instructions, follow-up care, medications, Prescriptions given X 2. 15:34 Patient left the ED. jd3 Signatures: Dispatcher [employer] EDWY Josseline Goldberg ds1 Naresh Hall PA PA jr8 Justin Guzman RN RN jCora Staples RN RN ca1 Corrections: (The following items were deleted from the chart) 14:20 14:14 Reassessment: Patient appears in no apparent distress at this time. No changes jd3 from previously documented assessment. Patient and/or family updated on plan of care and expected duration. Pain level reassessed. Patient is alert, oriented x 3, equal unlabored respirations, skin warm/dry/pink. jd3
--- NOTE | 2020-07-03 15:22 | EDPHYS ---
Physician Documentation [facility] Name: Rachel King Age: 44 yrs Sex: Female : 1975 Arrival Date: 07/03/2020 Time: 12:20 Bed 7 Private MD: JEROMY Physician Sj Membreno HPI: 07/03 14:31 This 44 yrs old Female presents to ER via Ambulatory with complaints of jr8 Abdominal Pain. 14:31 The patient presents with abdominal pain in the left lower quadrant. Onset: The jr8 symptoms/episode began/occurred suddenly. The symptoms radiate to left back. Associated signs and symptoms: none. The symptoms are described as shooting. Modifying factors: The symptoms are alleviated by nothing, the symptoms are aggravated by movement. Severity of pain: At its worst the pain was moderate in the emergency department the pain is unchanged. The patient has not experienced similar symptoms in the past. The patient has not recently seen a physician. 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 - Social history:: Smoking status: Patient reports the use of cigarette tobacco products, smokes one-half pack cigarettes per day. ROS: 14:31 Eyes: Negative for injury, pain, redness, and discharge, ENT: Negative for injury, jr8 pain, and discharge, Neck: Negative for injury, pain, and swelling, Cardiovascular: Negative for chest pain, palpitations, and edema, Respiratory: Negative for shortness of breath, cough, wheezing, and pleuritic chest pain, Back: Negative for injury and pain, MS/Extremity: Negative for injury and deformity, Skin: Negative for injury, rash, and discoloration, Neuro: Negative for headache, weakness, numbness, tingling, and seizure. 14:31 Abdomen/GI: Positive for abdominal pain, Negative for nausea, vomiting, and diarrhea, abdominal cramps, abdominal distension. Exam: 14:31 Constitutional: This is a well developed, well nourished patient who is awake, alert, jr8 and in no acute distress. Cardiovascular: Regular rate and rhythm with a normal S1 and S2. No gallops, murmurs, or rubs. Normal PMI, no JVD. No pulse deficits. Respiratory: Lungs have equal breath sounds bilaterally, clear to auscultation and percussion. No rales, rhonchi or wheezes noted. No increased work of breathing, no retractions or nasal flaring. Back: No spinal tenderness. No costovertebral tenderness. Full range of motion. Skin: Warm, dry with normal turgor. Normal color with no rashes, no lesions, and no evidence of cellulitis. MS/ Extremity: Pulses equal, no cyanosis. Neurovascular intact. Full, normal range of motion. Neuro: Awake and alert, GCS 15, oriented to person, place, time, and situation. Cranial nerves II-XII grossly intact. Motor strength 5/5 in all extremities. Sensory grossly intact. Cerebellar exam normal. Normal gait. 14:31 Abdomen/GI: Inspection: obese Bowel sounds: active, all quadrants, Palpation: soft, in all quadrants, mild abdominal tenderness, in the anterior aspect of left lateral abdomen and left lower quadrant, mass, is not appreciated, rebound tenderness, is not appreciated, voluntary guarding, is not appreciated, involuntary guarding, is not appreciated, no appreciated organomegaly, Indicators: McBurney's point is not tender, Santoyo's sign is negative, Rovsing's sign is negative, Liver: tenderness, is not appreciated. Vital Signs: 12:33 BP 122 / 76; Pulse 78; Resp 16; Temp 97.5; Pulse Ox 100% on R/A; Weight 90.72 kg (R); ca1 Height 7 ft. 6 in. (228.60 cm) (R); Pain 10/10; 15:33 BP 127 / 88; Pulse 67; Resp 16 S; Pulse Ox 99% on R/A; jd3 12:33 Body Mass Index 17.36 (90.72 kg, 228.60 cm) ca1 MDM: 12:40 Patient medically screened. jr8 15:19 Data reviewed: vital signs, nurses notes, lab test result(s), radiologic studies, CT jr8 scan. Data interpreted: Pulse oximetry: on room air is 100 %. Interpretation: normal. Counseling: I had a detailed discussion with the patient and/or guardian regarding: the historical points, exam findings, and any diagnostic results supporting the discharge/admit diagnosis, lab results, radiology results, the need for outpatient follow up, a family practitioner, a urologist, to return to the emergency department if symptoms worsen or persist or if there are any questions or concerns that arise at home. Response to treatment: the patient's symptoms have markedly improved after treatment. 15:19 ED course: No evident findings on CT or labs that would explain patients particular 8 symptoms. Will keep her on NSAIDs and have her f/u with urology and FM for urinary symptoms. 07/03 12:40 Order name: Urine Microscopic Only; Complete Time: 13:44 07/03 12:47 Order name: Urine Dipstick-Ancillary EDIA 07/03 13:44 Order name: Basic Metabolic Panel; Complete Time: 14:22 07/03 13:44 Order name: CBC with Diff; Complete Time: 14:18 07/03 13:44 Order name: Hepatic Function; Complete Time: 14:22 07/03 13:44 Order name: Lipase; Complete Time: 14:22 07/03 12:40 Order name: Urine Test (obtain specimen); Complete Time: 12:45 07/03 12:40 Order name: Urine Dipstick-Ancillary (obtain specimen); Complete Time: 12:45 07/03 13:44 Order name: IV Saline Lock; Complete Time: 13:56 07/03 13:44 Order name: Labs collected and sent; Complete Time: 13:56 07/03 13:45 Order name: CT Stone Protocol; Complete Time: 14:56 Administered Medications: 14:03 Drug: TORadol - (ketorolac) 15 mg Route: IVP; Site: left antecubital; jd3 15:00 Follow up: Response: No adverse reaction jd3 14:04 Drug: Zofran (Ondansetron) 4 mg Route: IVP; Site: left antecubital; jd3 15:00 Follow up: Response: No adverse reaction jd3 Disposition: 07/03/20 15:20 Discharged to Home. Impression: Dysuria, Abdominal and pelvic pain. - Condition is Stable. - Discharge Instructions: Abdominal Pain, Adult, Dysuria. - Prescriptions for meloxicam 15 mg Oral tablet - take 1 tablet by ORAL route once daily As needed; 16 tablet. Cipro 500 mg Oral Tablet - take 1 tablet by ORAL route every 12 hours for 10 days; 20 tablet. - Medication Reconciliation Form, Thank You Letter, Antibiotic Education, Prescription Opioid Use form. - Follow up: Miah Ojeda DO; When: 5 - 6 days; Reason: Recheck today's complaints, Continuance of care, Re-evaluation by your physician. - Problem is new. - Symptoms have improved. Addendum: 07/05/2020 07:14 Co-signature as Attending Physician, Sj Membreno MD I agree with the assessment and c yee plan of care. Signatures: Dispatcher [employer] EDIA Sj Membreno MD MD cha Roszak, Josh, PA PA jr8 Justin Guzman RN RN jd3 Acob, Cora RN RN ca1 Corrections: (The following items were deleted from the chart) 07/03 15:34 15:20 07/03/2020 15:20 Discharged to Home. Impression: Dysuria; Abdominal and pelvic jd3 pain. Condition is Stable. Forms are Medication Reconciliation Form, Thank You Letter, Antibiotic Education, Prescription Opioid Use. Follow up: Miah Ojeda; When: 5 - 6 days; Reason: Recheck today's complaints, Continuance of care, Re-evaluation by your physician. Problem is new. Symptoms have improved. jr8
[2020-07-03 15:43] VITALS: TEMP 97.5
[2020-07-03 15:44] VITALS: BP 127/88; O2SAT 99
== END 2020-07-03 15:34 | disposition home or self-care (01) ==
LOC: ER 12:09
DX: R10.32 Left lower quadrant pain (principal); R10.2 Pelvic and perineal pain; R30.0 Dysuria; G89.29 Other chronic pain; F17.210 Nicotine dependence, cigarettes, uncomplicated
CPT/HCPCS: 36415; 74176; 76377; 80048; 80076; 81003; 81015; 83690; 85025; 96374; 96375; 99284; J2405

== ENCOUNTER 2022-08-15 13:14 | Emergency (ER) | payer SELFPAY ==
--- OUTSIDE RECORDS SUMMARY | 2022-08-15 13:21 | XMS REPORT | Continuity of Care Document ---
:[address] [facility] t Address [address] [facility] [address] [place] [address] Care Team Providers Name Role Phone SHARON MCINTOSH Attending Clinician Unavailable VINH MARTINEZ Attending Clinician Unavailable NE[place]ON MIN Attending Clinician Unavailable DAIN_Mayra Attending Clinician Unavailable Vinh Martinez MD Attending Clinician Sharon Mcintosh DO Attending Clinician SOLA_GLENN_Boone_L Attending Clinician Unavailable Miah Ojeda Attending Clinician [phone] Keith Tolbert MD Attending Clinician KEITH TOLBERT Attending Clinician Unavailable Doctor Unassigned, [place] De Caza Attending Clinician Unavailable Georges Zarate DO Attending Clinician VINH MARTINEZ Admitting Clinician Unavailable NE[place]ON MIN Admitting Clinician Unavailable TIERNEYON_Mayra Admitting Clinician Unavailable SOLA_JUVENALC_Boone_L Admitting Clinician Unavailable BREANNA TYLER Admitting Clinician Unavailable Payers Payer Name Policy Type Policy Number Effective Date Expiration Date S ource Problems Condition Condition Condition Status Onset Resolution Last Treating Co mments Source Name Details Category Date Date Treatment Clinician Date Chest pain Chest pain Disease Active [facility] Body mass Body Mass Problem Active 2020-02 Swe ca index 30+ Index 30+ 0-11 Comm uni - obesity - [facility] 00:00: [facility] Anxiety Anxiety Problem Active [place] 2-04 Communi 00:00: ty 00 [facility] Clinics Essential Essential Problem Active [facility] ca hypertensi Hypertensi 1-29 Co mmuni on on 00:00: ty 00 [facility] [place] Chol[place]ocho Disease Active C [facility] lithiasis lithiasis 812 [facility] Anemia Anemia Problem Active [place] 5-07 Communi 00:00: ty 00 [facility] Hypothyroi Hypothyroi Problem Active S weeny dism dism 3-20 Communi 00:00: ty 00 [facility] Left leg Left leg Disease Active Unive rs pain pain 8-17 ity of 00:00: [place] 00 [facility] Abnormal Abnormal Disease Active Overview: [facility] thyroid thyroid 09-16 TSH >100 ity of blood test [place] [facility] Lipids Lipids Disease Active [facility] abnormal abnormal 09-16 ity of 00:00: [place] 00 [facility] Branch Dysplasia Dysplasia Disease Active Overview: Univers of cervix of cervix 8 LGSIL and i ty of 00:00: HPV 00 [id number] Medical Diagnosis Branch 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 Anemia Anemia Disease Active Univers 8-06 ity of 00:00: [place] 00 [facility] Anxiety Anxiety Disease Active Univers disorder, disorder, 05 ity of unspecifie unspecifie 00:[place] anxiety d anxiety 00 Medi gian disorder disorder Branch type type Metrorrhag Metrorrhag Disease Active U nivers ia ia 8-05 ity of 00:00: [place] 00 Medical [facility] Tobacco Tobacco Disease Active Univers use use 805 ity of disorder disorder 00:00: [place] 00 [facility] Allergies, Adverse Reactions, Alerts Allergy Allergy Status Severity Reaction(s) Onset Inactive Treating Comm ents Source Name Type Date Date Clinician Codeine Propensi Active Itching [facility] pt [facility] adverse 00:00: benadryl Medical reaction 00 with med Center s CODEINE Allergy Active Itching [facility] 8-12 00:00: 00 CODEINE DRUG Active ITCHING Univers INGREDI 8-05 ity of 00:00: [place] 00 Medical Branch Codeine Propensi Active Itching 2015-0 Univer s ty to 805 ity of adverse 00:00: [place] reaction 00 Medical s Branch Codeine Allergy Active Mild Itching [place] to Communi substanc ty e Hospita l Clinics Family History Family Member Diagnosis Comments Start Date Stop Date Source Natural father Diabetes [facility] Maternal grandmother Cancer [facility] Maternal grandmother Diabetes [facility] Natural mother Diabetes [facility] Social History Social Habit Start Date Stop Date Quantity Comments Source History of tobacco Cigarette Smoker [facility] [place] [facility] History SDOH [facility] Alcohol Std Drinks Medica l Center History SDOH [facility] Alcohol Binge Medical [facility] History SDOH [facility] Transport Non-Med Medical Center History [facility] 2022-07-29 2022-07-[address] [facility] Transport Med 00:00:00 00:00:[address] History [facility] 2022-07-29 2022-07-[address] [facility] Housing Unable to 00:00:00 00:00:00 Medical Center Pay History [facility] 2022-07-29 2022-07-[address] [facility] Housing Places 00:00:00 00:00:00 Medical Ce nter Lived History [facility] 2022-07-29 2022-07-[address] [facility] Housing Homeless 00:00:00 00:00:00 Medical Center Last Year Exposure to 2022-07-18 2022-07-[address] [facility] SARS-CoV-2 (event) 00:00:00 22:56:00 Medica l Center Alcohol intake 2022-07-28 2022-07-[address] [facility] 00:[facility]:00 00:00:00 non-drinker of Medical Ce nter alcohol (finding) Tobacco use and 2020-01-28 2020-01-28 Never used Universit y of exposure 00:00:00 00:00:00 [facility] Cigarette 2019-09-18 2019-09-[address] [facility] pack-years 00:00:00 00:00:00 Medical Center Tobacco Comment 2019-09-18 2019-09-18 Pt willing to [facility] 00:00:00 00:00:00 quit as Medical Center verbalized. Cigarettes smoked 2019-09-18 2019-09-[address] [facility] current (pack per 00:00:00 00:00:00 Medical Center day) - Reported History SDOH 2019-09-17 2019-09-[address] [facility] Alcohol Frequency 00:00:00 00:00:00 Medical Center Sex Assigned At [address] [facility] 00:00:00 00:00:00 Medical Center Smoking Status Start Date Stop Date Source Heavy Tobacco Smoker [facility] Current every day smoker 2020-01-28 00:00:00 [facility] Medications Ordered Filled Start Stop Current Ordering Indication Dosage Frequency Signature Comments Components Source Medication Medication Date Date Medication? Clinician (SIG) Name Name levothyroxi 2022- No 200ug Take [address] ne 07-31- tablet [facility] (SYNTHROID, 13:22: 00:00 (200 mcg M edical LEVOTHROID) 02 :00 total) by Sudha ter 200 MCG mouth tablet Every morning on an empty stomach. nitroglycer 2023- Yes Put [address] [facility] 07-30- under [facility] (NITROSTAT) 00:00: 23:59 tongue Med ical 0.4 MG SL 00 :00 every 5min Cent er tablet as needed for chest pain.No more than 3 doses in 15min.Call 911 if pain unrelieved 5min after 1st dose. aspirin 81 2022- Yes 81mg QD Take [address] MG chewable -29 08-25 tablet (81 L ukes tablet 00:00: 23:59 mg total) Medic al 00 :00 by mouth Center daily for 30 days. famotidine 2022- Yes 20mg Q.5D Take [address] (PEPCID) 20 6-25 -25 tablet (20 L ukes MG tablet 00:00: 23:59 mg total) Me dical 00 :00 by mouth 2 Center (two) times daily for 30 days. ferrous 2022- Yes 325mg Take [address] [facility] sulfate 325 -25 -25 tablet [facility] (65 FE) MG 00:00: 23:59 (325 mg Med ical EC tablet 00 :00 total) by Cente r mouth daily with breakfast for 30 days. levothyroxi 2022- Yes 200ug Take [address] ne 07-30 tablet [facility] (SYNTHROID, 00:00: 23:59 (200 mcg M edical LEVOTHROID) 00 :00 total) by [facility]ha ter 200 MCG mouth tablet Every morning on an empty stomach for 30 days. ondansetron 2022- No 4mg Take [address] [facility] (ZOFRAN-ODT 07-30 tablet (4 Court kes ) 4 MG 00:00: 23:59 mg total) Medic al disintegrat 00 :00 by mouth Cent er ing tablet every 8 (eight) hours as needed for up to 7 days. Kenalog 40 Kenalog 40 No Kenalog 40 [place] mg/mL mg/mL 6-08 mg/mL Communi suspension suspension 11:18: suspension ty for for 46 for Hospita injectionTa injectionTa injectionT l ke 80 mg by ke 80 mg by kate 80 mg Clinics injection injection by route. route. injection route. DICLOFENAC Yes [id number] TAKE 1 U nivers 75 mg EC 5-14 TABLET BY ity of tablet 00:00: MOUTH TWICE Medical DAILY WITH Branch MEALS diclofenac Yes 75mg Take 1 Unive rs 75 mg EC 5-14 tablet by ity of tablet 00:00: mouth (two) Medical times Branch daily with meals. diclofenac 2019-02 Yes [id number] 75mg Take 1 U nivers 75 mg EC 2-23 tablet by ity of tablet 00:00: mouth (two) Medical times Branch daily with meals. diclofenac 2019-02 Yes [id number] 75mg Take 1 U nivers 75 mg EC 2-23 tablet by ity of tablet 00:00: mouth (two) Medical times Branch daily with meals. diclofenac 2019-02 Yes [id number] 75mg Take 1 U nivers 75 mg EC 2-23 tablet by ity of tablet 00:00: mouth (two) Medical times Branch daily with meals. diclofenac 2019-02- No [id number] 75mg Take 1 Univers 75 mg EC 2-23 05-14 tablet by ity o f tablet 00:00: 00:00 mouth 2 [place] 00 :00 (two) Medical times Branch daily with meals. ketorolac 2018- 2019- No 15mg 15 mg, Unive rs (TORADOL) 09-16 Slow IV ity of injection 17:00: 16:59 Push, Q6H, [place] 15 mg 00 :00 4 doses, Medical First dose Branch on Sun09/16/18 at 1200, Last dose on Sun09/17/18 at 0600, Routine
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 naproxen 2018- Yes [id number] 550mg Take 1 [facility] sodium 8-12 tablet by ity of (ANAPROX 00:00: mouth 2 [place] DS) 550 mg 00 (two) Medical tablet times Branch daily with meals. naproxen Yes [id number] 550mg Take 1 [facility] sodium 8-12 tablet by ity of (ANAPROX 00:00: mouth 2 [place] DS) 550 mg 00 (two) Medical tablet times Branch daily with meals. naproxen Yes [id number] 550mg Take 1 [facility] [place] sodium 8-12 tablet by ity of (ANAPROX 00:00: mouth 2 [place] DS) 550 mg 00 (two) Medical tablet times Branch daily with meals. naproxen 2018- Yes [id number] 550mg Take 1 [facility] [place] sodium 8-12 tablet by ity of (ANAPROX 00:00: mouth 2 [place] DS) 550 mg 00 (two) Medical tablet times Branch daily with meals. naproxen 2018- Yes [id number] 550mg Take 1 [facility] [place] sodium 8-12 tablet by ity of (ANAPROX 00:00: mouth 2 [place] DS) 550 mg 00 (two) Medical tablet times Branch daily with meals. naproxen 2018- Yes [id number] 550mg Take 1 [facility] [place] sodium 8-12 tablet by ity of (ANAPROX 00:00: mouth 2 [place] DS) 550 mg 00 (two) Medical tablet times Branch daily with meals. levothyroxi 2015-02 Yes 25ug Take 1 Univ ers ne 1-02 tablet by ity of (SYNTHROID) 00:00: mouth [place] 25 mcg 00 every Medical tablet morning. Branch Patient to take a total of 225 mcg daily. Please take this tablet in addition to your 200 mcg tablet levothyroxi 2015- Yes 25ug Take 1 Univ ers ne 1-02 tablet by ity of (SYNTHROID) 00:00: mouth [place] 25 mcg 00 every Medical tablet morning. Branch Patient to take a total of 225 mcg daily. Please take this tablet in addition to your 200 mcg tablet levothyroxi 2015-02 Yes 25ug Take 1 Univ ers ne 1-02 tablet by ity of (SYNTHROID) 00:00: mouth [place] 25 mcg 00 every Medical tablet morning. Branch Patient to take a total of 225 mcg daily. Please take this tablet in addition to your 200 mcg tablet levothyroxi 2015-02 Yes 25ug Take 1 Univ ers ne 1-02 tablet by ity of (SYNTHROID) 00:00: mouth [place] 25 mcg 00 every Medical tablet morning. Branch Patient to take a total of 225 mcg daily. Please take this tablet in addition to your 200 mcg tablet levothyroxi 2015-02 Yes 25ug Take 1 Univ ers ne 1-02 tablet by ity of (SYNTHROID) 00:00: mouth [place] 25 mcg 00 every Medical tablet morning. Branch Patient to take a total of 225 mcg daily. Please take this tablet in addition to your 200 mcg tablet levothyroxi 2015-02 Yes 25ug Take 1 Univ ers ne 1-02 tablet by ity of (SYNTHROID) 00:00: mouth [place] 25 mcg 00 every Medical tablet morning. Branch Patient to take a total of 225 mcg daily. Please take this tablet in addition to your 200 mcg tablet levothyroxi 2015-02 Yes 25ug Take 1 Univ ers ne 1-02 tablet by ity of (SYNTHROID) 00:00: mouth [place] 25 mcg 00 every Medical tablet morning. Branch Patient to take a total of 225 mcg daily. Please take this tablet in addition to your 200 mcg tablet levothyroxi 2015-02 Yes 200ug Take 1 Uni vers ne 0-30 tablet by ity of (SYNTHROID) 00:00: mouth [place] 200 mcg 00 every Medical tablet morning. Branch levothyroxi 2015-02 Yes 200ug Take 1 Uni vers ne 0-30 tablet by ity of (SYNTHROID) 00:00: mouth [place] 200 mcg 00 every Medical tablet morning. Branch levothyroxi 2015-02 Yes 200ug Take 1 Uni vers ne 0-30 tablet by ity of (SYNTHROID) 00:00: mouth [place] 200 mcg 00 every Medical tablet morning. Branch levothyroxi 2015-02 Yes 200ug Take 1 Uni vers ne 0-30 tablet by ity of (SYNTHROID) 00:00: mouth [place] 200 mcg 00 every Medical tablet morning. Branch levothyroxi 2015-02 Yes 200ug Take 1 Uni vers ne 0-30 tablet by ity of (SYNTHROID) 00:00: mouth [place] 200 mcg 00 every Medical tablet morning. Branch levothyroxi 2015-02 Yes 200ug Take 1 Uni vers ne 0-30 tablet by ity of (SYNTHROID) 00:00: mouth [place] 200 mcg 00 every Medical tablet morning. Branch levothyroxi 2015-02 Yes 200ug Take 1 Uni vers ne 0-30 tablet by ity of (SYNTHROID) 00:00: mouth [place] 200 mcg 00 every Medical tablet morning. Branch diclofenac 2016-0 Yes 75mg Take 1 Unive rs (VOLTAREN) 8-26 tablet by ity of 75 mg EC 00:00: mouth 2 [place] tablet 00 (two) Medical times Branch daily with meals. diclofenac 2016-0 Yes 75mg Take 1 Unive rs (VOLTAREN) 8-26 tablet by ity of 75 mg EC 00:00: mouth 2 [place] tablet 00 (two) Medical times Branch daily with meals. diclofenac 2016-0 Yes 75mg Take 1 Unive rs (VOLTAREN) 8-26 tablet by ity of 75 mg EC 00:00: mouth 2 [place] tablet 00 (two) Medical times Branch daily with meals. diclofenac 2016-0 Yes 75mg Take 1 Unive rs (VOLTAREN) 8-26 tablet by ity of 75 mg EC 00:00: mouth 2 [place] tablet 00 (two) Medical times Branch daily with meals. diclofenac 2016-0 Yes 75mg Take 1 Unive rs (VOLTAREN) 8-26 tablet by ity of 75 mg EC 00:00: mouth 2 [place] tablet 00 (two) Medical times Branch daily with meals. diclofenac 2016-0 Yes 75mg Take 1 Unive rs (VOLTAREN) 8-26 tablet by ity of 75 mg EC 00:00: mouth 2 [place] tablet 00 (two) Medical times Branch daily with meals. diclofenac Yes 75mg Take 1 Unive rs (VOLTAREN) 8-26 tablet by ity of 75 mg EC 00:00: mouth 2 [place] tablet 00 (two) Medical times Branch daily with meals. rosuvastati Yes [id number] 10mg Take 1 Tab Univers n (CRESTOR) 3-29 by mouth ity of 10 mg 00:00: daily. [place] tablet 00 Medical Branch lactulose Yes [id number] 15mL Take 15 mL Univers (CEPHULAC) 3-29 by mouth ity o f 10 gram/15 00:00: once daily [place] mL solution 00 as needed Med ical for Branch Constipati on. venlafaxine Yes [id number] 37.5mg Take 1 Cap Univers XR (EFFEXOR 3-29 by mouth ity of XR) 37.5 mg 00:00: daily with [place] 24 hr 00 breakfast. Medical capsule Branch rosuvastati Yes [id number] 10mg Take 1 Tab Univers n (CRESTOR) 3-29 by mouth ity of 10 mg 00:00: daily. [place] tablet 00 Medical Branch lactulose Yes [id number] 15mL Take 15 mL Univers (CEPHULAC) 3-29 by mouth ity o f 10 gram/15 00:00: once daily [place] mL solution 00 as needed Med ical for Branch Constipati on. venlafaxine Yes [id number] 37.5mg Take 1 Cap Univers XR (EFFEXOR 3-29 by mouth ity of XR) 37.5 mg 00:00: daily with [place] 24 hr 00 breakfast. Medical capsule Branch rosuvastati Yes [id number] 10mg Take 1 Tab Univers n (CRESTOR) 3-29 by mouth ity of 10 mg 00:00: daily. [place] tablet 00 Medical Branch lactulose Yes [id number] 15mL Take 15 mL Univers (CEPHULAC) 3-29 by mouth ity o f 10 gram/15 00:00: once daily [place] mL solution 00 as needed Med ical for Branch Constipati on. venlafaxine Yes [id number] 37.5mg Take 1 Cap Univers XR (EFFEXOR 3-29 by mouth ity of XR) 37.5 mg 00:00: daily with [place] 24 hr 00 breakfast. Medical capsule Branch rosuvastati Yes [id number] 10mg Take 1 Tab Univers n (CRESTOR) 3-29 by mouth ity of 10 mg 00:00: daily. [place] tablet 00 Medical Branch lactulose Yes [id number] 15mL Take 15 mL Univers (CEPHULAC) 3-29 by mouth ity o f 10 gram/15 00:00: once daily [place] mL solution 00 as needed Med ical for Branch Constipati on. venlafaxine Yes [id number] 37.5mg Take 1 Cap Univers XR (EFFEXOR 3-29 by mouth ity of XR) 37.5 mg 00:00: daily with [place] 24 hr 00 breakfast. Medical capsule Branch rosuvastati Yes [id number] 10mg Take 1 Tab Univers n (CRESTOR) 3-29 by mouth ity of 10 mg 00:00: daily. [place] tablet 00 Medical Branch lactulose Yes [id number] 15mL Take 15 mL Univers (CEPHULAC) 3-29 by mouth ity o f 10 gram/15 00:00: once daily [place] mL solution 00 as needed Med ical for Branch Constipati on. venlafaxine Yes [id number] 37.5mg Take 1 Cap Univers XR (EFFEXOR 3-29 by mouth ity of XR) 37.5 mg 00:00: daily with [place] 24 hr 00 breakfast. Medical capsule Branch rosuvastati Yes [id number] 10mg Take 1 Tab Univers n (CRESTOR) 3-29 by mouth ity of 10 mg 00:00: daily. [place] tablet 00 Medical Branch lactulose Yes [id number] 15mL Take 15 mL Univers (CEPHULAC) 3-29 by mouth ity o f 10 gram/15 00:00: once daily [place] mL solution 00 as needed Med ical for Branch Constipati on. venlafaxine Yes [id number] 37.5mg Take 1 Cap Univers XR (EFFEXOR 3-29 by mouth ity of XR) 37.5 mg 00:00: daily with [place] 24 hr 00 breakfast. Medical capsule Branch rosuvastati Yes [id number] 10mg Take 1 Tab Univers n (CRESTOR) 3-29 by mouth ity of 10 mg 00:00: daily. [place] tablet 00 Medical Branch lactulose Yes [id number] 15mL Take 15 mL Univers (CEPHULAC) 3-29 by mouth ity o f 10 gram/15 00:00: once daily [place] mL solution 00 as needed Med ical for Branch Constipati on. venlafaxine Yes [id number] 37.5mg Take 1 Cap Univers XR (EFFEXOR 3-29 by mouth ity of XR) 37.5 mg 00:00: daily with [place] 24 hr 00 breakfast. Medical capsule Branch docusate Yes [id number] 100mg Take 1 Cap Univers (COLACE) 9-29 by mouth ity of 100 mg 00:00: once daily [place] capsule 00 as needed Medical for Branch Constipati on. docusate Yes [id number] 100mg Take 1 Cap Univers (COLACE) 9- by mouth ity of 100 mg 00:00: once daily [place] capsule 00 as needed Medical for Branch Constipati on. docusate Yes [id number] 100mg Take 1 Cap Univers (COLACE) 9- by mouth ity of 100 mg 00:00: once daily [place] capsule 00 as needed Medical for Branch Constipati on. docusate Yes [id number] 100mg Take 1 Cap Univers (COLACE) 9-29 by mouth ity of 100 mg 00:00: once daily [place] capsule 00 as needed Medical for Branch Constipati on. docusate Yes [id number] 100mg Take 1 Cap Univers (COLACE) 9- by mouth ity of 100 mg 00:00: once daily [place] capsule 00 as needed Medical for Branch Constipati on. docusate Yes [id number] 100mg Take 1 Cap Univers (COLACE) 9-29 by mouth ity of 100 mg 00:00: once daily [place] capsule 00 as needed Medical for Branch Constipati on. docusate Yes [id number] 100mg Take 1 Cap Univers (COLACE) 9-29 by mouth ity of 100 mg 00:00: once daily [place] capsule 00 as needed Medical for Branch Constipati on. Augmentin Augmentin No 1 Q12H Augmentin [place] 875 mg-125 875 mg-125 875 mg-125 Communi mg tablet mg tablet mg tablet ty Take 1 Take 1 Take 1 Hospita tablet tablet tablet l every 12 every 12 every 12 Cli nics hours by hours by hours by oral route oral route oral route for 10 for 10 for 10 days. days. days. Kenalog 40 Kenalog 40 No 80mg Kenalog 40 [place] mg/mL mg/mL mg/mL Communi suspension suspension suspension ty for for for Hospita injection injection injection l Take 80 mg Take 80 mg Take 80 mg Clinics by by by injection injection injection route. route. route. levothyroxi levothyroxi No levothyrox [place] ne 125 mcg ne 125 mcg ine 125 Communi tablet TAKE tablet TAKE mcg tablet ty 2 TABLETS 2 TABLETS TAKE 2 Hos esequiel BY MOUTH BY MOUTH TABLETS BY l ONCE DAILY ONCE DAILY MOUTH ONCE Clinics IN THE IN THE DAILY IN MORNING MORNING THE MORNING diclofenac diclofenac No diclofenac [place] sodium 75 sodium 75 sodium 75 Communi mg mg mg ty tablet,rick tablet,rick tablet,del Hospita yed release yed release ayed l TAKE 1 TAKE 1 release Clinics TABLET BY TABLET BY TAKE 1 MOUTH TWICE MOUTH TWICE TABLET BY DAILY WITH DAILY WITH MOUTH MEALS PRN MEALS PRN TWICE DAILY WITH MEALS PRN ibuprofen ibuprofen No ibuprofen [place] 600 mg 600 mg 600 mg Communi tablet TAKE tablet TAKE tablet ty 1 TABLET BY 1 TABLET BY TAKE 1 Hospita MOUTH EVERY MOUTH EVERY TABLET BY l 6 HOURS 6 HOURS MOUTH Cl inics NEEDED FOR NEEDED FOR EVERY 6 PAIN PAIN HOURS NEEDED FOR PAIN levothyroxi levothyroxi No levothyrox [place] ne 150 mcg ne 150 mcg ine 150 Communi tablet 1 PO tablet 1 PO mcg tablet ty QD QD 1 PO QD Hospita l Clinics metoprolol metoprolol No 1 Q1D metoprolol [place] succinate succinate succinate Communi ER 25 mg ER 25 mg ER 25 mg ty tablet,exte tablet,exte tablet,ext Hospita nded nded ended l release 24 release 24 release 24 Clinics hr Take 1 hr Take 1 hr Take 1 tablet tablet tablet every day every day every day by oral by oral by oral route. route. route. diclofenac diclofenac No diclofenac [place] sodium 75 sodium 75 sodium 75 Communi mg mg mg ty tablet,rick tablet,rick tablet,del Hospita yed release yed release ayed l TAKE 1 TAKE 1 release Clinics TABLET BY TABLET BY TAKE 1 MOUTH TWICE MOUTH TWICE TABLET BY DAILY WITH DAILY WITH MOUTH MEALS PRN MEALS PRN TWICE DAILY WITH MEALS PRN ibuprofen ibuprofen No ibuprofen [place] 600 mg 600 mg 600 mg Communi tablet TAKE tablet TAKE tablet ty 1 TABLET BY 1 TABLET BY TAKE 1 Hospita MOUTH EVERY MOUTH EVERY TABLET BY l 6 HOURS 6 HOURS MOUTH Cl inics NEEDED FOR NEEDED FOR EVERY 6 PAIN PAIN HOURS NEEDED FOR PAIN levothyroxi levothyroxi No 1 Q1D levothyrox [place] ne 200 mcg ne 200 mcg ine 200 Communi tablet Take tablet Take mcg tablet ty 1 tablet 1 tablet Take 1 Hospi ta every day every day tablet l by oral by oral every day Clin ics route. route. by oral route. metoprolol metoprolol No metoprolol [place] succinate succinate succinate Communi ER 25 mg ER 25 mg ER 25 mg ty tablet,exte tablet,exte tablet,ext Hospita nded nded ended l release 24 release 24 release 24 Clinics hr TAKE 1 hr TAKE 1 hr TAKE 1 TABLET BY TABLET BY TABLET BY MOUTH EVERY MOUTH EVERY MOUTH DAY DAY EVERY DAY sulfamethox sulfamethox No 1 Q12H sulfametho [place] azole 800 azole 800 xazole 800 Communi mg-trimetho mg-trimetho mg-trimeth ty prim 160 mg prim 160 mg oprim 160 Hospita tablet Take tablet Take mg tablet l 1 tablet 1 tablet Take 1 Clini cs every 12 every 12 tablet hours by hours by every 12 oral route oral route hours by for 7 days. for 7 days. oral route for 7 days. cyclobenzap cyclobenzap No 1 BID cyclobenza [place] rine 5 mg rine 5 mg amy 5 mg Communi tablet Take tablet Take tablet ty 1 tablet 1 tablet Take 1 Hospi ta twice a day twice a day tablet l by oral by oral twice a Clinic s route as route as day by needed. needed. oral route as needed. diclofenac diclofenac No diclofenac [place] sodium 75 sodium 75 sodium 75 Communi mg mg mg ty tablet,rick tablet,rick tablet,del Hospita yed release yed release ayed l TAKE 1 TAKE 1 release Clinics TABLET BY TABLET BY TAKE 1 MOUTH TWICE MOUTH TWICE TABLET BY DAILY WITH DAILY WITH MOUTH MEALS as MEALS as TWICE needed needed DAILY WITH MEALS as needed levothyroxi levothyroxi No levothyrox [place] ne 200 mcg ne 200 mcg ine 200 Communi tablet TAKE tablet TAKE mcg tablet ty 1 TABLET BY 1 TABLET BY TAKE 1 Hospita MOUTH EVERY MOUTH EVERY TABLET BY l DAY DAY MOUTH Clinics EVERY DAY levothyroxi levothyroxi No 1 Q1D levothyrox [place] ne 200 mcg ne 200 mcg ine 200 Communi tablet Take tablet Take mcg tablet ty 1 tablet 1 tablet Take 1 Hospi ta every day every day tablet l by oral by oral every day Clin ics route for route for by oral 30 days. 30 days. route for 30 days. Immunizations Ordered Filled Immunization Date Status Comments [facility] e Immunization Name Name influenza, influenza, 2017-11-06 Completed [place] [facility] ty injectable, injectable, 00:00:00 Hospital Cli nics quadrivalent quadrivalent influenza, influenza, 2017-11-06 Completed [place] Communi ty injectable, injectable, 00:00:00 Hospital Cli nics quadrivalent quadrivalent influenza, influenza, 2017-11-06 Completed [place] Communi ty injectable, injectable, 00:00:00 Hospital Cli nics quadrivalent quadrivalent influenza, influenza, 2017-11-06 Completed [place] Communi ty injectable, injectable, 00:00:00 Hospital Cli nics quadrivalent quadrivalent influenza, influenza, 2017-11-06 Completed [place] Communi ty injectable, injectable, 00:00:00 Hospital Cli nics quadrivalent quadrivalent Td 2013-02-05 Completed [facility] of 00:00:00 [facility] Td 2013-02-05 Completed [facility] of 00:00:00 [facility] Td 2013-02-05 Completed [facility] of 00:00:00 [facility] Td 2013-02-05 Completed [facility] of 00:00:00 [facility] Td 2013-02-05 Completed [facility] 00:00:00 [facility] Td 2013-02-05 Completed [facility] 00:00:00 [facility] Td 2013-02-05 Completed [facility] 00:00:00 [facility] Vital Signs Vital Name Observation Time Observation Value Comments Source HEIGHT 2019-09-17 00:00:00 167.6 cm WEIGHT 2019-09-17 00:00:00 80.831 kg HEIGHT 2022-07-28 23:00:00 167.6 cm WEIGHT 2022-07-28 23:00:00 86.637 kg HEIGHT 2022-07-28 23:00:00 167.6 cm WEIGHT 2022-07-28 23:00:00 86.637 kg HEIGHT 2022-07-28 23:00:00 167.6 cm WEIGHT 2022-07-28 23:00:00 86.637 kg BP Diastolic 2022-07-13 00:00:00 72 mm[Hg] [facility] s Height 2022-07-13 00:00:00 67 [in_i] [facility] s BMI (Body Mass 2022-07-13 00:00:00 30.4 kg/m2 [facility]) [facility] s BP Systolic 2022-07-13 00:00:00 118 mm[Hg] [facility] s Body Weight 2022-07-13 00:00:00 3104 [oz_av] [facility] s BMI (Body Mass 2021-02-15 00:00:00 34.5 kg/m2 [facility]) [facility] s BP Systolic 2021-02-15 00:00:00 118 mm[Hg] [facility] s Body Weight 2021-02-15 00:00:00 3520 [oz_av] [facility] s BP Diastolic 2021-02-15 00:00:00 72 mm[Hg] [facility] s Height 2021-02-15 00:00:00 67 [in_i] [facility] s BP Diastolic 2020-11-08 00:00:00 62 mm[Hg] [facility] s Height 2020-11-08 00:00:00 67 [in_i] [facility] s BMI (Body Mass 2020-11-08 00:00:00 32.9 kg/m2 [facility]) [facility] s BP Systolic 2020-11-08 00:00:00 102 mm[Hg] [facility] s Body Weight 2020-11-08 00:00:00 3360 [oz_av] [facility] s BP Diastolic 2020-04-20 00:00:00 72 mm[Hg] [facility] s Height 2020-04-20 00:00:00 67 [in_i] [facility] s BMI (Body Mass 2020-04-20 00:00:00 29.4 kg/m2 [facility]) [facility] s BP Systolic 2020-04-20 00:00:00 128 mm[Hg] [facility] s Body Weight 2020-04-20 00:00:00 3008 [oz_av] [facility] s BP Diastolic 2020-03-05 00:00:00 88 mm[Hg] [facility] s Height 2020-03-05 00:00:00 67 [in_i] [facility] s BMI (Body Mass 2020-03-05 00:00:00 30.1 kg/m2 [facility]) [facility] s BP Systolic 2020-03-05 00:00:00 148 mm[Hg] [facility] s Body Weight 2020-03-05 00:00:00 3072 [oz_av] [facility] s Systolic blood 2020-01-28 21:10:00 118 mm[Hg] [facility]iver [facility] of [facility] Diastolic blood 2020-01-28 21:10:00 73 mm[Hg] Unive rsity of pressure [facility] Heart rate 2020-01-28 21:10:00 72 /min [facility] Systolic blood 2020-01-28 21:10:00 118 mm[Hg] Univer sity of pressure [facility] Diastolic blood 2020-01-28 21:10:00 73 mm[Hg] Unive rsity of pressure [facility] Heart rate 2020-01-28 21:10:00 72 /min [facility] HEIGHT 2019-09-17 00:00:00 167.6 cm WEIGHT 2019-09-17 00:00:00 80.831 kg Systolic blood 2018-09-16 15:00:00 115 mm[Hg] Univer sity of pressure [facility] Diastolic blood 2018-09-16 15:00:00 67 mm[Hg] [facility] Heart rate 2018-09-16 15:00:00 50 /min [facility] Respiratory rate 2018-09-16 15:00:00 15 /min [facility] Oxygen saturation in 2018-09-16 15:00:00 100 /min [facility] Arterial blood by [facility] Pulse oximetry Branch Body temperature 2018-09-16 13:28:00 37.22 Gela [facility] Body weight 2018-09-16 13:28:00 95.255 kg [facility] BMI 2018-09-16 13:28:00 33.89 kg/m2 [facility] Systolic blood 2022-07-30 11:48:00 146 mm[Hg] [facility] Diastolic blood 2022-07-30 11:48:00 72 mm[Hg] [facility] Heart rate 2022-07-30 11:48:00 55 /min [facility] Body temperature 2022-07-30 11:48:00 35.94 Gela [facility] Respiratory rate 2022-07-30 11:48:00 18 /min [facility] Oxygen saturation in 2022-07-30 11:48:00 100 /min [facility] Arterial blood by Medical Ce nter Pulse oximetry Body height 2022-07-28 23:00:00 167.6 cm [facility] Body weight 2022-07-28 23:00:00 86.637 kg [facility] BMI 2022-07-28 23:00:00 30.83 kg/m2 [facility] Procedures Procedure Date / Time Performing Source Performed Clinician NM MYOCARDIAL PERFUSION SPECT, 2022-07-[address] [facility] 10:36:00 [facility] TREADMILL 2022-07-30 Unknown, Hl7 Doctor [facility] TOLERANCE(NON-NUCLEAR 08:42:35 Medical Ce nter TREADMILL) IRON, TIBC, % SAT. (WITHOUT 2022-07-30 Sharon Mcintosh [facility] FERRITIN) 04:00:00 [facility] VITAMIN B12 2022-07-30 Sharon Mcintosh [facility] 04:00:00 [facility] BASIC METABOLIC PANEL 2022-07-[address] [facility] [address] [facility] 04:00:00 [facility] CBC W/PLT COUNT & AUTO 2022-07-[address] [facility] DIFFERENTIAL 04:00:00 [facility] CBC W/PLT COUNT & AUTO 2022-07-[address] k[facility] DIFFERENTIAL 04:00:00 [facility] HEMOGLOBIN A1C 2022-07-[address] [facility] 17:42:00 [facility] 2D ECHO W/ DOPPLER 2022-07-29 [facility], Homaira [facility] (CW/PW/COLOR) 13:30:00 [facility] TROPONIN I 2022-07-29 med, Homaira [facility] 08:00:00 [facility] SCREEN, URINE 2022-07-29 med, [facility]aira [facility] 07:48:00 [facility] RAPID DRUG SCREEN, URINE 2022-07-29 med, Homaira [facility] 07:48:00 [facility] TROPONIN I 2022-07-29 med, Homaira [facility] 05:06:00 [facility] CBC W/PLT COUNT & AUTO 2022-07-29 [facility], [facility] DIFFERENTIAL 05:06:00 [facility] BASIC METABOLIC PANEL 2022-07-[address] [facility] 05:06:00 [facility] LIPID PANEL 2022-07-[address] [facility] 05:06:00 [facility] MAGNESIUM 2022-07-[address] [facility] 05:06:00 [facility] PHOSPHORUS 2022-07-[address] [facility] 05:06:00 [facility] CBC W/PLT COUNT & AUTO 2022-07-29 med, [facility] DIFFERENTIAL 05:06:00 [facility] TROPONIN I 2022-07-29 med, Homaira [facility] 01:05:00 [facility] CREATINE KINASE (CK) 2022-07-29 med, [facility] 01:05:00 [facility] D-DIMER 2022-07-29 med, Homaira [facility] 01:05:00 [facility] TSH/FREE T4 IF INDICATED 2022-07-29 Ahmed, Homaira [facility] 01:05:00 [facility] LIPID PANEL 2022-07-29 Ahmed, Homaira [facility] 01:05:00 [facility] T4, FREE 2022-07-29 Ahmed, Homaira [facility] 01:05:00 [facility] Center FERRITIN 2022-07-[address] [facility] 01:05:00 [facility] EKG-SCANNED 2022-07-28 Provider, Default [facility] 00:00:00 Scanning [facility] Center MEDICATION HISTORY 2018-10-03 Doctor Unassigned, [facility] RECONCILIATION FORM 05:01:00 [place] [facility] TROPONIN I 2018-09-16 Georges Zarate of 15:36:00 [facility] XR CHEST 1 VW 2018-09-16 Georges Zarate of 13:52:07 [facility] LIPASE 2018-09-16 [facility] of 13:30:00 [facility] MAGNESIUM 2018-09-16 [facility] of 13:30:00 [facility] TROPONIN I 2018-09-16 [facility] of 13:30:00 [facility] COMP. METABOLIC PANEL (03297) 2018-09-16 Georges Zarate iversity of 13:30:00 [facility] CBC WITH DIFFERENTIAL 2018-09-16 Georges Zarate of 13:30:00 [facility] PROTHROMBIN TIME / INR 2018-09-16 [facility] 13:30:00 [facility] N-TERMINAL PRO-BNP 2018-09-16 Georges Zarate of 13:30:00 [facility] EKG-12 LEAD 2018-09-16 [facility] of 13:28:23 [facility] Choledocholithotripsy [facility] Cholecystectomy [facility] Operation on Hip Joint [facility] Ligation of Fallopian Tube [facility] Plan of Care Planned Activity Planned Date Details Comments Source Future Scheduled Test 2025-07-[address] [facility] 00:00:00 (procedure) [code = Medical Center 59353812] Future Scheduled Test 2022-10-06 Influenza Vaccine (#1) [facility] 00:00:00 [code = Influenza Medical Ce nter Vaccine (#1)] Future Scheduled Test 2022-02-[address] [facility] 00:00:00 (12+) [code = Medical Center DEPRESSION SCREENING (12+)] Future Scheduled Test 2020-10-31 COVID-19 VACCINE (3 - [facility] 00:00:00 Booster for Pfizer Medical C enter series) [code = COVID-19 VACCINE (3 - Booster for Pfizer series)] Future Scheduled Test 2020-09-[address] [facility] 00:00:00 Counseling and Medical Cente r Screening (12+) [code = Tobacco Cessation Counseling and Screening (12+)] Future Scheduled Test 1994 [facility] malignant neoplasm of Medica l Center cervix (procedure) [code = 292577684] Future Scheduled Test 1992 DTAP/TDAP/TD VACCINES [facility] 00:00:00 (1 - Tdap) [code = Medical C enter DTAP/TDAP/TD VACCINES (1 - Tdap)] Future Scheduled Test 1991-12-24 HEPATITIS C SCREENING [facility] 00:00:00 [code = HEPATITIS C Medical Center SCREENING] Future Scheduled Test 1979-12-24 Pneumococcal Vaccine: [facility] 00:00:00 0-64 Years (1 - PCV) Medical Center [code = Pneumococcal Vaccine: 0-64 Years (1 - PCV)] Future Scheduled Test [address] [facility] 00:00:00 (combo) [code = CT Medical C enter Colonography (combo)] Future Scheduled Test 1975 [facility] malignant neoplasm of Medica l Center colon (procedure) [code = 324266830] Future Scheduled Test 1975 [facility]00 malignant neoplasm of Medica l Center colon (procedure) [code = 561291288] Future Scheduled Test 1975 [facility] malignant neoplasm of Medica l Center colon (procedure) [code = 906343669] Future Scheduled Test 1975 [facility] malignant neoplasm of Medica l Center colon (procedure) [code = 035283392] Future Scheduled Test 1975 Sigmoidoscopy [code = CLARENCE Cortes 00:00:00 Sigmoidoscopy] Medical [facility] r Future Scheduled Test Decreased sinus Swe ca Community pressure. [code = Hospital C linics Decreased sinus pressure.] Instructions [facility] Encounters Start End Encounter Admission Attending Care Care Encounter Source Date/Time Date/Time Type Type Clinicians Facility Department ID 2022-07-30 Inpatient ER SHARON MCINTOSH [facility] [id number] [facility] 06:29:55 2022-07-29 Inpatient ER MICHELLE [facility] [id number] [facility] 11:57:22 [facility] 2020-11-10 Inpatient ER PAKO SLEAbdirashid Gastro [id number] [facility] 03:04:14 [place] 2022-08-02 2022-08-02 Outpatient ERICKSON_R [facility] [id number] [place] 00:00:00 00:00:00 [facility] 2022-08-01 2022-08-01 Outpatient ERICKSON_R [facility] [id number] [place] 00:00:00 00:00:00 627 [facility] 2022-07-28 2022-07-30 [facility] Vinh Martinez [facility] [id number] [facility] 22:58:00 13:22:00 Encounter Sharon Mcintosh [facility] 2022-07-28 2022-07-30 Inpatient ER SHARON MCINTOSH [facility] Cardiology 2 [id number] [facility] 22:58:00 13:22:00 2022-07-30 2022-07-30 Orders [facility] [id number] 00:00:00 00:00:00 Only [facility] 2022-07-28 2022-07-28 Travel [facility] [id number] [facility] 00:[facility]00 00:00:00 [facility] 2022-07-19 2022-07-19 Outpatient ERICKSON_R [facility] [id number] [place] 00:00:00 00:00:00 614 [facility] 2022-07-13 2022-07-13 Outpatient ERICKSON_R [facility] 97 - [place] 00:00:00 00:00:00 608 [facility] 2022-07-13 2022-07-13 Outpatient ERICKSON_R [facility] 97 [place] 00:00:00 00:00:00 613 [facility] 2022-07-13 2022-07-13 Turner [facility] [place] 00:00:00 00:00:00 [facility] [employer] [facility]-C: 303 Hospital - ty [facility] G, HOSPITAL Clinic s [place], [place] [facility], [address] DAIN , Ph. 2021-05-30 2021-05-30 Outpatient [id number] PRIV PRIV [id number] [facility] 09:31:00 09:31:00 ne_L [id number] Medica l 2021-02-15 2021-02-15 Outpatient ERICKSON_R [facility] 97 - [place] 10:42:00 10:42:00 111 [facility] 2021-02-15 2021-02-15 Outpatient Dain [facility] [id number] 00:00:00 00:00:00 Miah [id number] Bernardo [id number] 2021-02-15 2021-02-15 Miah [facility] [place] 00:00:00 00:00:00 Bernardo [facility] - ty DO: [address] [facility], H[facility] Clinic s [place], [place] [facility], [address] DAIN , Ph. 2021-01-19 2021-01-19 Outpatient ERICKSON_R [facility] [id number] - [place] 01:02:00 01:02:00 215 [facility] i [facility] 2021-01-19 2021-01-19 Outpatient ERICKSON_R [facility] [id number] - [place] 01:02:00 01:02:00 110 [facility] 2020-12-14 2020-12-14 Outpatient ERICKSON_R [facility] 97 - [place] 02:00:00 02:00:00 109 [facility] i [facility] 2020-11-09 2020-11-09 Outpatient ERICKSON_R [facility] [id number] [place] 01:51:00 01:51:00 005 Commun [facility] 2020-11-08 2020-11-08 Outpatient ERICKSON_R [facility] 97 - [place] 09:45:00 09:45:00 004 [facility] 2020-11-08 2020-11-08 Outpatient Dain, [facility] [id number] 00:00:00 00:00:00 Miah [id number] Adams [id number] 2020-11-08 2020-11-08 [facility] [place] 04 [place] 00:00:00 00:00:00 [facility] DO: [address] [facility] Hospit a [facility] [address], HOSPITAL Clinic s [place], [facility], [address] DAIN , Ph. [phone] 2020-06-18 2020-06-18 [facility] [id number] Univers 00:00:00 00:00:00 [facility] [id number] it y of Surgical [id number] Oskar as Specialti [id number] [place]ical [place] 198 [facility] 2020-06-18 2020-06-18 Bárbara [facility] [id number] Univers 00:00:00 00:00:00 [facility] [id number] it y of Surgical 4.2.7.2.686 Oskar as Specialti [id number] [place] dical [place] [address] [place] 2020-06-18 2020-06-18 [facility] [id number] 00:00:00 00:00:00 Keith [facility] [id number] Surgical 4.2.7.2.686 Specialti [id number] es [address] [place] 2020-06-18 2020-06-18 Telephone Madeleine [facility] [id number] 00:00:00 00:00:00 [facility] [id number] Surgical [id number] Specialti [id number] es [address] [place] 2020-04-20 2020-04-20 Outpatient ERICKSON_R [facility] [id number] [place] 12:20:00 12:20:00 316 [facility] 2020-04-20 2020-04-20 Outpatient Dain [facility] [id number] 00:00:00 00:00:00 [facility] [id number] [place] [id number] 2020-04-20 2020-04-20 [facility] [place] 16 [place] 00:00:00 00:00:00 [facility] DO: [address] Hospit a [facility] [address], HOSPITAL Clinic s [place], [facility], [address] DAIN , Ph. [phone] 2020-03-09 2020-03-09 Outpatient ERICKSON_R [facility] [id number] [place] 12:48:00 12:48:00 202 Commun i [facility] Clinics 2020-03-08 2020-03-08 Outpatient ERICKSON_R [facility] 9197 - [place] 11:43:00 11:43:00 201 Commun [facility] 2020-03-05 2020-03-05 Outpatient ERICKSON_R [facility] 9197 - [place] 05:05:00 05:05:00 129 Commun i ty [facility] Clinics 2020-03-05 2020-03-05 [facility] [id number] 00:00:00 00:00:00 Miah [id number] Bernardo [id number] 2020-03-05 2020-03-05 [facility] [place] 00:00:00 00:00:00 [facility] DO: [address] Hospit a [facility] l [address], HOSPITAL Clinic s [place], [place] [facility], [address] DAIN , Ph. 2020-01-28 2020-01-28 [facility] [id number] Univers 15:21:05 23:59:00 Encounter Keith Acuna [facility] [id number] ity of Surgical [id number] Oskar as Specialti [id number] [place] dical [place] 809 [facility] 2020-01-28 2020-01-28 Outpatient R [facility] [id number] Univers 15:30:00 15:30:00 KEITH ity of [facility] 2020-01-28 2020-01-28 Office [facility] [id number] [facility] 14:57:23 15:28:32 Visit Keith Jean [id number] it y of Surgical 4.2.7.2.686 Oskar as Specialti [id number] [place]ical [place] 198 [facility] 2020-01-28 2020-01-28 Office [facility] [id number] 14:57:23 15:28:32 Visit Keith Acuna [facility] [id number] Surgical [id number] Specialti [id number] [address] 2018-10-03 2018-10-03 Orders Doctor ARNOLD [id number] Univers 00:00:00 00:00:00 Only Unassigned, ABRIL [id number] ity of [place] [facility] 4.2.7.2.686 Oskar as [id number] [facility] [address] 2018-09-16 2018-09-16 Emergency , [facility] [id number] [facility] 08:27:28 11:43:00 Georges Finnegan [id number] i Bess[place] 4.2.7.2.686 [place] [id number] [facility] [address] Results Test Description Test Time Test Comments Results Result [facility] e Comments NM MYOCARDIAL 2022-07-31 PERFUSION SPECT, 13:36:10 PHARM [facility] CENTERName: REESE HA : 1975 Sex: F PROCEDURE: Myocardial Perfusion Imaging with Pharmacologic StressPHARMACOLOGIC INDICATION: Reason for pharmacologic stress is elevatedtroponin and dyspnea on exertion.PROTOCOL:This was a one day study and the imaging sequence was rest/stress. Tomographic (SPECT) myocardial perfusion imaging was performed supine atrest 105 minutes after the intravenous injection of 11 mCi Tc-99msestamibi. During Lexiscan (regadenoson) stress, the patient wasinjected with 32 mCi Tc-99m sestamibi intravenously. Gated post-stressimaging was performed supine and prone 45 minutes after stress.Pharmacologic stress testing was performed with the intravenousinjection of 0.4 mg Lexiscan within 10 seconds. The patient's heart rate went from 55 beats/minute at rest to 82beats/minute during stress. The blood pressure went from 143/73 mm Hg at rest to 111/55 mm Hg duringstress, which is a normal response to pharmacologic stress. The patient did not complain of chest pain at rest. The patient did notcomplain of chest pain during stress. The resting electrocardiogram (ECG) showed sinus bradycardia and did notdemonstrate any ST-segment changes during stress. FINDINGS:The overall quality of the study is good. Perfusion SPECT images at rest and stress show normal tracerdistribution in the left ventricular myocardium. The left ventricular (LV) cavity appears normal. The right ventricular(RV) cavity appears normal. The left ventricular ejection fraction (EF) is normal at 55%.Gated SPECT images show normal LV wall motion and thickening. IMPRESSION:Normal myocardial perfusion stress test. Overall left ventricular function is normal without regional wall motionabnormalities. . Electronically Signed By: London Grubbs07/31/2022 13:38 CDTWorkstation Name: [id number] VITAMIN B12 2022-07-30 09:49:03 Test Item Value Reference Range Interpretation Comme nts VITAMIN B12 (BEAKER) (test code = 774) 255 pg/mL 213-816 Life Skills Instructor ID - mmIRON, TIBC, % SAT. (WITHOUT FERRITIN)2022-07-30 09:22:12 Test Item Value Reference Range Interpretation Comments IRON (BEAKER) (test code = 547) 119.0 ug/dL 40.0-160.0 TOTAL IRON BINDING CAPACITY 373 ug/dL 250-450 (BEAKER) (test code = 769) IRON % SATURATION (2) (BEAKER) 32 % 20-55 (test code = 2590) Life Skills Instructor ID - mmCBC W/PLT COUNT & AUTO [id number] 04:43:05 Test Item Value Reference Range Interpretation Comments WHITE BLOOD CELL COUNT (BEAKER) 8.6 K/ L 4.0-10.0 (test code = 775) RED BLOOD CELL COUNT (BEAKER) 4.41 M/ L 4.00-5.00 (test code = 761) HEMOGLOBIN (BEAKER) (test code = 10.6 GM/DL 12.0-15.5 L 410) HEMATOCRIT (BEAKER) (test code = 35.1 % 36.0-46.0 L 411) MEAN CORPUSCULAR VOLUME (BEAKER) 80 fL 82-99 L (test code = 753) MEAN CORPUSCULAR HEMOGLOBIN 24.0 pg 27.0-33.0 L (BEAKER) (test code = 751) MEAN CORPUSCULAR HEMOGLOBIN CONC 30.2 GM/DL 32.0-36.0 L (BEAKER) (test code = 752) RED CELL DISTRIBUTION WIDTH 15.6 % 12.0-15.0 H (BEAKER) (test code = 412) PLATELET COUNT (BEAKER) (test 277 K/CU MM 150-430 code = 756) MEAN PLATELET VOLUME (BEAKER) 10.0 fL 6.0-11.5 (test code = 754) NUCLEATED RED BLOOD CELLS 0 /100 WBC 0-0 (BEAKER) (test code = 413) NEUTROPHILS RELATIVE PERCENT 69 % (BEAKER) (test code = 429) LYMPHOCYTES RELATIVE PERCENT 21 % (BEAKER) (test code = 430) MONOCYTES RELATIVE PERCENT 7 % (BEAKER) (test code = 431) EOSINOPHILS RELATIVE PERCENT 1 % (BEAKER) (test code = 432) BASOPHILS RELATIVE PERCENT 1 % (BEAKER) (test code = 437) NEUTROPHILS ABSOLUTE COUNT 5.92 K/ L 1.80-8.00 (BEAKER) (test code = 670) LYMPHOCYTES ABSOLUTE COUNT 1.80 K/ L 1.48-4.50 (BEAKER) (test code = 414) MONOCYTES ABSOLUTE COUNT (BEAKER) 0.61 K/ L 0.00-1.30 (test code = 415) EOSINOPHILS ABSOLUTE COUNT 0.12 K/ L 0.00-0.50 (BEAKER) (test code = 416) BASOPHILS ABSOLUTE COUNT (BEAKER) 0.08 K/ L 0.00-0.20 (test code = 417) IMMATURE GRANULOCYTES-RELATIVE 0.90 % 0.00-0.00 H PERCENT (BEAKER) (test code = 2801) BASIC METABOLIC [id number] 04:41:52 Test Item Value Reference Range Interpretation Comments SODIUM (BEAKER) 139 meq/L 135-148 (test code = 381) POTASSIUM 3.8 meq/L 3.6-5.5 (BEAKER) (test code = 379) CHLORIDE (BEAKER) 109 meq/L 98-106 H (test code = 382) CO2 (BEAKER) 24 meq/L 20-29 (test code = 355) BLOOD UREA 10 mg/dL 10-26 NITROGEN (BEAKER) (test code = 354) CREATININE 0.77 mg/dL 0.50-1.20 (BEAKER) (test code = 358) GLUCOSE RANDOM 87 mg/dL 70-110 (BEAKER) (test code = 652) CALCIUM (BEAKER) 8.4 mg/dL 8.5-10.5 L (test code = 697) EGFR (BEAKER) 95 Interpretatio n of eGFR (test code = mL/min/1.73 values Stage De scription 1092) sq m Result G1 Yari l or high >=90 G2 Mildly decreased 60-89 G3a Mildl y to moderately 45-5 9 G3b Moderately to s everely 30-44 G4 Severl y decreased 15-29 G5 Kidney failure <15Reported eGF R is based on the CKD-EPI 2020 equation that d oes not use a race coefficientEsti mated GFR is not as accur ate as Creatinine Sylvia yessy in predicting glom erular filtration rate . Estimated GFR is not appl icable for dialysis patien ts Life Skills Instructor ID - [id number] 18:12:31 Test Item Value Reference Range Interpretation Comments MAGNESIUM (BEAKER) (test code = 2.1 mg/dL 1.5-3.0 627) Life Skills Instructor ID - [id number] 18:12:31 Test Item Value Reference Range Interpretation Comments PHOSPHORUS (BEAKER) (test code = 4.0 mg/dL 2.5-4.5 604) Life Skills Instructor ID - [id number] [id number] 18:00:55 Test Item Value Reference Range Interpretation Comments HEMOGLOBIN A1C (BEAKER) (test code = 5.3 % 4.3-6.1 368) Life Skills Instructor ID - [id number] 17:58:51 Test Item Value Reference Range Interpretation Comments FERRITIN (BEAKER) (test code = 4.26 ng/mL 10.00-291.00 L 361) Life Skills Instructor ID - [id number] 17:47:19 Test Item Value Reference Range Interpretation Comments TRIGLYCERIDES (BEAKER) (test code = 140 mg/dL 540) CHOLESTEROL (BEAKER) (test code = 190 mg/dL 631) HDL CHOLESTEROL (BEAKER) (test code 39 mg/dL = 976) LDL CHOLESTEROL CALCULATED (BEAKER) 123 mg/dL (test code = 633) Triglyceride Reference Range: Low Risk <150 Borderline 150-199 High Risk 200-499 Very High Risk >=500Cholesterol Reference Range: Low Risk <200 Borderline 200-239 High Risk >240HDL Cholesterol Reference Range: Low Risk >=60 High Risk <40LDL Cholesterol Reference Range: Optimal <100 Near Optimal 100-129 Borderline 130-159 High 160-189 Very High >=190 Life Skills Instructor ID - [id number] drug screen, [id number] 08:51:09 Test Item Value Reference Range Interpretation Comments Barbiturate Screen Negative Negative (test code = 75224-1) Benzodiazepine Screen Negative Negative (test code = 50120-4) Cocaine (Metab.) Negative Negative Screen (test code = 3397-7) Opiate Screen (test Negative Negative code = 37137-3) Cannabinoid Screen Positive Negative A (test code = 85745-4) Amph/Methamph Screen Negative Negative (test code = 10319-3) Phencyclidine Screen Negative Negative (test code = 71503-1) pH, UA (test code = 6.0 5.0-8.0 5803-2) LUL (test code = LUL) DRUG CUTOFF CONC.Cocaine 300 ng/mLCannabinoid 50 ng/mLBenzodiazepine 200 ng/mLBarbiturate 200 ng/mLPhencyclidine 25 ng/mLOpiate 300 ng/mLAmphetamine/ 1000 ng/mL Methamphetamine This assay provides an unconfirmed qualitative test result for the clinical management of patients in emergency situations. Chain of custody not maintained. Some gdpe-eoz-qyeuffu medications, as well as adulterants, may cause inaccurate results. Clinical correlation should be applied. A more comprehensive drug screen or confirmation of a detected drug may be performed upon request.Life Skills Instructor ID - [id number] Lab Interpretation Abnormal (test code = 37893-3) [facility], [id number] 08:51:09 Test Item Value Reference Range Interpretation Comments BARBITURATE URINE (BEAKER) (test Negative Negative code = 725) BENZODIAZEPINE SCREEN URINE (BEAKER) Negative Negative (test code = 726) COCAINE (METAB.) SCREEN (BEAKER) Negative Negative (test code = 1164) OPIATE SCREEN URINE (BEAKER) (test Negative Negative code = 734) CANNABINOID SCREEN URINE (BEAKER) Positive Negative A (test code = 727) AMPH/METHAMPH SCREEN (BEAKER) (test Negative Negative code = 1438) PHENCYCLIDINE SCREEN URINE (BEAKER) Negative Negative (test code = 608) PH UA (BEAKER) (test code = 467) 6.0 5.0-8.0 DRUG CUTOFF CONC.Cocaine 300 ng/mLCannabinoid 50 ng/mLBenzodiazepine 200 ng/mLBarbiturate 200 ng/mLPhencyclidine 25 ng/mLOpiate 300 ng/mLAmphetamine/ 1000 ng/mL MethamphetamineThis assay provides an unconfirmed qualitative test result for the clinical management of patients in emergency situations. Chain of custody not maintained. Some pvyw-nnp-aprouob medications, as well as adulterants, may cause inaccurate results. Clinical correlation should be applied. A more comprehensive drug screen or confirmation of a detected drug may be performed upon request.Life Skills Instructor ID - [id number] 08:40:06 Test Item Value Reference Range Interpretation Comments TROPONIN I (BEAKER) (test code = 0.06 ng/mL 0.00-0.03 H 397) Troponin I (TnI) levels must be interpreted in the context of the presenting symptoms and the clinical findings. Elevated TnI levels indicate myocardial damage, but are not specific for ischemic heart disease. Elevated TnI levels are seen in patients with other cardiac conditions (including myocarditis and congestive heart failure), and slight TnI elevations occur in patients with other conditions, including sepsis, renal failure, acidosis, acute neurological disease, and persistent tachyarrhythmia.Life Skills Instructor ID - [id number] Screen, [id number] 08:24:03 Test Item Value Reference Range Interpretation Comments Preg Test, Ur (test code = 2112-1) Negative Negative Lab Interpretation (test code = Normal 99569-3) [facility] CenterPREGNANCY SCREEN, [id number] 08:24:03 Test Item Value Reference Range Interpretation Comments TEST URINE (BEAKER) (test Negative Negative code = 583) TROPONIN [id number] 05:41:00 Test Item Value Reference Range Interpretation Comments TROPONIN I (BEAKER) (test code = 0.07 ng/mL 0.00-0.03 H 397) Troponin I (TnI) levels must be interpreted in the context of the presenting symptoms and the clinical findings. Elevated TnI levels indicate myocardial damage, but are not specific for ischemic heart disease. Elevated TnI levels are seen in patients with other cardiac conditions (including myocarditis and congestive heart failure), and slight TnI elevations occur in patients with other conditions, including sepsis, renal failure, acidosis, acute neurological disease, and persistent tachyarrhythmia.Life Skills Instructor ID - DIANA BBASIC METABOLIC [id number] 05:36:37 Test Item Value Reference Range Interpretation Comments SODIUM (BEAKER) 140 meq/L 135-148 (test code = 381) POTASSIUM 4.1 meq/L 3.6-5.5 (BEAKER) (test code = 379) CHLORIDE (BEAKER) 111 meq/L 98-106 H (test code = 382) CO2 (BEAKER) 22 meq/L 20-29 (test code = 355) BLOOD UREA 9 mg/dL 10-26 L NITROGEN (BEAKER) (test code = 354) CREATININE 0.78 mg/dL 0.50-1.20 (BEAKER) (test code = 358) GLUCOSE RANDOM 86 mg/dL 70-110 (BEAKER) (test code = 652) CALCIUM (BEAKER) 8.7 mg/dL 8.5-10.5 (test code = 697) EGFR (BEAKER) 94 Interpretati on of eGFR (test code = mL/min/1.73 values Stage De scription 1092) sq m Result G1 Yari l or high >=90 G2 Mildly decreased 60-89 G3a Mildl y to moderately 45-5 9 G3b Moderately to s everely 30-44 G4 Severl y decreased 15-29 G5 Kidney failure <15Reported eGF R is based on the CKD-EPI 2020 equation that d oes not use a race coefficientEsti mated GFR is not as accur ate as Creatinine Sylvia yessy in predicting glom erular filtration rate . Estimated GFR is not appl icable for dialysis patien ts Life Skills Instructor ID - DIANA BCBC W/PLT COUNT & AUTO [id number] 05:29:24 Test Item Value Reference Range Interpretation Comments WHITE BLOOD CELL COUNT (BEAKER) 8.2 K/ L 4.0-10.0 (test code = 775) RED BLOOD CELL COUNT (BEAKER) 4.28 M/ L 4.00-5.00 (test code = 761) HEMOGLOBIN (BEAKER) (test code = 9.9 GM/DL 12.0-15.5 L 410) HEMATOCRIT (BEAKER) (test code = 34.1 % 36.0-46.0 L 411) MEAN CORPUSCULAR VOLUME (BEAKER) 80 fL 82-99 L (test code = 753) MEAN CORPUSCULAR HEMOGLOBIN 23.1 pg 27.0-33.0 L (BEAKER) (test code = 751) MEAN CORPUSCULAR HEMOGLOBIN CONC 29.0 GM/DL 32.0-36.0 L (BEAKER) (test code = 752) RED CELL DISTRIBUTION WIDTH 15.8 % 12.0-15.0 H (BEAKER) (test code = 412) PLATELET COUNT (BEAKER) (test 274 K/CU MM 150-430 code = 756) MEAN PLATELET VOLUME (BEAKER) 9.5 fL 6.0-11.5 (test code = 754) NUCLEATED RED BLOOD CELLS 0 /100 WBC 0-0 (BEAKER) (test code = 413) NEUTROPHILS RELATIVE PERCENT 60 % (BEAKER) (test code = 429) LYMPHOCYTES RELATIVE PERCENT 27 % (BEAKER) (test code = 430) MONOCYTES RELATIVE PERCENT 9 % (BEAKER) (test code = 431) EOSINOPHILS RELATIVE PERCENT 2 % (BEAKER) (test code = 432) BASOPHILS RELATIVE PERCENT 1 % (BEAKER) (test code = 437) NEUTROPHILS ABSOLUTE COUNT 4.95 K/ L 1.80-8.00 (BEAKER) (test code = 670) LYMPHOCYTES ABSOLUTE COUNT 2.22 K/ L 1.48-4.50 (BEAKER) (test code = 414) MONOCYTES ABSOLUTE COUNT (BEAKER) 0.74 K/ L 0.00-1.30 (test code = 415) EOSINOPHILS ABSOLUTE COUNT 0.17 K/ L 0.00-0.50 (BEAKER) (test code = 416) BASOPHILS ABSOLUTE COUNT (BEAKER) 0.10 K/ L 0.00-0.20 (test code = 417) IMMATURE GRANULOCYTES-RELATIVE 0.70 % 0.00-0.00 H PERCENT (BEAKER) (test code = 2801) T4, [id number] 03:24:05 Test Item Value Reference Range Interpretation Comments FREE T4 (BEAKER) (test code = 655) 0.87 ng/dL 0.90-1.80 L Life Skills Instructor ID - GEMMA BTSH/FREE T4 IF [id number] 02:03:21 Test Item Value Reference Range Interpretation Comments THYROID STIMULATING HORMONE 18.119 uIU/mL 0.350-5.500 H ([facility]) (test code = 772) Life Skills Instructor ID Maria E ORTIZ BTROPONIN [id number] 01:48:31 Test Item Value Reference Range Interpretation Comments TROPONIN I (ASTRID) (test code = 0.09 ng/mL 0.00-0.03 H 397) Troponin I (TnI) levels must be interpreted in the context of the presenting symptoms and the clinical findings. Elevated TnI levels indicate myocardial damage, but are not specific for ischemic heart disease. Elevated TnI levels are seen in patients with other cardiac conditions (including myocarditis and congestive heart failure), and slight TnI elevations occur in patients with other conditions, including sepsis, renal failure, acidosis, acute neurological disease, and persistent tachyarrhythmia.Life Skills Instructor ID - DIANA BLIPID PANEL 2022-07-29 01:45:10 Test Item Value Reference Range Interpretation Comments TRIGLYCERIDES (CherryAKER) (test code = 151 mg/dL 540) CHOLESTEROL (AKER) (test code = 194 mg/dL 631) HDL CHOLESTEROL ([employer]) (test code 37 mg/dL = 976) LDL CHOLESTEROL CALCULATED ([employer]) 127 mg/dL (test code = 633) Triglyceride Reference Range: Low Risk <150 Borderline 150-199 High Risk 200- 499 Very High Risk >=500Cholesterol Reference Range: Low Risk <200 Borderline 200-239 High Risk >240HDL Cholesterol Reference Range: Low Risk >=60 High Risk <40LDL Cholesterol Reference Range: Optimal <100 Near Optimal 100-129 Borderline 130-159 High 160-189 Very High >=190 Life Skills Instructor ID - DIANA BCREATINE KINASE (CK)2022-07-29 01:44:49 Test Item Value Reference Range Interpretation Comments CREATINE KINASE TOTAL (AKER) (test 226 U/L 25-235 code = 380) Life Skills Instructor ID Maria E ORTIZ [id number] 01:40:11 Test Item Value Reference Range Interpretation Comments D-DIMER QUANTITATIVE < MG/L FEU <0.50 Final I nformation ([facility]) (test code = (Auto Output) 674) REGARDING D-DIMER RESULTS: The 98% NPV (Negative Predictive Value) for DVT/PE exclusion is 0.50 mg/LFEU as suggested by the mobile security architect and as approved by the FDA.TISSUE [id number] 09:38:00Surgical Pathology Report Case: [id number] Authorizing Provider: Jake Vyas MD Collected: 09/22/2019 03:43 PM Ordering Location: [facility] Received: 09/22/2019 06:13 PM SERVICES Pathologist: Elio Cox MD Specimen: Gallbladder A. GALLBLADDER, CHOLECYSTECTOMY: - CHRONIC CHOLECYSTITIS - NEGATIVE FOR DYSPLASIA OR MALIGNANCY Signing Pathologist Direct Phone Line: [phone] signed by Elio Cox MD on 09/26/2019 at 9:38 [id number], choledocholithi asis.Gallbladder Received in formalin labeled with the patient's name, accession number and "gallbladder" is a 6.7 x 2.1 x 1.5 cm intact gallbladder with a 0.2 cm in length x 0.2 cm in diameter attached cystic duct. The serosa is martin- yellow, smooth and hyperemic. The specimen is opened to reveal approximately 4 mL of yellow sludge-like bile. Calculi are not identified. The mucosa is martin and trabeculated. The wall measures 0.2 cm thick. Quality Control Engineer sections are submitted in A1-A2, with the inked cystic duct margin in A1. PA/ew Performed. HEPATIC FUNCTION [id number] 05:15:00 Test Item Value Reference Range Interpretation [...] code = 95 U/L 6-55 H 347) Life Skills Instructor ID - EDASIBASIC METABOLIC [id number] 05:15:00 Test Item Value Reference Range Interpretation [...] S NOT APPLICABLE FOR DIALYSIS PATIEN TS. Life Skills Instructor ID - EDASICBC W/PLT COUNT & AUTO [id number] 04:51:00 Test Item Value Reference Range Interpretation [...] 0-1 PERCENT (BEAKER) (test code = 2801) (CELLAVISION MANUAL DIFF)2019-09-22 10:54:00 Test Item Value Reference [...] CONCENTRATION Adequate (CELLAVISION)(BEAKER) (test code = 3438) Life Skills Instructor ID - Marleni OverholtUser comments: Slide comments:HEPATIC [...] code = 102 U/L 6-55 H 347) Life Skills Instructor ID - EDASIBASIC METABOLIC [id number] 06:01:00 Test Item Value Reference Range Interpretation [...] S NOT APPLICABLE FOR DIALYSIS PATIEN TS. Life Skills Instructor ID - EDASIPROTHROMBIN TIME/[id number] 05:46:00 Test Item Value Reference Range Interpretation [...] is 2.5-3.5 for patients wiht mechanical heart valves.CBC WITH PLATELET COUNT + MANUAL DIFF 2019-09-22 05:29:00 Test Item Value Reference Range [...] WBC 0-0 (BEAKER) (test code = 413) T4, [id number] 18:30:00 Test Item Value Reference Range Interpretation Comments FREE T4 (BEAKER) (test code = 655) 0.67 ng/dL 0.70-1.48 L Life Skills Instructor ID - DBHEPATIC FUNCTION [id number] 07:34:00 Test Item Value Reference Range Interpretation [...] code = 124 U/L 6-55 H 347) Life Skills Instructor ID - PIAYA LBASIC METABOLIC [id number] 07:34:00 Test Item Value Reference Range Interpretation [...] S NOT APPLICABLE FOR DIALYSIS PATIEN TS. Life Skills Instructor ID - PIAYA OMPREHENSIVE METABOLIC [id number] 07:34:00 Test Item Value Reference Range Interpretation [...] S NOT APPLICABLE FOR DIALYSIS PATIEN TS. Life Skills Instructor ID - LORELEI MT4, [id number] 07:12:00 Test Item Value Reference Range Interpretation Comments FREE T4 (BEAKER) (test code = 655) 0.49 ng/dL 0.70-1.48 L Life Skills Instructor ID - LORELIE [id number] 07:12:00 Test Item Value Reference Range Interpretation Comments FERRITIN (BEAKER) (test code = 8.29 ng/mL 5.00-275.00 361) Life Skills Instructor ID - LORELEI HEAVEN, TIBC, % SAT. (WITHOUT FERRITIN)2019-09-20 06:49:00 Test Item Value Reference Range Interpretation Comments IRON (BEAKER) (test code = 547) 20.0 ug/dL 40.0-160.0 L TOTAL IRON BINDING CAPACITY 305 ug/dL 250-450 (BEAKER) (test code = 769) IRON % SATURATION (2) (BEAKER) 7 % 20-55 L (test code = 2590) Life Skills Instructor ID - LORELEI MCBC (HEMOGRAM ONLY)2019-09-20 06:23:00 Test Item Value Reference [...] = 413) RAD, CHEST, 1 VIEW, NON [id number] 16:03:00Reason for exam:->pre-op screening with h/o tobaccoShould this be performed at the bedside?->YesFINAL REPORT TECHNIQUE: Frontal view of the chest. INDICATION: pre-op screeningwith h/o tobacco COMPARISON:None DISCUSSION:Limited evaluation due to portable technique. Lines and hardware: NoneHeart and mediastinum: UnremarkableLungs and pleura: No focal airspace consolidation. No pleural effusion. No pneumothorax.Soft tissues and bones: No acute abnormality. IMPRESSION:Negativefor acute intrathoracic process. Signed: Nader Mcneill MDReport Verified Date/Time: 09/19/2019 16:03:48 Reading Location: [address] Transitional Reading Room CBC (HEMOGRAM ONLY)2019-09-19 06:39:00 Test Item Value Reference [...] (BEAKER) (test code = 413) BASIC METABOLIC [id number] 06:03:00 Test Item Value Reference Range Interpretation [...] S NOT APPLICABLE FOR DIALYSIS PATIEN TS. Life Skills Instructor ID - LORELEI EPATIC FUNCTION [id number] 05:55:00 Test Item Value Reference Range Interpretation [...] code = 249 U/L 6-55 H 347) Life Skills Instructor SANTIAGO GUTIERREZ, [id number] 18:10:00Reason for exam:->ercp Fluoroscopic unit utilized for a procedure performed in the OR. No interpretation was requested. Refer to the operative report for findings. Refer to PACS for patient radiation dose information.SARS-COV2/RT-PCR ([facility])2019-09-18 09:39:00 Test Item Value Reference Range Interpretation Comments SARS-COV2/RT-PCR (test Negative Not Detected, Negative, code = 1749264) See external report for linked test SARS-COV-[address] [facility] (test code = 0823758) Negative result for this test determines that [...] justifying the authorization of the emergency use ofin vitro diagnostic tests for detection and/or diagnosis of COVID-19 is terminated under Section 564(b)(2) of the Act or the EUA is revoked under Section 564(g) of the Act.Fact Sheet for Healthcare Prov iders:https://www.[employer]/sites/default/files/product/documents/Fact_Sheet_HC _Wycbtpdje_Lykq_DABH-TdY-3.pdfFact Sheet for Healthcare Patients:https://www.[employer]/sites/default/files/product/docume nts/Mprc_Mmjwm_Pipeyjvw_Tpbj_DXDC-WsW-1.pdfPerforming Laboratory:[facility], [place] [address]S3, [id number] 08:39:00 Test Item Value Reference Range Interpretation Comments FREE T4 (BEAKER) (test code = 655) 0.60 ng/dL 0.70-1.48 L Life Skills Instructor ID - ROSIANGTSH/FREE T4 IF [id number] 07:14:00 Test Item Value Reference Range Interpretation Comments THYROID STIMULATING HORMONE 8.511 uIU/mL 0.350-4.940 H (BEAKER) (test code = 772) Life Skills Instructor ID - ROSIANGHEPATIC FUNCTION [id number] 06:15:00 Test Item Value Reference Range Interpretation [...] code = 427 U/L 6-55 H 347) Life Skills Instructor ID - ASBASIC METABOLIC [id number] 06:15:00 Test Item Value Reference Range Interpretation [...] S NOT APPLICABLE FOR DIALYSIS PATIEN TS. Life Skills Instructor ID - ASCBC W/PLT COUNT & AUTO [id number] 05:57:00 Test Item Value Reference Range Interpretation [...] 0-1 PERCENT (BEAKER) (test code = 2801) SCREEN, [id number] 00:51:00 Test Item Value Reference Range Interpretation Comments TEST URINE (BEAKER) (test Negative code = 583) COMPREHENSIVE METABOLIC [id number] 18:51:00 Test Item Value Reference Range Interpretation [...] S NOT APPLICABLE FOR DIALYSIS PATIEN TS. Life Skills Instructor ID - FEB CSpecimen slightly ictericCBC (HEMOGRAM ONLY)2019-09-17 18:14:00 Test [...] WBC 0-0 (BEAKER) (test code = 413) TROPONIN [id number] 16:09:00 Test Item Value Reference Range Interpretation Comments TROPONIN I (test <0.012 See_Comment [Automated code = [id number]) message] The system which generated this result transmitted reference range : <=0.034 ng/mL. The reference range was not used to interpr et this result as normal/abnormal . LUL (test code = Equal or Less than LUL) 0.034 ng/ml---Normal?Not e: Cardiac troponin begins to rise 3-4 hours after the onset of ischemia. Repeat in 4-6 hours if the sample was drawn within 3-4 hours of the onset of the symptom and found normal. Between 0.035 and 0.120 ng/mL--- Borderline. Questionable myocardial injury or necrosis?Note: Serial measurement may be necessary to confirm or exclude the diagnosis of myocardial injury or necrosis; Clinical correlation (symptoms, EKGs, imaging studies, and others) required; Repeat in 4-6 hours if clinically indicated.? Equal or Higher than 0.121 ng/mL---Abnormal. Myocardial Injury or Necrosis Likely? Biotin has been reported to cause a negative bias, interpret results relative to patient's use of biotin.? ? Lab Interpretation Normal (test code = 83473-5) [facility] [id number] 14:10:00 Test Item Value Reference Range Interpretation Comments TROPONIN I (test <0.012 See_Comment [Automated code = [id number]) message] The system which generated this result transmitted reference range : <=0.034 ng/mL. The reference range was not used to interpr et this result as normal/abnormal . LLU (test code = Equal or Less than LUL) 0.034 ng/ml---Normal?Not e: Cardiac troponin begins to rise 3-4 hours after the onset of ischemia. Repeat in 4-6 hours if the sample was drawn within 3-4 hours of the onset of the symptom and found normal. Between 0.035 and 0.120 ng/mL--- Borderline. Questionable myocardial injury or necrosis?Note: Serial measurement may be necessary to confirm or exclude the diagnosis of myocardial injury or necrosis; Clinical correlation (symptoms, EKGs, imaging studies, and others) required; Repeat in 4-6 hours if clinically indicated.? Equal or Higher than 0.121 ng/mL---Abnormal. Myocardial Injury or Necrosis Likely? Biotin has been reported to cause a negative bias, interpret results relative to patient's use of biotin.? ?? Lab Interpretation Normal (test code = 94428-2) [facility]MINAL [id number] 14:07:00 Test Item Value Reference Range Interpretation Comments NT-proBNP (test code 133 pg/mL See_Comment H [Autom ated = [id number]) message] The system which generated this result transmitted reference range : <=125. The reference range was not used to interpret this result as normal/abnormal . LUL (test code = LUL) Biotin has been reported to cause a negative bias, interpret results relative to patient's use of biotin. Lab Interpretation Abnormal (test code = 47823-0) [facility]2019-08-12 13:59:00 Test Item Value Reference Range Interpretation Comments MAGNESIUM (test code = 5827566503) 2.0 mg/dL 1.7-2.4 Lab Interpretation (test code = Normal 55937-6) [facility]. METABOLIC PANEL (25388)2018-09-16 13:58:00 Test Item Value Reference Range Interpretation Comments NA (test code = 141 mmol/L 135-145 6366773327) K (test code = 4.6 mmol/L 3.5-5 5125352632) CL (test code = 110 mmol/L 98-108 H 2345906535) CO2 TOTAL (test code = 23 mmol/L 23-31 4537357140) AGAP (test code = 2-16 7084031201) BUN (test code = 12 mg/dL 7-23 7599306663) GLUCOSE (test code = 102 mg/dL 70-110 7579617672) CREATININE (test code = 0.68 mg/dL 0.5-1.04 0014960393) TOTAL BILI (test code = 0.2 mg/dL 0.1-1.4 2339184248) CALCIUM (test code = 8.8 mg/dL 8.6-10.6 0041614331) T PROTEIN (test code = 6.7 g/dL 6.3-8.2 8090463575) ALBUMIN (test code = 4.1 g/dL 3.5-5 2569424867) ALK PHOS (test code = 63 U/L 34-122 0888432174) ALT(SGPT) (test code = 23 U/L 9-51 7146875665) AST(SGOT) (test code = 32 U/L 13-40 1787018437) eGFR Calculation mL/min/1.73m2 (Non-) (test code = 0802517845) eGFR Calculation mL/min/1.73m2 () (test code = 1501544254) LUL (test code = LUL) Association of Glomerular Filtration Rate (GFR) and Staging of Kidney Disease*+ + + +| GFR (mL/min/1.73 m2)?| With Kidney Damage?|?Without Kidney Damage+ --------+ --------+ +|?>90?|?S tage one?|? Normal?+ ---------+ ---------+ +|?60-89? |?Stage two?|? Decreased GFR? + --+ --+ ------+|?30-59?|?Stage three?|? Stage three? + --+ --+ ------+|?15-29?|?Stage four? |? Stage four?+ -------+ -------+ +|?<15 (or dialysis)?|?Stage five? |? Stage five?+ -------+ -------+ +*Each stage assumes the associated GFR level has been in effect for at least three months.?Stages 1 to 5, with or without kidney disease, indicate chronic kidney disease.Notes: Determination of stages one and two (with eGFR >59mL/min/1.73 m2) requires estimation of kidney damage for at least three months as defined by structural or functional abnormalities of the kidney, manifested by either:Pathological abnormalities or Markers of kidney damage (including abnormalities in the composition of the blood or urine or abnormalities in imaging tests). Lab Interpretation Abnormal (test code = 55802-5) [facility]ham[facility]IP[facility]2019-08-12 13:58:00 Test Item Value Reference Range Interpretation Comments LIPASE (test code = [id number]) 611 U/L 0-220 H Lab Interpretation (test code = Abnormal 12402-9) [facility] 1 [id number] 13:57:56* * * * * * * * ORIGINAL REPORT * * * * * * * *CHEST PORTABLE ONE VIEW HISTORY:Chest pain TECHNIQUE:Frontal, portable projection of the chest is obtained. COMPARISON: 09/09/2014 FINDINGS: The lungs are clear. The heart size and mediastinal silhouetteare normal. No pleural effusion or pneumothorax is seen. CONCLUSIONS: No acute cardiopulmonary disease. [facility], Radiant Results Inft User - 09/16/2018 9:00 AM CDT* * * * * * * * ORIGINAL REPORT * * * * * * * *CHEST PORTABLE ONE VIEWHISTORY:Chest painTECHNIQUE: Frontal, portable projection of the chest is obtained.COMPARISON: 09/09/2014FINDINGS: The lungs areclear. The heart size and mediastinal silhouetteare normal. No pleural effusion or pneumothorax is se en.CONCLUSIONS: No acute cardiopulmonary disease.[facility]hamPROTHROMBIN TIME / [id number] 13:54:00 Test Item Value Reference Range Interpretation Comments PROTIME PATIENT (test See_Comment [Auto mated message] code = 5964-2) The system [employer] ich generated this result transmitted ref erence range: 12.0 - 1 4.7 Seconds. The re ference range was not u sed to interpret this result as normal/abnor mal. INR (test code = 6301-6) Nor mal INR <1.1; Warfarin Therap eutic range 2.0 to 3. 0 or 2.5 to 3.5, dep ending upon the indica tions. Lab Interpretation (test Normal code = 08882-0) [facility] WITH [id number] 13:44:00 Test Item Value Reference Range Interpretation Comments WBC (test code = See_Comment [Automated 3690-2) message] The sy stem which generated this result transmitted reference range : 4.30 - 11.10 10*3/?L. The reference range was not used to interpret this result as normal/abnormal . RBC (test code = See_Comment [Automated 879-8) message] The sy stem which generated this result transmitted reference range : 3.93 - 5.25 10*6/?L. The reference range was not used to interpret this result as normal/abnormal . HGB (test code = 10.9 g/dL 11.6-15 L 718-7) HCT (test code = 37.2 % 35.7-45.2 4544-3) MCV (test code = 76.5 fL 80.6-95.5 L 787-2) MCH (test code = 22.4 pg 25.9-32.8 L 785-6) MCHC (test code = 29.3 g/dL 31.6-35.1 L 786-4) RDW-SD (test code = 43.8 fL 39-49.9 31491-4) RDW-CV (test code = 16.3 % 12-15.5 H 788-0) PLT (test code = See_Comment [Automated 777-3) message] The sy stem which generated this result transmitted reference range : 166 - 358 10*3/ ?L. The reference r sakina was not used to interpret this result as normal/abnormal . MPV (test code = 10.6 fL 9.5-12.9 45136-8) NRBC/100 WBC (test See_Comment [Automat ed code = 5608984720) message] The system which generated this result transmitted reference range : 0.0 - 10.0 /100 WBCs. The refer ence range was not u sed to interpret th is result as normal/abnormal . NRBC x10^3 (test code <0.01 See_Comment [Auto mated = [id number]) message] The s ystem which generated this result transmitted reference range : 10*3/?L. The reference range was not used to interpret this result as normal/abnormal . GRAN MAT (NEUT) % 60.5 % (test code = 770-8) IMM GRAN % (test code 1.10 % = 0288379026) LYMPH % (test code = 23.2 % 736-9) MONO % (test code = 8.2 % 5905-5) EOS % (test code = 5.4 % 713-8) BASO % (test code = 1.6 % 706-2) GRAN MAT x10^3(ANC) 5.17 10*3/uL 1.88-7.09 (test code = 2670975004) IMM GRAN x10^3 (test 0.09 10*3/uL 0-0.06 H code = 3495613992) LYMPH x10^3 (test code 1.98 10*3/uL 1.32-3.29 = 731-0) MONO x10^3 (test code 0.70 10*3/uL 0.33-0.92 = 742-7) EOS x10^3 (test code = 0.46 10*3/uL 0.03-0.39 H 711-2) BASO x10^3 (test code 0.14 10*3/uL 0.01-0.07 H = 704-7) Lab Interpretation Abnormal (test code = 22912-7) [facility] Notes Date/Time Note Provider Source 2019-09-22 17:20:50-00:00 JAKE VYAS [facility] OPERATIVE/PROCEDURE REPORT REESE HA FACILITY: [facility] Billing #: [id number] Room: PER SOPR MR #: [id number] : 1975 DATE OF PROCEDURE: 09/22/2019 SURGEON: Jake Vyas MD PREOPERATIVE DIAGNOSIS: Cholelithiasis with choledocholithiasis. POSTOPERATIVE DIAGNOSIS: Cholelithiasis with choledocholithiasis. PROCEDURE: Laparoscopic cholecystectomy. ANTENNA INSTALLER: Kunal Smith RES. ESTIMATED BLOOD LOSS: 5 mL. SPECIMEN: Gallbladder sent for histopathology. INDICATIONS: This is a 43-year-old female, who d eveloped right upper quadrant abdominal pain with obstructive j aundice, investigation of which revealed choledocholithia sis and cholelithiasis. She underwent ERCP and retrieval of common bile duct stones. She was brought in today for e lective laparoscopic cholecystectomy. DESCRIPTION OF PROCEDURE: After induction of gen eral anesthesia, the patient's abdomen was prepped wi th ChloraPrep and draped in a sterile fashion. A small supraum bilical incision made using the scalpel and extended thr ough the layers of the abdomen using the electrocautery. Upon en tering the peritoneal cavity, Radha cannula introduced int o the abdomen, which was then insufflated with CO2 up to 15 mmH g pressure. Then, 10 mm port introduced into the subxiphoid area with two 5 mm ports along the right subcostal margin. The g allbladder grasped through the fundus and retracted in a ce phalad direction. Peritoneum covering the Calot triangl e incised and the cystic duct dissected from the infundibulum of the gallbladder to the common bile duct. The cystic duct then ligated twice distally and once proximally and d ivided. The cystic artery dissected medial to the duct and l igated twice proximally and once distally and divided. The ga llbladder was then excised from the gallbladder fossa using sh eric dissection. The gallbladder then retrieved using the EndoCa tc through the supraumbilical incision. Abdomen irrigated with warm saline antibiotic solution. The three ports then remove d under direct vision and the abdomen deflated from CO2. The cottrell praumbilical incision fascia closed using #0 Vicryl stitches in interrupted fashion and skin of the four incisions closed us ing 4-0 Monocryl in a subcuticular fashion. The patient tolerated procedure well and went to recovery in stable co ndition. OB/MODL /[id number]
[2022-08-15 14:13] LABS: Absolute Lymphocytes (CBC) 1.6 K/uL (0.7-4.9); Lymphocytes % 14.7 % (15.3-44.8); MCV 75.7 fL (80-100); MPV 7.3 fL (7.6-11.3); RBC Red Blood Cell Count 3.57 M/uL (3.86-4.86)
[2022-08-15 14:22] LABS: Potassium 3.7 mEq/L (3.5-5.1)
[2022-08-15 14:25] LABS: Specific Gravity 1.013 (1.005-1.030); Urine Bacteria <20 /HPF (<20); Urine Bilirubin NEGATIVE (Negative); Urine Blood 3+ (OVER) (Negative); Urine Clarity Turbid (Clear); Urine Color Colorless (Yellow); Urine Glucose NEGATIVE (Negative); Urine Mucus Slight /HPF (None Seen); Urine Protein NEGATIVE (Negative); Urine RBC 21-50 /HPF (None Seen); Urine Urobilinogen Normal (Normal); Urine pH 5.5 (5.0-7.0)
--- NOTE | 2022-08-15 15:36 | RAD REPORT ---
EXAM DESCRIPTION: US - Pelvis Complete - 08/15/2022 2:46 pm CLINICAL HISTORY: PELVIC PAIN/BLEEDING FOR 2 WEEKS COMPARISON: Transvaginal Study Probe dated 08/15/2022 TECHNIQUE: Sonographic grayscale and color flow images of the pelvis were obtained through transab dominal and transvaginal approaches. FINDINGS: The uterus is normal in size, shape and echotexture. The uterus measures 9.2 cm in length. The endometrial cavity is distended with isoechoic degree o'clock material. Overall, the endometrial cavity measures 1.7 centimeter in thickness. Mild hyperemia along the mid uterine endometrium, a nond istended segment. No focal suspicious endometrial lesion. No suspicious adnexal masses. The right ovary is not well-visualized due to overlying bowel gas. Left ovary measures 3.2 x 2.7 x 3.3 centimeter. It contains a dominant 2.3 centimeter cyst or follicle, l ikely physiologic. Normal Doppler blood flow was demonstrated to the left ovary. No significant pelvic ascites. IMPRESSION: Distended endometrial cavity with debris or clot material. Mild hyperemia along the medi an tearing endometrium. Findings could simply relate to retained clot material, although possibility of superimposed endometritis remains. Please correlate clinically. No suspicious focal endometrial le sions. Nonvisualization of the right ovary which limits evaluation. No suspicious adnexal abnormality.
--- NOTE | 2022-08-15 15:37 | RAD REPORT ---
EXAM DESCRIPTION: US - Transvaginal Study Probe - 08/15/2022 2:49 pm CLINICAL HISTORY: VAGINAL BLEEDING COMPARISON: Pelvis Complete dated 08/15/2022 TECHNIQUE: Sonographic grayscale and color flow images of the pelvis were obtained through transabd ominal and transvaginal approaches. FINDINGS: The uterus is normal in size, shape and echotexture. The uterus measures 9.2 cm in length. The endometrial cavity is distended with isoechoic degree o'clock material. Overall, the endometrial cavity measures 1.7 centimeter in thickness. Mild hyperemia along the mid uterine endometrium, a nond istended segment. No focal suspicious endometrial lesion. No suspicious adnexal masses. The right ovary is not well-visualized due to overlying bowel gas. Left ovary measures 3.2 x 2.7 x 3.3 centimeter. It contains a dominant 2.3 centimeter cyst or follicle, l ikely physiologic. Normal Doppler blood flow was demonstrated to the left ovary. No significant pelvic ascites. IMPRESSION: Distended endometrial cavity with debris or clot material. Mild hyperemia along the medi an tearing endometrium. Findings could simply relate to retained clot material, although possibility of superimposed endometritis remains. Please correlate clinically. No suspicious focal endometrial le sions. Nonvisualization of the right ovary which limits evaluation. No suspicious adnexal abnormality.
--- NOTE | 2022-08-15 15:58 | ER ---
Nurse's Notes [facility] Name: Rachel King Age: 46 yrs Sex: Female : 1975 Arrival Date: 08/15/2022 Time: 13:14 Bed 18 Private MD: Diagnosis: Menorrhagia Presentation: 08/15 13:32 Chief complaint: Patient states: she has been having vaginal bleeding for approx 2 ap3 weeks with clots. Coronavirus screen: At this time, the client does not indicate any symptoms associated with coronavirus-19. Ebola Screen: No symptoms or risks identified at this time. Initial Sepsis Screen: Does the patient meet any 2 criteria? No. Patient's initial sepsis screen is negative. Does the patient have a suspected source of infection? No. Patient's initial sepsis screen is negative. Risk Assessment: Do you want to hurt yourself or someone else? Patient reports no desire to harm self or others. Onset of symptoms was August 01, 2022. 13:32 Method Of Arrival: Ambulatory ap3 13:32 Acuity: TWILA 3 ap3 Triage Assessment: 13:34 General: Appears in no apparent distress. Behavior is calm, cooperative. Pain: ap3 Complains of pain in suprapubic area Pain currently is 8 out of 10 on a pain scale. Pain began 2 weeks ago. Neuro: Level of Consciousness is awake, alert, obeys commands, Oriented to person, place, time, situation. Cardiovascular: Patient's skin is warm and dry. Respiratory: Airway is patent Respiratory effort is even, unlabored, Respiratory pattern is regular, symmetrical. : Reports vaginal bleeding that is bright red, with clots. [place]: 13:35 LMP 08/01/2022 ap3 Historical: - Allergies: 13:33 Codeine; ap3 - PMHx: 13:33 Chronic pain; Thyroid problem; ap3 - Immunization history:: Client reports receiving the 2nd dose of the Covid vaccine. - Social history:: Smoking status: Patient reports the use of cigarette tobacco products, smokes one pack cigarettes per day. Screenin:34 [facility] ED Fall Risk Assessment (Adult) History of falling in the last 3 months, ap3 including since admission No falls in past 3 months (0 pts). Abuse screen: Denies threats or abuse. Nutritional screening: No deficits noted. Tuberculosis screening: No symptoms or risk factors identified. Assessment: 14:06 General: Appears in no apparent distress. comfortable, Behavior is calm, cooperative, ld1 appropriate for age. Pain: Denies pain. Neuro: Level of Consciousness is awake, alert, obeys commands, Oriented to person, place, time, situation. Cardiovascular: Capillary refill < 3 seconds Patient's skin is warm and dry. Respiratory: Airway is patent Respiratory effort is even, unlabored. GI: Abdomen is flat, non-distended. : Reports vaginal bleeding that is. EENT: No signs and/or symptoms were reported regarding the EENT system. Derm: No signs and/or symptoms reported regarding the dermatologic system. Musculoskeletal: No signs and/or symptoms reported regarding the musculoskeletal system. 14:57 Reassessment: Patient appears in no apparent distress at this time. No changes from ld1 previously documented assessment. Patient and/or family updated on plan of care and expected duration. Pain level reassessed. Patient is alert, oriented x 3, equal unlabored respirations, skin warm/dry/pink. Vital Signs: 13:32 Pulse 79; Resp 17; Temp 98.1; Pulse Ox 100% ; Weight 86.18 kg; Height 5 ft. 6 in. ; ap3 Pain 8/10; 13:34 BP 121 / 76; ap3 14:06 BP 107 / 68; Pulse 68; Resp 18; Pulse Ox 100% on R/A; ld1 13:32 Body Mass Index 30.67 (86.18 kg, 167.64 cm) ap3 13:32 Pain Scale: Adult ap3 ED Course: 13:20 Patient arrived in ED. am2 13:33 Triage completed. ap3 13:34 Sary Thornton FNP-C is PHCP. snw 13:34 Elieser Philip MD is Attending Physician. snw 13:35 Arm band placed on left wrist. ap3 13:42 Nohemi Ellis RN is Primary Nurse. ld1 14:07 Patient has correct armband on for positive identification. Placed in gown. Bed in low ld1 position. Call light in reach. Side rails up X2. manager monitoring on. Pulse ox on. NIBP on. Door closed. Noise minimized. Warm blanket given. 14:07 No provider procedures requiring assistance completed. ld1 14:07 Inserted saline lock: 20 gauge in right antecubital area, using aseptic technique. ld1 Blood collected. 14:36 Transvaginal Study Probe In Process Unspecified. EDMS 14:47 Pelvis Complete In Process Unspecified. EDMS 15:19 Urine collected: clean catch specimen, blood tinged. tm3 15:56 Halina Painting MD is Referral Physician. snw 16:23 IV discontinued, intact, bleeding controlled, No redness/swelling at site. ld1 Administered Medications: No medications were administered Medication: 16:23 VIS not applicable for this client. ld1 Outcome: 15:57 Discharge ordered by . snw 16:23 Discharged to home ambulatory. ld1 16:23 Condition: stable 16:23 Discharge instructions given to patient, Instructed on discharge instructions, follow up and referral plans. medication usage, Demonstrated understanding of instructions, follow-up care, medications, Prescriptions given X 1. 16:23 Patient left the ED. ld1 Signatures: Dispatcher [employer] EDMS Bob Gray tm3 Sary Thornton, MARZIPAN MAKER-C MARZIPAN MAKER-Csnw Chery Beck am2 Chery Waterman, RN RN ap3 Nohemi Ellis, RN RN ld1
--- NOTE | 2022-08-15 15:58 | EDPHYS ---
Physician Documentation [facility] Name: Rachel King Age: 46 yrs Sex: Female : 1975 Arrival Date: 08/15/2022 Time: 13:14 Bed 18 Private MD: ED Physician Elieser Philip HPI: 08/15 14:30 This 46 yrs old Female presents to ER via Ambulatory with complaints of Vaginal snw Bleeding, Abdominal Pain - low. 14:30 The patient presents with vaginal bleeding that is moderate. Onset: The snw symptoms/episode began/occurred 2 week(s) ago, and became persistent. Associated signs and symptoms: Pertinent positives: cramping. Severity of symptoms: At their worst the symptoms were moderate. The patient has experienced similar episodes in the past, pt states s/s are the same but have lasted too long. The patient has not recently seen a physician, and does not have an established primary care provider, just moved to [facility]. GLOBE CHANGER: 13:35 LMP 08/01/2022 ap3 Historical: - Allergies: 13:33 Codeine; ap3 - PMHx: 13:33 Chronic pain; Thyroid problem; ap3 - Immunization history:: Client reports receiving the 2nd dose of the Covid vaccine. - Social history:: Smoking status: Patient reports the use of cigarette tobacco products, smokes one pack cigarettes per day. ROS: 14:29 Constitutional: Negative for fever, chills, and weight loss, Eyes: Negative for injury, snw pain, redness, and discharge, ENT: Negative for injury, pain, and discharge, Neck: Negative for injury, pain, and swelling, Cardiovascular: Negative for chest pain, palpitations, and edema, Respiratory: Negative for shortness of breath, cough, wheezing, and pleuritic chest pain, Abdomen/GI: Negative for abdominal pain, nausea, vomiting, diarrhea, and constipation, Back: Negative for injury and pain, MS/Extremity: Negative for injury and deformity, Skin: Negative for injury, rash, and discoloration, Neuro: Negative for headache, weakness, numbness, tingling, and seizure, Psych: Negative for depression, anxiety, suicide ideation, homicidal ideation, and hallucinations. 14:29 : Positive for vaginal bleeding, menstrual abnormality. Exam: 14:28 Constitutional: This is a well developed, well nourished patient who is awake, alert, snw and in no acute distress. Head/Face: Normocephalic, atraumatic. 14:28 Neck: Trachea midline, no thyromegaly or masses palpated, and no cervical lymphadenopathy. Supple, full range of motion without nuchal rigidity, or vertebral point tenderness. No Meningismus. Chest/axilla: Normal chest wall appearance and motion. Nontender with no deformity. No lesions are appreciated. Cardiovascular: Regular rate and rhythm with a normal S1 and S2. No gallops, murmurs, or rubs. Normal PMI, no JVD. No pulse deficits. Respiratory: Lungs have equal breath sounds bilaterally, clear to auscultation and percussion. No rales, rhonchi or wheezes noted. No increased work of breathing, no retractions or nasal flaring. Abdomen/GI: Soft, non-tender, with normal bowel sounds. No distension or tympany. No guarding or rebound. No evidence of tenderness throughout. Back: No spinal tenderness. No costovertebral tenderness. Full range of motion. Skin: Warm, dry with normal turgor. Pale color with no rashes, no lesions, and no evidence of cellulitis. MS/ Extremity: Pulses equal, no cyanosis. Neurovascular intact. Full, normal range of motion. Neuro: Awake and alert, GCS 15, oriented to person, place, time, and situation. Cranial nerves II-XII grossly intact. Motor strength 5/5 in all extremities. Sensory grossly intact. Cerebellar exam normal. Normal gait. Psych: Awake, alert, with orientation to person, place and time. Behavior, mood, and affect are within normal limits. 14:28 Eyes: Conjunctiva: pale, bilaterally. Vital Signs: 13:32 Pulse 79; Resp 17; Temp 98.1; Pulse Ox 100% ; Weight 86.18 kg; Height 5 ft. 6 in. ; ap3 Pain 8/10; 13:34 BP 121 / 76; ap3 14:06 BP 107 / 68; Pulse 68; Resp 18; Pulse Ox 100% on R/A; ld1 13:32 Body Mass Index 30.67 (86.18 kg, 167.64 cm) ap3 13:32 Pain Scale: Adult ap3 MDM: 13:38 Patient medically screened. snw 14:30 Differential diagnosis: dysmenorrhea, endometriosis, menometrorrhagia, menorrhea, snw ovarian cyst. Data reviewed: vital signs, nurses notes. 08/15 13:45 Order name: Abo/rh Typing; Complete Time: 15:30 snw 08/15 13:45 Order name: Basic Metabolic Panel; Complete Time: 14:23 snw 08/15 13:45 Order name: CBC with Diff; Complete Time: 14:23 snw 08/15 13:45 Order name: Urinalysis w/ reflexes; Complete Time: 14:38 snw 08/15 14:42 Order name: Urine Culture EDNJ 08/15 14:12 Order name: Transvaginal Study Probe; Complete Time: 15:43 EDNJ 08/15 14:47 Order name: Pelvis Complete; Complete Time: 15:43 EDNJ 08/15 13:45 Order name: IV Saline Lock; Complete Time: 14:09 snw 08/15 13:45 Order name: Labs collected and sent; Complete Time: 14:09 snw 08/15 13:45 Order name: NPO; Complete Time: 13:49 snw Administered Medications: No medications were administered Disposition: 17:37 I agree with the assessment and plan of care. I reviewed the patient's care provided by ledy the Advanced Practice Provider and agree with the diagnosis and treatment plan. Disposition Summary: 08/15/22 15:57 Discharge Ordered Location: Home snw Condition: Stable snw Diagnosis - Menorrhagia snw Followup: snw - With: Emergency Department - When: As needed - Reason: Worsening of condition Followup: snw - With: Halina Painting MD - When: 5 - 6 days - Reason: Recheck today's complaints, Continuance of care, Re-evaluation by your physician Discharge Instructions: - Discharge Summary Sheet snw - Iron Deficiency Anemia, Adult snw - Iron-Rich Diet snw - Menorrhagia snw Forms: - Medication Reconciliation Form snw - Thank You Letter snw - Antibiotic Education snw - Prescription Opioid Use snw - Patient Portal Instructions.htm snw Prescriptions: - Ferrous Sulfate 325 mg (65 mg Iron) Oral Tablet - take 1 tablet by ORAL route every 8 hours; 90 tablet; Refills: 0, Product snw Selection Permitted Signatures: Dispatcher [employer] EDSary Singer FNP-C CAREER DEVELOPMENT ENGINEER-Csnw Chery Waterman RN RN ap3 Elieser Philip MD MD [id number] Corrections: (The following items were deleted from the chart) 14:12 13:45 Pelvis Complete+US.RAD.BRZ ordered. EDMS EDMS
[2022-08-15 17:28] VITALS: TEMP 98.1; O2SAT 100
[2022-08-15 17:31] VITALS: BP 107/68
== END 2022-08-15 16:23 | disposition home or self-care (01) ==
LOC: ER 13:14
DX: N92.0 Excessive and frequent menstruation with regular cycle (principal)
CPT/HCPCS: 36415; 76830; 76856; 80048; 81001; 85025; 86900; 86901; 87086; 87088; 99284